=== PATIENT | female | born 1950 | race Hispanic/Latino ===

== ENCOUNTER 2016-12-21 22:13 | Emergency (ER) | payer MEDICARE ==
[2016-12-21 23:22] VITALS: BP 124/70
--- NOTE | 2016-12-22 00:08 | XRay Report ---
FINAL REPORT PROCEDURE: XR CHEST ROUTINE 2V TECHNIQUE: PA and lateral chest radiographs were obtained. CPT 58878 HISTORY: SHAAN COMPARISON: No prior studies are available for comparison. FINDINGS: Heart: Normal. Mediastinum/Vessels: Normal. Lungs/Pleural space: There is moderate COPD. There is a small left pleural effusion. There are bibasilar infiltrates. There are right perihilar infiltrates. There are no pneumothoraces.. Bony thorax: No acute osseous abnormality. Other: IMPRESSION: The heart size is normal.. There is moderate COPD. There is a small left pleural effusion. There are bibasilar infiltrates. There are right perihilar infiltrates. There are no pneumothoraces..
[2016-12-22] MEDS ORDERED: ZOFRAN ODT PO ONE (05:22)
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
== END 2016-12-22 05:44 | disposition home or self-care (01) ==
LOC: ED 22:13
DX: J18.9 Pneumonia, unspecified organism (principal); M54.9 Dorsalgia, unspecified
CPT/HCPCS: 71020; Q0162

== ENCOUNTER 2017-04-15 18:05 | Emergency (ER) | payer MEDICARE ==
[2017-04-15 18:21] VITALS: BP 102/61
--- NOTE | 2017-04-16 00:18 | Emergency Department Report ---
ED General Adult HPI - General Chief complaint: Medical Clearance Stated complaint: DEPRESSION Time Seen by Provider: 04/16/17 00:03 Source: patient Mode of arrival: Ambulatory Limitations: No Limitations - History of Present Illness Initial comments: Patient is 66 years old female history of COPD, HIV and arthritis and depression. Patient stated that she was at [facility] ER diagnosed with pneumonia, she was given a prescription for this zithromax, she is unable to fill the prescription because of the copayment of $4 that she does not have. She stated that her brother is coming tomorrow and he usually had the money so she can get her prescription filled tomorrow. She came here today to see if she can get a dose of her medication before tomorrow. Patient denied any suicidal or homicidal thoughts she denied any visual or auditory hallucination. She admitted depression but she does not want any help for it now. Patient denied any chest pain shortness of breaths fever, nausea or vomiting or diarrhea. - Related Data Allergies Allergy/AdvReac Type Severity Reaction Status Date / Time amoxicillin [From Augmentin] Allergy Unknown Verified 12/21/16 23:10 clavulanic acid Allergy Unknown Verified 12/21/16 23:10 [From Augmentin] gentamicin Allergy Unknown Verified 12/21/16 23:10 ED Review of Systems ROS: Stated complaint: DEPRESSION Other details as noted in HPI Comment: All other systems reviewed and negative Constitutional: denies: chills, fever Respiratory: cough. denies: shortness of breath, SOB with exertion Cardiovascular: denies: chest pain, palpitations Gastrointestinal: denies: abdominal pain, nausea, vomiting, diarrhea Neurological: denies: headache, weakness, numbness, paresthesias Psychiatric: depression. denies: auditory hallucinations, visual hallucinations , homicidal thoughts, suicidal thoughts ED Past Medical Hx - Past Medical History Hx Arthritis: Yes Hx Psychiatric Treatment: Yes (depression) Hx COPD: Yes Hx HIV: Yes Additional medical history: sleep apnea - Surgical History Additional Surgical History: tonsilectomy, hysterectomy - Social History Smoking Status: Current Every Day Smoker Substance Use Type: None ED Physical Exam - General Limitations: No Limitations General appearance: alert, in no apparent distress - Head Head exam: Present: atraumatic, normocephalic - Eye Eye exam: Present: normal appearance, PERRL - ENT ENT exam: Present: normal exam, normal orophraynx, mucous membranes moist - Neck Neck exam: Present: normal inspection, full ROM. Absent: tenderness, meningismus - Respiratory Respiratory exam: Present: normal lung sounds bilaterally. Absent: respiratory distress, wheezes, rales, rhonchi, stridor, accessory muscle use, decreased breath sounds, prolonged expiratory - Cardiovascular Cardiovascular Exam: Present: regular rate, normal rhythm, normal heart sounds - GI/Abdominal GI/Abdominal exam: Present: soft, normal bowel sounds. Absent: distended, tenderness, guarding, rebound, rigid, organomegaly, mass, bruit, pulsatile mass , hernia - Extremities Exam Extremities exam: Present: normal inspection, full ROM, normal capillary refill - Back Exam Back exam: Present: normal inspection, full ROM. Absent: CVA tenderness (R), CVA tenderness (L), muscle spasm, paraspinal tenderness, vertebral tenderness - Neurological Exam Neurological exam: Present: alert, oriented X3, CN II-XII intact, normal gait - Skin Skin exam: Present: warm, intact, normal color ED Course Vital Signs 04/15/17 18:14 Temperature 98.1 F Pulse Rate 80 Respiratory 18 Rate Blood Pressure 102/61 O2 Sat by Pulse 98 Oximetry - Reevaluation(s) Reevaluation #1: 04/16/17 02:30 Patient observed in the ER, no acute distress. Patient will be discharged home to refill her prescription this morning and to follow-up with her primary care physician and [place] [facility] for further management. Critical care attestation.: If time is entered above; I have spent that time in minutes in the direct care of this critically ill patient, excluding procedure time. ED Disposition Clinical Impression: Pneumonia Disposition: - TO HOME OR SELFCARE Is pt being admited?: No Condition: Stable Instructions: Bacterial Pneumonia (ED) Referrals: PRIMARY CARE, [Primary Care Provider] - 3-5 Days
[2017-04-16] MEDS ORDERED: ABILIFY PO ONE (00:19)
[2017-04-16] MEDS ORDERED: ZITHROMAX PO ONE (00:19)
[2017-04-16] MEDS ORDERED: PROVENTIL IH ONE (00:56)
[2017-04-16] MEDS ORDERED: TORADOL PO ONE (00:56)
[2017-04-16] MEDS ORDERED: PEPCID PO ONE (00:56)
== END 2017-04-16 03:39 | disposition home or self-care (01) ==
LOC: ED 18:05
DX: J18.9 Pneumonia, unspecified organism (principal); J44.9 Chronic obstructive pulmonary disease, unspecified; M19.90 Unspecified osteoarthritis, unspecified site; Z88.1 Allergy status to other antibiotic agents; G47.30 Sleep apnea, unspecified; F17.200 Nicotine dependence, unspecified, uncomplicated
CPT/HCPCS: 99282

== ENCOUNTER 2017-07-28 11:13 | Emergency (ER) | payer MEDICARE ==
[2017-07-28 12:16] VITALS: BP 148/87
--- NOTE | 2017-07-28 14:11 | Emergency Department Report ---
ED General Adult HPI - General Chief complaint: Medical Clearance Stated complaint: SOB Time Seen by Provider: 07/28/17 13:45 Source: patient Mode of arrival: Ambulatory Limitations: No Limitations - History of Present Illness Initial comments: Patient is a 66-year-old female with past medical history of COPD who states she's been in alf for approximately 1 month without meds. Patient states he has some mild shortness of breath but denies any chest pains or cough congestion and fevers chills night sweats or hemoptysis. Patient wanted to come to the emergency department today just to get checked out - Related Data Previous Rx's Medication Instructions Recorded Last Taken Type ALBUTEROL Inhaler [ProAir HFA 2 puff IH QID PRN #1 inhalation 07/28/17 Unknown Rx Inhaler] Allergies Allergy/AdvReac Type Severity Reaction Status Date / Time amoxicillin [From Augmentin] Allergy Unknown Verified 12/21/16 23:10 clavulanic acid Allergy Unknown Verified 12/21/16 23:10 [From Augmentin] gentamicin Allergy Unknown Verified 12/21/16 23:10 ED Review of Systems ROS: Stated complaint: SOB Other details as noted in HPI Comment: All other systems reviewed and negative ED Past Medical Hx - Past Medical History Hx Arthritis: Yes Hx Psychiatric Treatment: Yes (depression) Hx COPD: Yes Hx HIV: Yes Additional medical history: sleep apnea - Surgical History Additional Surgical History: tonsilectomy, hysterectomy - Social History Smoking Status: Never Smoker Substance Use Type: None - Medications Home Medications: Home Medications Medication Instructions Recorded Confirmed Last Taken Type ALBUTEROL Inhaler [ProAir HFA 2 puff IH QID PRN #1 inhalation 07/28/17 Unknown Rx Inhaler] ED Physical Exam - General Limitations: No Limitations General appearance: alert, in no apparent distress - Head Head exam: Present: atraumatic, normocephalic - Eye Eye exam: Present: normal appearance - ENT ENT exam: Present: mucous membranes moist - Neck Neck exam: Present: normal inspection - Respiratory Respiratory exam: Present: normal lung sounds bilaterally. Absent: respiratory distress, wheezes, rales, rhonchi, stridor, chest wall tenderness, accessory muscle use, decreased breath sounds, prolonged expiratory - Cardiovascular Cardiovascular Exam: Present: regular rate, normal rhythm. Absent: systolic murmur, diastolic murmur, rubs, gallop - GI/Abdominal GI/Abdominal exam: Present: soft, normal bowel sounds - Extremities Exam Extremities exam: Present: normal inspection - Back Exam Back exam: Present: normal inspection - Neurological Exam Neurological exam: Present: alert, oriented X3 - Psychiatric Psychiatric exam: Present: normal affect, normal mood - Skin Skin exam: Present: warm, dry, intact, normal color. Absent: rash ED Course Vital Signs 07/28/17 12:11 Temperature 98.6 F Pulse Rate 91 H Respiratory 16 Rate Blood Pressure 148/87 O2 Sat by Pulse 97 Oximetry ED Medical Decision Making - Medical Decision Making Despite having a history of COPD the patient's lungs sound within normal limits at this time. Patient will be referred to pulmonology for routine follow-up will be given a albuterol inhaler. Critical care attestation.: If time is entered above; I have spent that time in minutes in the direct care of this critically ill patient, excluding procedure time. ED Disposition Clinical Impression: COPD (chronic obstructive pulmonary disease) Disposition: DC-01 TO HOME OR SELFCARE Is pt being admited?: No Does the pt Need Aspirin: No Condition: Stable Instructions: Chronic Obstructive Pulmonary Disease (ED) Prescriptions: ALBUTEROL Inhaler [ProAir HFA Inhaler] 2 puff IH QID PRN #1 inhalation PRN Reason: Shortness Of Breath Referrals: PRIMARY CARE, [Primary Care Provider] - 3-5 Days
== END 2017-07-28 14:34 | disposition home or self-care (01) ==
LOC: ED 11:13
DX: J44.9 Chronic obstructive pulmonary disease, unspecified (principal); Z88.1 Allergy status to other antibiotic agents; Z88.8 Allergy status to other drugs, medicaments and biological substances
CPT/HCPCS: 99282

== ENCOUNTER 2017-08-29 15:05 | Emergency (ER) | payer MEDICARE ==
[2017-08-29 15:34] VITALS: BP 107/60
[2017-08-29] MEDS ORDERED: NACL 0.9% 1000 ML 1,000 ML IV ONE (15:35)
[2017-08-29 16:31] LABS: Bilirubin,Urine NEG (Negative); Blood,Urine NEG (Negative); Color,Urine Yellow (Yellow); RBC,Urine < 1.0 /HPF (0.0-6.0); Urobilinogen,Urine < 2.0 mg/dL (<2.0)
--- NOTE | 2017-08-29 16:46 | Emergency Department Report ---
ED Abdominal Pain HPI - General Chief Complaint: Nausea/Vomiting/Diarrhea Stated Complaint: NAUSEA/VOMITING Time Seen by Provider: 08/29/17 16:21 Source: patient Mode of arrival: Ambulatory Limitations: No Limitations - History of Present Illness Initial Comments: Patient is a 66-year-old female who is presenting with GERD type symptoms. Patient states for the past 2 days she's had some nausea when she is lying flat. Patient was set up last night to get the symptoms resolved. Patient says a burning sensation in epigastrium with some radiation to the chest. Patient had episodes of nausea vomiting with it. Patient denies any fevers chills diarrhea. Patient states in the daytime she is pain-free is pain-free at this time. She has a history of taking ranitidine was been told she needs to be on a PPI - Related Data Previous Rx's Medication Instructions Recorded Last Taken Type ALBUTEROL Inhaler [ProAir HFA 2 puff IH QID PRN #1 inhalation 07/28/17 Unknown Rx Inhaler] Ondansetron [Zofran Odt] 4 mg PO Q8HR PRN #10 tab.rapdis 08/29/17 Unknown Rx Pantoprazole [Protonix TAB] 20 mg PO DAILY #30 tablet. 08/29/17 Unknown Rx Allergies Allergy/AdvReac Type Severity Reaction Status Date / Time amoxicillin [From Augmentin] Allergy Unknown Verified 12/21/16 23:10 clavulanic acid Allergy Unknown Verified 12/21/16 23:10 [From Augmentin] gentamicin Allergy Unknown Verified 12/21/16 23:10 ED Review of Systems ROS: Stated complaint: NAUSEA/VOMITING Other details as noted in HPI Comment: All other systems reviewed and negative ED Past Medical Hx - Past Medical History Hx GERD: Yes Hx Arthritis: Yes Hx Psychiatric Treatment: Yes (depression) Hx COPD: Yes Hx HIV: Yes (last check[facility] at [facility]) Additional medical history: sleep apnea - Surgical History Additional Surgical History: tonsilectomy, hysterectomy - Social History Smoking Status: Former Smoker Substance Use Type: None - Medications Home Medications: Home Medications Medication Instructions Recorded Confirmed Last Taken Type ALBUTEROL Inhaler [ProAir HFA 2 puff IH QID PRN #1 inhalation 07/28/17 Unknown Rx Inhaler] Ondansetron [Zofran Odt] 4 mg PO Q8HR PRN #10 tab.rapdis 08/29/17 Unknown Rx Pantoprazole [Protonix TAB] 20 mg PO DAILY #30 tablet. 08/29/17 Unknown Rx ED Physical Exam - General Limitations: No Limitations General appearance: alert, in no apparent distress - Head Head exam: Present: atraumatic, normocephalic - Eye Eye exam: Present: normal appearance - ENT ENT exam: Present: mucous membranes moist - Neck Neck exam: Present: normal inspection - Respiratory Respiratory exam: Present: normal lung sounds bilaterally. Absent: respiratory distress, wheezes, rales, rhonchi - Cardiovascular Cardiovascular Exam: Present: regular rate, normal rhythm. Absent: systolic murmur, diastolic murmur, rubs, gallop - GI/Abdominal GI/Abdominal exam: Present: soft, normal bowel sounds. Absent: distended, tenderness, guarding, rebound - Extremities Exam Extremities exam: Present: normal inspection - Back Exam Back exam: Present: normal inspection - Neurological Exam Neurological exam: Present: alert, oriented X3 - Psychiatric Psychiatric exam: Present: normal affect, normal mood - Skin Skin exam: Present: warm, dry, intact, normal color. Absent: rash ED Course Vital Signs 08/29/17 15:30 Temperature 99.3 F Pulse Rate 96 H Respiratory 18 Rate Blood Pressure 107/60 O2 Sat by Pulse 96 Oximetry ED Medical Decision Making - Medical Decision Making Patient be started on Protonix and will be discharged home. Critical care attestation.: If time is entered above; I have spent that time in minutes in the direct care of this critically ill patient, excluding procedure time. ED Disposition Clinical Impression: GERD (gastroesophageal reflux disease) Qualifiers: Esophagitis presence: without esophagitis Qualified Code(s): K21.9 - Gastro- esophageal reflux disease without esophagitis Disposition: DC- TO HOME OR SELFCARE Is pt being admited?: No Does the pt Need Aspirin: No Condition: Stable Instructions: Gastroesophageal Reflux Disease (ED) Prescriptions: Ondansetron [Zofran Odt] 4 mg PO Q8HR PRN #10 tab.rapdis PRN Reason: Nausea Pantoprazole [Protonix TAB] 20 mg PO DAILY #30 tablet. Referrals: PRIMARY CARE, [Primary Care Provider] - 3-5 Days
== END 2017-08-29 17:04 | disposition home or self-care (01) ==
LOC: ED 15:05
DX: K21.9 Gastro-esophageal reflux disease without esophagitis (principal); M19.90 Unspecified osteoarthritis, unspecified site; J44.9 Chronic obstructive pulmonary disease, unspecified; Z87.891 Personal history of nicotine dependence; Z88.1 Allergy status to other antibiotic agents; Z88.8 Allergy status to other drugs, medicaments and biological substances; Z90.710 Acquired absence of both cervix and uterus
CPT/HCPCS: 81001; 99283

== ENCOUNTER 2017-09-18 18:09 | Emergency (ER) | payer MEDICARE ==
[2017-09-18] MEDS ORDERED: BENADRYL IV ONE (20:53)
[2017-09-18] MEDS ORDERED: ZOFRAN IV ONE (20:53)
--- NOTE | 2017-09-18 20:56 | Emergency Department Report ---
ED Headache HPI - General Chief Complaint: Headache Stated Complaint: MIGRAINE, NAUSEA Time Seen by Provider: 09/18/17 20:02 Source: patient Exam Limitations: no limitations - History of Present Illness Timing/Duration: other (2 weeks. ) Quality: severe Head Injury Location: frontal Recent Head Trauma: no recent headache/trauma, chronic headaches Modifying Factors: improves with: cold therapy, exposure to light, medication, movement, rest Associated Symptoms: denies symptoms, nausea/vomiting. denies: confusion, fatigue, facial pain, fever/chills, flushing, loss of consciousness, nasal congestion, nasal drainage, numbness in legs/feet, rash, seizures, sinus infection, stiff neck, vision changes, weakness Allergies/Adverse Reactions: Allergies amoxicillin [From Augmentin] Allergy (Verified 12/21/16 23:10) Unknown clavulanic acid [From Augmentin] Allergy (Verified 12/21/16 23:10) Unknown gentamicin Allergy (Verified 12/21/16 23:10) Unknown Home Medications: Ambulatory Orders ALBUTEROL Inhaler [ProAir HFA Inhaler] 2 puff IH QID PRN #1 inhalation 07/28/17 Pantoprazole [Protonix TAB] 20 mg PO DAILY #30 tablet.dr 08/29/17 Ondansetron [Zofran Odt] 4 mg PO Q8HR PRN #10 tab.rapdis 09/19/17 methylPREDNISolone [Medrol] 4 mg PO DAILY 6 Days #1 tab.ds.pk 09/19/17 ED Review of Systems ROS: Stated complaint: MIGRAINE, NAUSEA Other details as noted in HPI Constitutional: denies: chills, fever Eyes: denies: eye pain, eye discharge, vision change ENT: denies: ear pain, throat pain Respiratory: denies: cough, shortness of breath, wheezing Cardiovascular: denies: chest pain, palpitations Endocrine: no symptoms reported Gastrointestinal: nausea. denies: abdominal pain, diarrhea Genitourinary: denies: urgency, dysuria, discharge Musculoskeletal: denies: back pain, joint swelling, arthralgia Skin: denies: rash, lesions Neurological: headache. denies: weakness, paresthesias Psychiatric: denies: anxiety, depression Hematological/Lymphatic: denies: easy bleeding, easy bruising ED Past Medical Hx - Past Medical History Previous Medical History?: Yes Hx GERD: Yes Hx Arthritis: Yes Hx Psychiatric Treatment: Yes (depression) Hx COPD: Yes Hx HIV: Yes ([facility] Additional medical history: sleep apnea - Surgical History Past Surgical History?: Yes Additional Surgical History: tonsilectomy, hysterectomy - Family History Family history: hypertension - Social History Smoking Status: Current Every Day Smoker Substance Use Type: None - Medications Home Medications: Home Medications Medication Instructions Recorded Confirmed Last Taken Type ALBUTEROL Inhaler [ProAir HFA 2 puff IH QID PRN #1 inhalation 07/28/17 Unknown Rx Inhaler] Pantoprazole [Protonix TAB] 20 mg PO DAILY #30 tablet.dr 08/29/17 Unknown Rx Ondansetron [Zofran Odt] 4 mg PO Q8HR PRN #10 tab.rapdis 09/19/17 Unknown Rx methylPREDNISolone [Medrol] 4 mg PO DAILY 6 Days #1 tab.ds.pk 09/19/17 Unknown Rx ED Physical Exam - General Limitations: No Limitations General appearance: alert, in no apparent distress - Head Head exam: Present: atraumatic, normocephalic - Eye Eye exam: Present: normal appearance - ENT ENT exam: Present: mucous membranes moist - Neck Neck exam: Present: normal inspection - Respiratory Respiratory exam: Present: normal lung sounds bilaterally. Absent: respiratory distress - Cardiovascular Cardiovascular Exam: Present: regular rate, normal rhythm. Absent: systolic murmur, diastolic murmur, rubs, gallop - GI/Abdominal GI/Abdominal exam: Present: soft, normal bowel sounds - Extremities Exam Extremities exam: Present: normal inspection - Back Exam Back exam: Present: normal inspection - Neurological Exam Neurological exam: Present: alert, oriented X3 - Psychiatric Psychiatric exam: Present: normal affect, normal mood - Skin Skin exam: Present: warm, dry, intact, normal color. Absent: rash ED Course Vital Signs 09/18/17 09/18/17 09/18/17 18:14 20:15 22:15 Temperature 99.0 F Pulse Rate 85 68 68 Respiratory 16 18 18 Rate Blood Pressure 123/62 Blood Pressure 127/69 117/63 [Left] O2 Sat by Pulse 96 98 97 Oximetry 09/18/17 09/19/17 23:31 00:15 Temperature Pulse Rate 72 Respiratory 18 16 Rate Blood Pressure Blood Pressure 117/67 [Left] O2 Sat by Pulse 97 96 Oximetry - Reevaluation(s) Reevaluation #1: Patient is pain-free. Patient denies headache and nausea at this time. Patient states she is ready to go home. Patient given by mouth food and no vomiting or nausea noted. Patient to follow up with primary care. Patient given discharge instructions. Patient voiced understanding. 09/19/17 00:45 Reevaluation #2: Physical exam does not correlate with CT findings of mastoiditis. No fluctuance to the posterior ear. no redness or tenderness noted. no warmth noted behind ears. 09/19/17 00:48 ED Medical Decision Making - Lab Data Result diagrams: 09/18/17 21:00 09/18/17 21:00 - Radiology Data Radiology results: report reviewed PROCEDURE: CT HEAD/BRAIN WO CON TECHNIQUE: Computerized tomography of the head was performed without contrast material. DLP 1050.22 mGy-cm. HISTORY: Headache. Nausea. COMPARISON: No prior studies are available for comparison. FINDINGS: Skull and scalp: Hyperostosis frontalis. Paranasal sinuses: Slight leftward septal deviation. Moderate opacification of the right mastoid air cells. Small air-fluid level a posterior left ethmoid air cell. Ventricles and subarachnoid spaces: Normal. Cerebrum: No evidence of hemorrhage, acute infarction or mass . Cerebellum and brainstem: No evidence of hemorrhage, acute infarction or mass. Vasculature: Mild atherosclerosis of the cavernous ICAs. Comments: None. IMPRESSION: No CT evidence of acute intracranial pathology. Consider MRI of the brain for further evaluation if there is continued clinical concern and if patient has no contraindication to MRI. Right mastoiditis. Possible minimal left mastoiditis. Transcribed By: RANJIT Dictated By: TORO AVALOS MD Electronically Authenticated By: TORO AVALOS MD Signed Date/Time: 2201 - Medical Decision Making 66-year-old female presents emergency room with migraine headache [address] head is negative. CTA head shows right mastoiditis. However patient has no tenderness over the mastoid bone patient denies pain at the time of discharge. Patient denies ear pain. Patient responded well to therapy. Will discharge patient home on a Medrol Dosepak and have patient follow up with her neurologist and primary care. - Differential Diagnosis davies. migraine. n/v. Critical care attestation.: If time is entered above; I have spent that time in minutes in the direct care of this critically ill patient, excluding procedure time. ED Disposition Clinical Impression: Nausea Migraine headache Qualifiers: Migraine type: unspecified Status migrainosus presence: without status migrainosus Intractability: not intractable Qualified Code(s): G43.909 - Migraine, unspecified, not intractable, without status migrainosus Disposition: TO HOME OR SELFCARE Is pt being admited?: No Does the pt Need Aspirin: No Condition: Stable Instructions: Migraine Headache (ED), Acute Headache (ED) Additional Instructions: Patient follow up with primary care in 3-5 days. Patient to follow-up with neurologist in 3-5 days. Patient take meds as directed. Patient to return to ER if condition worsens. Patient to rest. Patient to increase water. Patient to take ibuprofen or Tylenol when necessary for pain Prescriptions: methylPREDNISolone [Medrol] 4 mg PO DAILY 6 Days #1 tab.ds.pk Ondansetron [Zofran Odt] 4 mg PO Q8HR PRN #10 tab.rapdis PRN Reason: Nausea Referrals: PRIMARY CARE, [Primary Care Provider] - 3-5 Days Time of Disposition: 00:45
[2017-09-18 21:21] LABS: Hematocrit 35.4 % (30.3-42.9); Hemoglobin 12.5 gm/dl (10.1-14.3); Mean Corpuscular HGB Conc 36 % (30-34); Mean Corpuscular Hemoglobin 33 pg (28-32); Mean Corpuscular Volume 94 fl (79-97); Platelet Count 227 K/mm3 (140-440); Red Blood Count 3.77 M/mm3 (3.65-5.03); Red Cell Distribution Width 18.1 % (13.2-15.2)
[2017-09-18 21:36] LABS: Alanine Aminotransferase 11 units/L (7-56); Albumin 4.2 g/dL (3.9-5); BUN/Creatinine Ratio 36; Blood Urea Nitrogen 18 mg/dL (7-17); Calcium 9.3 mg/dL (8.4-10.2); Hemolysis Index 0
--- NOTE | 2017-09-18 22:08 | Cat Scan Report ---
FINAL REPORT PROCEDURE: CT HEAD/BRAIN WO CON TECHNIQUE: Computerized tomography of the head was performed without contrast material. DLP 1050.22 mGy-cm. HISTORY: Headache. Nausea. COMPARISON: No prior studies are available for comparison. FINDINGS: Skull and scalp: Hyperostosis frontalis. Paranasal sinuses: Slight leftward septal deviation. Moderate opacification of the right mastoid air cells. Small air-fluid level a posterior left ethmoid air cell. Ventricles and subarachnoid spaces: Normal. Cerebrum: No evidence of hemorrhage, acute infarction or mass . Cerebellum and brainstem: No evidence of hemorrhage, acute infarction or mass. Vasculature: Mild atherosclerosis of the cavernous ICAs. Comments: None. IMPRESSION: No CT evidence of acute intracranial pathology. Consider MRI of the brain for further evaluation if there is continued clinical concern and if patient has no contraindication to MRI. Right mastoiditis. Possible minimal left mastoiditis.
[2017-09-19 00:45] VITALS: BP 117/67
== END 2017-09-19 01:27 | disposition home or self-care (01) ==
LOC: ED 18:09
DX: G43.909 Migraine, unspecified, not intractable, without status migrainosus (principal); K21.9 Gastro-esophageal reflux disease without esophagitis; M19.90 Unspecified osteoarthritis, unspecified site; J44.9 Chronic obstructive pulmonary disease, unspecified; F17.200 Nicotine dependence, unspecified, uncomplicated; Z90.710 Acquired absence of both cervix and uterus; Z88.1 Allergy status to other antibiotic agents; Z88.8 Allergy status to other drugs, medicaments and biological substances
CPT/HCPCS: 36415; 70450; 80053; 85027; 96374; 96375; 99284; J1200; J2405; J2930

== ENCOUNTER 2017-09-19 02:34 | Emergency (ER) | payer MEDICARE ==
[2017-09-19] MEDS ORDERED: TYLENOL ONE (04:53)
[2017-09-19 04:59] VITALS: BP 109/72
[2017-09-19] MEDS ORDERED: TYLENOL PO ONE (04:59)
== END 2017-09-19 08:26 ==
LOC: ED 02:34
DX: R51 Headache (principal); Z53.21 Procedure and treatment not carried out due to patient leaving prior to being seen by health care provider

== ENCOUNTER 2017-09-27 16:37 | Emergency (ER) | payer MEDICARE ==
[2017-09-27 16:45] VITALS: BP 112/69
--- NOTE | 2017-09-27 17:26 | Emergency Department Report ---
ED Headache HPI - General Chief Complaint: Headache Stated Complaint: SOB PROBLEMS Time Seen by Provider: 09/27/17 17:09 Source: patient, family - History of Present Illness Initial Comments: Patient presents to emergency room today reporting that she is having headache on both sides of her head frontally. She said her primary care doctor is Dr. Neves and she saw her recently for problems of breathing. She is on medication for COPD. Denies any shortness of breath prompted present. She says she is having a migraine headache and stated that medications were supposed to be delivered to house and they have not been delivered. She reports rash to her ankle. She said headache is 10/10 and achy and headache is worse and light. No alleviating factors. Patient said the she has not had a CT scan in the last year per record shows that Dr. Helm saw her on 2017 and she was placed on medication for headache and referred to neurology and patient that she did not go. CT scan was done and showed mastoiditis but no intracranial abnormality. I discussed with the patient she says she remember now. She denies any nausea or vomiting. Denies any injury or neck pain or stiffness. She does have nasal congestion and runny nose and so she has allergies. Denies any dizziness or blurred vision. Patient says she gets headaches frequently but she never followed up with a neurologist and she was returning here in [place]. Timing/Duration: 1 week, waxing and waning Quality: severe, achy Head Injury Location: frontal Recent Head Trauma: frequent headaches Modifying Factors: improves with: exposure to light Associated Symptoms: nasal congestion, nasal drainage, rash (rash to ankles), other (denies any ear pain and reports chronic allergies). denies: confusion, fatigue, facial pain, fever/chills, flushing, loss of consciousness, nausea/ vomiting, numbness in legs/feet, seizures, sinus infection, stiff neck, vision changes, weakness Allergies/Adverse Reactions: Allergies amoxicillin [From Augmentin] Allergy (Verified 09/27/17 16:42) Unknown clavulanic acid [From Augmentin] Allergy (Verified 09/27/17 16:42) Unknown gentamicin Allergy (Verified 09/27/17 16:42) Unknown Home Medications: Ambulatory Orders ALBUTEROL Inhaler [ProAir HFA Inhaler] 2 puff IH QID PRN #1 inhalation 07/28/17 Pantoprazole [Protonix TAB] 20 mg PO DAILY #30 tablet.dr 08/29/17 Ondansetron [Zofran Odt] 4 mg PO Q8HR PRN #10 tab.rapdis 09/19/17 methylPREDNISolone [Medrol Dose Obey] 4 mg PO DAILY 6 Days #1 tab.ds.pk 09/19/17 Butalb/Acetaminophen/Caffeine [Fioricet 50-300-40 mg CAP] 1 cap PO Q8HR PRN #12 cap 09/27/17 Cetirizine HCl [ZyrTEC] 10 mg PO QDAY 21 Days #21 tab.rapdis 09/27/17 Fluticasone [Flonase] 1 spray NS QDAY 14 Days #1 bottle 09/27/17 Levofloxacin [Levaquin TAB] 500 mg PO QDAY 7 Days #7 tablet 09/27/17 predniSONE [Deltasone] 50 mg PO QDAY 3 Days #3 tab 09/27/17 ED Review of Systems ROS: Stated complaint: SOB PROBLEMS Other details as noted in HPI Constitutional: denies: chills, fever, malaise, weakness Eyes: other (sensitivity to light). denies: eye pain, eye discharge, vision change ENT: denies: ear pain, throat pain, hearing loss, epistaxis, congestion Respiratory: denies: cough, shortness of breath, SOB with exertion, SOB at rest , stridor, wheezing Cardiovascular: denies: chest pain, palpitations, dyspnea on exertion, edema, syncope, paroxysmal nocturnal dyspnea Gastrointestinal: denies: abdominal pain, nausea, vomiting, diarrhea, constipation, hematemesis, hematochezia Genitourinary: denies: urgency, dysuria, hematuria, discharge Musculoskeletal: denies: back pain, joint swelling, arthralgia, myalgia Skin: rash (ankles). denies: lesions Neurological: headache. denies: weakness, numbness, paresthesias, confusion, abnormal gait, vertigo Psychiatric: denies: anxiety, depression ED Past Medical Hx - Past Medical History Previous Medical History?: Yes Hx Hypertension: Yes Hx GERD: Yes Hx Arthritis: Yes Hx Psychiatric Treatment: Yes (depression) Hx COPD: Yes Hx HIV: Yes Additional medical history: sleep apnea - Surgical History Past Surgical History?: Yes Additional Surgical History: tonsilectomy, hysterectomy - Family History Family history: hypertension - Social History Smoking Status: Current Every Day Smoker Substance Use Type: None - Medications Home Medications: Home Medications Medication Instructions Recorded Confirmed Last Taken Type ALBUTEROL Inhaler [ProAir HFA 2 puff IH QID PRN #1 inhalation 07/28/17 Unknown Rx Inhaler] Pantoprazole [Protonix TAB] 20 mg PO DAILY #30 tablet.dr 08/29/17 Unknown Rx Ondansetron [Zofran Odt] 4 mg PO Q8HR PRN #10 tab.rapdis 09/19/17 Unknown Rx methylPREDNISolone [Medrol Dose 4 mg PO DAILY 6 Days #1 tab.ds.pk 09/19/17 Unknown Rx Obey] Butalb/Acetaminophen/Caffeine 1 cap PO Q8HR PRN #12 cap 09/27/17 Unknown Rx [Fioricet 50-300-40 mg CAP] Cetirizine HCl [ZyrTEC] 10 mg PO QDAY 21 Days #21 09/27/17 Unknown Rx tab.rapdis Fluticasone [Flonase] 1 spray NS QDAY 14 Days #1 bottle 09/27/17 Unknown Rx Levofloxacin [Levaquin TAB] 500 mg PO QDAY 7 Days #7 tablet 09/27/17 Unknown Rx predniSONE [Deltasone] 50 mg PO QDAY 3 Days #3 tab 09/27/17 Unknown Rx ED Physical Exam - General Limitations: No Limitations General appearance: alert, in no apparent distress - Head Head exam: Present: atraumatic, normocephalic, normal inspection, other (normal exam) - Eye Eye exam: Present: normal appearance, PERRL, EOMI. Absent: nystagmus, periorbital swelling, periorbital tenderness Pupils: Present: normal accommodation - ENT ENT exam: Present: normal orophraynx, mucous membranes moist, normal external ear exam, other (bilateral frontomaxillary sinuses nontender to palpate. His mucosa congested and erythema with clear drainage.). Absent: normal exam, TM's normal bilaterally (bilateral TM congested without erythema. Bilateral mastoid bone nontender to palpate. No erythema.) - Neck Neck exam: Present: normal inspection, full ROM, other (no C-spine tenderness). Absent: tenderness, meningismus, lymphadenopathy - Respiratory Respiratory exam: Present: normal lung sounds bilaterally. Absent: respiratory distress, wheezes, rales, rhonchi, stridor, chest wall tenderness, accessory muscle use - Cardiovascular Cardiovascular Exam: Present: regular rate, normal rhythm, normal heart sounds. Absent: systolic murmur, diastolic murmur - GI/Abdominal GI/Abdominal exam: Present: soft, normal bowel sounds. Absent: distended, tenderness, guarding, rebound, rigid - Extremities Exam Extremities exam: Present: normal inspection, full ROM, normal capillary refill , other (No cce. + 2 pulses in all extremities, no neurovascular compromise). Absent: tenderness, pedal edema, joint swelling, calf tenderness - Back Exam Back exam: Present: normal inspection, full ROM, other (ambulates without any difficulties). Absent: tenderness, CVA tenderness (R), CVA tenderness (L), muscle spasm, paraspinal tenderness, vertebral tenderness, rash noted - Neurological Exam Neurological exam: Present: alert, oriented X3, normal gait, reflexes normal. Absent: motor sensory deficit - Expanded Neurological Exam Expanded Neurological exam: Absent: innattentive, memory loss-remote event, memory loss- recent event, ataxia, receptive aphasia, expressive aphasia, total aphasia, tremor, protecting the airway Patient oriented to: Present: person, place, time Speech: Present: fluid speech Cranial nerves: EOM's Intact: Normal, Gag Reflex: Normal, Tongue Deviation: Normal, Nystagmus: Normal, Facial Sensation: Normal Cerebellar function: Romberg: Normal Upper motor neuron: Pronator Drift: Normal, Sensory Extinction: Normal Sensory exam: Upper Extremity Light Touch: Normal, Upper Extremity Temperature: Normal, UE 2 Point Discrimination: Normal, Lower Extremity Light Touch: Normal, Lower Extremity Temperature: Normal, LE 2 Point Discrimination: Normal Motor strength exam: RUE: 5, LUE: 5, RLE: 5, LLE: 5 Best Eye Response (Shiva): (4) open spontaneously Best Motor Response (Shiva): (6) obeys commands Best Verbal Response (Shiva): (5) oriented [place] Total: 15 - Psychiatric Psychiatric exam: Present: normal affect, normal mood - Skin Skin exam: Present: warm, dry, intact, normal color, rash (noted scratch jenny to ankle Bilaterally. No signs of infection noted.) ED Course Vital Signs 09/27/17 16:42 Temperature 98.5 F Pulse Rate 92 H Respiratory 18 Rate Blood Pressure 112/69 O2 Sat by Pulse 95 Oximetry - Reevaluation(s) Reevaluation #1: 09/27/17 18:38 Patient given Decadron 10 mg IM, Toradol 30 mg IM, Zofran 8 mg ODT and fears that 2 tablets when necessary emergency room for headache and she voiced relief of headache. Her pain is now down to 1 out of 10 and she says she feels better. ED Medical Decision Making - Radiology Data Radiology results: report reviewed Findings [facility] [address] [place] [address] Cat Scan Report Signed Patient: JESUS MCLEOD MR#: [id number] : 1950 Acct:[id number] Age/Sex: 66 / F ADM Date: 09/18/17 Loc: ED Attending Dr: Ordering Physician: GUS RIOS III, MD Date of Service: 09/18/17 Procedure(s): CT head/brain wo con Accession Number(s): [id number] cc: GUS RIOS III, MD FINAL REPORT PROCEDURE: CT HEAD/BRAIN WO CON TECHNIQUE: Computerized tomography of the head was performed without contrast material. DLP 1050.22 mGy-cm. HISTORY: Headache. Nausea. COMPARISON: No prior studies are available for comparison. FINDINGS: Skull and scalp: Hyperostosis frontalis. Paranasal sinuses: Slight leftward septal deviation. Moderate opacification of the right mastoid air cells. Small air-fluid level a posterior left ethmoid air cell. Ventricles and subarachnoid spaces: Normal. Cerebrum: No evidence of hemorrhage, acute infarction or mass . Cerebellum and brainstem: No evidence of hemorrhage, acute infarction or mass. Vasculature: Mild atherosclerosis of the cavernous ICAs. Comments: None. IMPRESSION: No CT evidence of acute intracranial pathology. Consider MRI of the brain for further evaluation if there is continued clinical concern and if patient has no contraindication to MRI. Right mastoiditis. Possible minimal left mastoiditis. Transcribed By: RANJIT Dictated By: TORO AVALOS MD Electronically Authenticated By: TORO AVALOS MD Signed Date/Time: 09/18/172201 DD/ 01 TD/TT: 09/18/172201 - Medical Decision Making This is a 67-year-old female here reports that she has headache which she has frequently. She also has chronic environmental allergies with nasal congestion and runny nose. Reported headache frontally without any injury. Review of records show the patient was here on 09/18/2017 and she had a CT scan of the head and brain without contrast that showed no intracranial abnormality but she did have bilateral mastoiditis which was incidental findings. Physical exam at the time was negative with no erythematous TM or mastoid bone tenderness per records. Patient was treated for headache and referred to neurologist and she did not go. She is reports that she saw her primary care physician recently for other problems and she told her to go to neurologist but she did not go either. Patient was seen and examined by myself and she is neurologically intact. Her other physical exam is normal except she has bilateral TM congested without erythema and no mastoid bone tenderness. She also has nasal congestion with erythema and clear drainage. Patient's CT scan from 09/18/2017 shows that she had bilateral mastoiditis but physical exam negative. Patient denies any ear pain. She does not have any fever. Patient vital signs stable and she is afebrile. She was treated with Decadron 10 mg IM, Toradol 30 mg IM, Zofran 8 mg ODT and Fioricet 2 tablets by mouth in emergency room but she voiced relief of headache. I discussed diagnosis and treatment plan the patient and she agrees. I also discussed with her she needs to follow up with neurologist that she was recommended to f/u chronic headache. She also agrees. Patient with nasal sinusitis-Will send home on prednisone and Levaquin as she is allergic to other medication and the penicillin family. Zyrtec and Flonase Headache-better with medication and also to home on Fioricet Bilateral mastoiditis-incidental findings on CT scan and patient is asymptomatic physical exam negative. We will place her on antibiotics since she has been having sinus problems. I encouraged patient to stop smoking if she does smoke because she has COPD. Patient referred to neurologist and backed her primary care physician. She was discharged home from emergency room and prescription for prednisone, Zyrtec, Flonase and Levaquin. I instructed her to follow up with her primary care physician in 2-3 days and she agrees. - Differential Diagnosis ICH versus extracranial abnormality, sinusitis, rhinitis Critical care attestation.: If time is entered above; I have spent that time in minutes in the direct care of this critically ill patient, excluding procedure time. ED Disposition Clinical Impression: Unspecified mastoiditis, bilateral, Scratch jenny Headache Qualifiers: Headache type: unspecified Headache chronicity pattern: acute headache Intractability: not intractable Qualified Code(s): R51 - Headache Sinusitis nasal Qualifiers: Sinusitis location: unspecified location Chronicity: acute Recurrence: recurrent Qualified Code(s): J01.91 - Acute recurrent sinusitis, unspecified Disposition: - TO HOME OR SELFCARE Is pt being admited?: No Does the pt Need Aspirin: No Condition: Stable Instructions: Sinusitis (ED), Acute Headache (ED), Acute Rash (ED) Additional Instructions: Please follow up with primary care physician Follow-up with neurologist that I refer you to for frequent headache. Take medication as prescribed Please follow up with ear nose and throat doctor for incidental findings on CT scan for bilateral mastoiditis which is asymptomatic. Prescriptions: Butalb/Acetaminophen/Caffeine [Fioricet 50-300-40 mg CAP] 1 cap PO Q8HR PRN #12 cap PRN Reason: Headache Levofloxacin [Levaquin TAB] 500 mg PO QDAY 7 Days #7 tablet predniSONE [Deltasone] 50 mg PO QDAY 3 Days #3 tab Referrals: PRIMARY CAREMD [Primary Care Provider] - 09/29/17 JORDON AZUL MD [Staff Physician] - 09/29/17 RAHUL MESSINA MD [Staff Physician] - 2-3 Days
[2017-09-27] MEDS ORDERED: DECADRON IM ONE (17:50)
[2017-09-27] MEDS ORDERED: TORADOL IM ONE (17:50)
[2017-09-27] MEDS ORDERED: ZOFRAN ODT PO ONE (17:50)
[2017-09-27] MEDS ORDERED: FIORICET PO ONE (17:50)
== END 2017-09-27 19:01 | disposition home or self-care (01) ==
LOC: ED 16:37
DX: H70.93 Unspecified mastoiditis, bilateral (principal); J01.91 Acute recurrent sinusitis, unspecified; I10 Essential (primary) hypertension; K21.9 Gastro-esophageal reflux disease without esophagitis; M19.90 Unspecified osteoarthritis, unspecified site; F32.9 Major depressive disorder, single episode, unspecified; J44.9 Chronic obstructive pulmonary disease, unspecified; Z21 Asymptomatic human immunodeficiency virus [HIV] infection status; G47.30 Sleep apnea, unspecified; Z90.710 Acquired absence of both cervix and uterus; Z90.89 Acquired absence of other organs
CPT/HCPCS: 96372; 99283; J1100; J1885; Q0162

== ENCOUNTER 2017-10-08 05:32 | Emergency (ER) | payer MEDICARE ==
[2017-10-08] MEDS ORDERED: TORADOL IM ONE (10:32)
[2017-10-08] MEDS ORDERED: HALDOL IM ONE (10:32)
[2017-10-08] MEDS ORDERED: DECADRON IM ONE (10:32)
--- NOTE | 2017-10-08 10:40 | Emergency Department Report ---
ED Headache HPI - General Chief Complaint: Headache Stated Complaint: HEADACHE Time Seen by Provider: 10/08/17 10:16 - History of Present Illness Initial Comments: 67-year-old woman complains of recurrent headaches, with current headache onset this morning when she woke up, listed as quite severe, being 8 out of 10, aching and throbbing bilaterally in the frontal area. She has no fever, no nasal congestion, no sinus pressure, no sore throat. She has a history of recurrent headaches, was last seen here 3 weeks ago, had a head CT scan which showed evidence of mastoiditis, but no other intracranial abnormality, patient was medicated for her headache, and discharged on antibiotics for the mastoiditis, which was asymptomatic at that time, and reports that she has completed her antibiotics, has not had any earaches or posterior head symptoms, and feels that this has not changed her headaches. She has had recurrent headaches on an almost daily basis, last headache was yesterday, which she was seen at [facility], and treated with Fioricet for her headache. Headache is constant, throbbing, but severity noted above, without radiation, not relieved by anything that she has taken at home, and is exacerbated somewhat by movement or bending over. She has no focal neurologic symptoms Past medical history significant for tobacco abuse, COPD with intermittent emergency department visits for COPD complications were exacerbations, and patient is also HIV positive, but is stable. She has not seen a neurologist for this, reporting that there is a significant wait to be examined at the local [facility], but can see a private neurologist locally, because his appointment as month away. Patient has no other symptoms or complaints at this time. Allergies/Adverse Reactions: Allergies amoxicillin [From Augmentin] Allergy (Verified 09/27/17 16:42) Unknown clavulanic acid [From Augmentin] Allergy (Verified 09/27/17 16:42) Unknown gentamicin Allergy (Verified 09/27/17 16:42) Unknown Home Medications: Ambulatory Orders ALBUTEROL Inhaler [ProAir HFA Inhaler] 2 puff IH QID PRN #1 inhalation 07/28/17 Pantoprazole [Protonix TAB] 20 mg PO DAILY #30 tablet. 08/29/17 Ondansetron [Zofran Odt] 4 mg PO Q8HR PRN #10 tab.rashaad 08/05/18 methylPREDNISolone [Medrol Dose Obey] 4 mg PO DAILY 6 Days #1 tab.ds.pk 09/19/17 Cetirizine HCl [ZyrTEC] 10 mg PO QDAY 21 Days #21 tab.rapdis 09/27/17 Fluticasone [Flonase] 1 spray NS QDAY 14 Days #1 bottle 09/27/17 levoFLOXacin [Levaquin TAB] 500 mg PO QDAY 7 Days #7 tablet 09/27/17 predniSONE [Deltasone] 50 mg PO QDAY 3 Days #3 tab 09/27/17 Butalb/Acetaminophen/Caffeine [Fioricet 50-300-40 mg CAP] 1 cap PO Q8HR PRN #20 cap 10/08/17 ED Review of Systems ROS: Stated complaint: HEADACHE Other details as noted in HPI Constitutional: denies: chills, fever Eyes: denies: eye pain ENT: denies: throat pain Respiratory: denies: cough, shortness of breath Cardiovascular: denies: chest pain Endocrine: no symptoms reported Gastrointestinal: denies: abdominal pain, nausea, diarrhea Genitourinary: denies: urgency, dysuria, discharge Musculoskeletal: denies: back pain, joint swelling, arthralgia Skin: denies: rash, lesions Neurological: headache. denies: weakness, numbness, paresthesias, abnormal gait , vertigo Psychiatric: denies: anxiety, depression Hematological/Lymphatic: denies: easy bleeding, easy bruising ED Past Medical Hx - Past Medical History Previous Medical History?: Yes Hx Hypertension: Yes Hx GERD: Yes Hx Arthritis: Yes Hx Psychiatric Treatment: Yes (depression) Hx COPD: Yes Hx HIV: Yes Additional medical history: sleep apnea - Surgical History Past Surgical History?: Yes Additional Surgical History: tonsilectomy, hysterectomy - Social History Smoking Status: Current Every Day Smoker Substance Use Type: None - Medications Home Medications: Home Medications Medication Instructions Recorded Confirmed Last Taken Type ALBUTEROL Inhaler [ProAir HFA 2 puff IH QID PRN #1 inhalation 07/28/17 Unknown Rx Inhaler] Pantoprazole [Protonix TAB] 20 mg PO DAILY #30 tablet. 08/29/17 Unknown Rx Ondansetron [Zofran Odt] 4 mg PO Q8HR PRN #10 tab.rapdis 09/19/17 Unknown Rx methylPREDNISolone [Medrol Dose 4 mg PO DAILY 6 Days #1 tab.ds.pk 09/19/17 Unknown Rx Obey] Cetirizine HCl [ZyrTEC] 10 mg PO QDAY 21 Days #21 09/27/17 Unknown Rx tab.rapdis Fluticasone [Flonase] 1 spray NS QDAY 14 Days #1 bottle 09/27/17 Unknown Rx levoFLOXacin [Levaquin TAB] 500 mg PO QDAY 7 Days #7 tablet 09/27/17 Unknown Rx predniSONE [Deltasone] 50 mg PO QDAY 3 Days #3 tab 09/27/17 Unknown Rx Butalb/Acetaminophen/Caffeine 1 cap PO Q8HR PRN #20 cap 10/08/17 Unknown Rx [Fioricet 50-300-40 mg CAP] ED Physical Exam - General Limitations: No Limitations General appearance: alert, in no apparent distress (speaks normally, easily, conversant, without apparent distress and demeanor or movements) - Head Head exam: Present: atraumatic, normocephalic, other (no occipital or frontal tenderness) - Eye Eye exam: Present: normal appearance, PERRL, EOMI - ENT ENT exam: Present: other (moderate bilateral frontal tenderness on palpation, no edema, erythema or puffiness) - Neck Neck exam: Present: normal inspection, full ROM. Absent: tenderness, meningismus - Respiratory Respiratory exam: Present: normal lung sounds bilaterally. Absent: wheezes - Cardiovascular Cardiovascular Exam: Present: regular rate, normal heart sounds - GI/Abdominal GI/Abdominal exam: Present: soft, normal bowel sounds. Absent: distended, tenderness - Rectal Rectal exam: Present: deferred - Extremities Exam Extremities exam: Present: normal inspection, full ROM. Absent: tenderness - Neurological Exam Neurological exam: Present: alert, oriented X3, CN II-XII intact. Absent: motor sensory deficit - Psychiatric Psychiatric exam: Present: normal affect, normal mood - Skin Skin exam: Present: warm, dry, intact. Absent: petechiae, pallor, ecchymosis ED Course Vital Signs 10/08/17 10/08/17 10/08/17 05:39 09:43 10:20 Temperature 36.8 C 37.1 C Pulse Rate 76 71 Respiratory 16 16 16 Rate Blood Pressure 138/82 Blood Pressure 128/69 [Left] O2 Sat by Pulse 96 99 100 Oximetry 10/08/17 12:07 Temperature Pulse Rate Respiratory 16 Rate Blood Pressure Blood Pressure [Left] O2 Sat by Pulse Oximetry - Reevaluation(s) Reevaluation #1: 10/08/17 12:39 Resting comfortably, voices improvement in headache after injection with haloperidol, dexamethasone and ketorolac. Neurologically intact, comfortable, and is stable for discharge. ED Medical Decision Making - Medical Decision Making This patient has recurrent headaches, which have been well characterized, having repeated examinations with normal neurologic findings, and negative recent CT scan of the brain for intracranial abnormality on 09/18/2017, but with incidental finding of a symptomatically mastoiditis, which was treated at prior visit with Levaquin. She is stable today, neurologically intact, without fever, with recurrence of typical headache, although with increasing frequency over the past several weeks. Patient was treated with intramuscular haloperidol , dexamethasone, and ketorolac. She will be discharged on Fioricet and to follow with previously arranged follow-up with neurologist and primary care physician - Differential Diagnosis headache, sinusitis, migraine, intracranial hemorrhage Critical Care Time: No Critical care attestation.: If time is entered above; I have spent that time in minutes in the direct care of this critically ill patient, excluding procedure time. ED Disposition Clinical Impression: Frontal headache Headache Qualifiers: Headache type: unspecified Headache chronicity pattern: chronic headache Intractability: not intractable Qualified Code(s): R51 - Headache Disposition: DC-01 TO HOME OR SELFCARE Is pt being admited?: No Does the pt Need Aspirin: No Condition: Stable Instructions: Acute Headache (ED) Prescriptions: Butalb/Acetaminophen/Caffeine [Fioricet 50-300-40 mg CAP] 1 cap PO Q8HR PRN #20 cap PRN Reason: Headache Referrals: PRIMARY CARE, [Primary Care Provider] - 3-5 Days Time of Disposition: 12:40
[2017-10-08 12:53] VITALS: BP 129/72
== END 2017-10-08 12:51 | disposition home or self-care (01) ==
LOC: ED 05:32
DX: R51 Headache (principal); I10 Essential (primary) hypertension; K21.9 Gastro-esophageal reflux disease without esophagitis; M19.90 Unspecified osteoarthritis, unspecified site; J44.9 Chronic obstructive pulmonary disease, unspecified; F41.9 Anxiety disorder, unspecified; F17.200 Nicotine dependence, unspecified, uncomplicated
CPT/HCPCS: 96372; 99282; J1100; J1630; J1885

== ENCOUNTER 2017-10-09 04:20 | Emergency (ER) | payer MEDICARE ==
[2017-10-09 05:26] LABS: Basophils % (Auto) 0.2 % (0.0-1.8); Eosinophils % (Auto) 0.1 % (0.0-4.3); Hematocrit 40.9 % (30.3-42.9); Hemoglobin 13.8 gm/dl (10.1-14.3); Lymphocytes # (Auto) 1.6 K/mm3 (1.2-5.4); Lymphocytes % (Auto) 13.1 % (13.4-35.0); Mean Corpuscular HGB Conc 34 % (30-34); Mean Corpuscular Hemoglobin 33 pg (28-32); Mean Corpuscular Volume 99 fl (79-97); Monocytes # (Auto) 0.8 K/mm3 (0.0-0.8); Monocytes % (Auto) 6.5 % (0.0-7.3); Platelet Count 219 K/mm3 (140-440); Red Blood Count 4.15 M/mm3 (3.65-5.03); Red Cell Distribution Width 16.2 % (13.2-15.2)
[2017-10-09 05:52] LABS: Creatine Kinase MB 6.3 ng/mL (0.0-4.0)
[2017-10-09 05:55] LABS: BUN/Creatinine Ratio 52; Blood Urea Nitrogen 26 mg/dL (7-17); Calcium 9.6 mg/dL (8.4-10.2); Hemolysis Index 11
--- NOTE | 2017-10-09 06:12 | Emergency Department Report ---
ED Chest Pain HPI - General Chief Complaint: Chest Pain Stated Complaint: CHEST PAIN Time Seen by Provider: 10/09/17 06:08 Source: patient Mode of arrival: Ambulatory Limitations: No Limitations - History of Present Illness Initial Comments: This is a 67 year old female states that she is compliant with her HIV medicines. She states that her viral load is very low. She does not know her CD4 count. I don't think she has had an AIDS defining infection in the past. She has been here recently for a workup of left-sided chest pain. She states that today she came for right-sided chest pain which was very similar. She describes a sharp chest pain which was intermittent over an hour in the right upper chest which did not radiate or penetrate. It was not associated with any other symptoms. Her cardiac workup was negative last month. She has no history of DVT or PE. She has no complaint of leg pain or swelling. She's had no recent travel. She denies cough fever or chills. She states that she lives in a skilled nursing. Additionally the patient appears to be coming to the hospital and increased frequency. She was seen yesterday for a "migraine headache". She does not complain of any headache at this time nor after she left yesterday. She stated that her symptoms for between 3 and 4:00 last night and that she was discharged around 10 PM. MD Complaint: chest pain -: minutes(s) Onset: during rest Pain Location: right chest Pain Radiation: none Severity: moderate Quality: sharp Consistency: now resolved Improves With: nothing Worsens With: nothing re: other (no associated symptoms) Other Symptoms: other (none) Treatments Prior to Arrival: none Aspirin use within the Past 7 Days: (0) No - Related Data On Oral Contraceptives: No Previous Rx's Medication Instructions Recorded Last Taken Type ALBUTEROL Inhaler [ProAir HFA 2 puff IH QID PRN #1 inhalation 07/28/17 Unknown Rx Inhaler] Pantoprazole [Protonix TAB] 20 mg PO DAILY #30 tablet. 08/29/17 Unknown Rx Ondansetron [Zofran Odt] 4 mg PO Q8HR PRN #10 tab.rapdis 09/19/17 Unknown Rx methylPREDNISolone [Medrol Dose 4 mg PO DAILY 6 Days #1 tab.ds.pk 09/19/17 Unknown Rx Obey] Cetirizine HCl [ZyrTEC] 10 mg PO QDAY 21 Days #21 09/27/17 Unknown Rx tab.rapdis Fluticasone [Flonase] 1 spray NS QDAY 14 Days #1 bottle 09/27/17 Unknown Rx levoFLOXacin [Levaquin TAB] 500 mg PO QDAY 7 Days #7 tablet 09/27/17 Unknown Rx predniSONE [Deltasone] 50 mg PO QDAY 3 Days #3 tab 09/27/17 Unknown Rx Butalb/Acetaminophen/Caffeine 1 cap PO Q8HR PRN #10 cap 10/09/17 Unknown Rx [Fioricet 50-300-40 mg CAP] Allergies Allergy/AdvReac Type Severity Reaction Status Date / Time amoxicillin [From Augmentin] Allergy Unknown Verified 09/27/17 16:42 clavulanic acid Allergy Unknown Verified 09/27/17 16:42 [From Augmentin] gentamicin Allergy Unknown Verified 09/27/17 16:42 Heart Score - HEART Score History: Slightly suspicious EKG: Normal Age: > 65 Risk factors: No known risk factors Troponin: < normal limit HEART Score: 2 - Critical Actions Critical Actions: 0-3 pts:0.9-1.7%risk of adverse cardiac event.Candidate for discharge ED Review of Systems ROS: Stated complaint: CHEST PAIN Other details as noted in HPI Constitutional: denies: chills, fever Eyes: denies: eye pain, eye discharge, vision change ENT: denies: ear pain, throat pain Respiratory: denies: cough, shortness of breath, wheezing Cardiovascular: chest pain. denies: palpitations Endocrine: no symptoms reported Gastrointestinal: denies: abdominal pain, nausea, diarrhea Genitourinary: denies: urgency, dysuria, discharge Musculoskeletal: denies: back pain, joint swelling, arthralgia Skin: denies: rash, lesions Neurological: denies: headache, weakness, paresthesias Psychiatric: denies: anxiety, depression Hematological/Lymphatic: denies: easy bleeding, easy bruising ED Past Medical Hx - Past Medical History Hx Hypertension: Yes Hx GERD: Yes Hx Arthritis: Yes Hx Psychiatric Treatment: Yes (depression) Hx COPD: Yes Hx HIV: Yes Additional medical history: sleep apnea - Surgical History Additional Surgical History: tonsilectomy, hysterectomy - Social History Smoking Status: Former Smoker - Medications Home Medications: Home Medications Medication Instructions Recorded Confirmed Last Taken Type ALBUTEROL Inhaler [ProAir HFA 2 puff IH QID PRN #1 inhalation 07/28/17 Unknown Rx Inhaler] Pantoprazole [Protonix TAB] 20 mg PO DAILY #30 tablet.dr 08/29/17 Unknown Rx Ondansetron [Zofran Odt] 4 mg PO Q8HR PRN #10 tab.rapdis 09/19/17 Unknown Rx methylPREDNISolone [Medrol Dose 4 mg PO DAILY 6 Days #1 tab.ds.pk 09/19/17 Unknown Rx Obey] Cetirizine HCl [ZyrTEC] 10 mg PO QDAY 21 Days #21 09/27/17 Unknown Rx tab.rapdis Fluticasone [Flonase] 1 spray NS QDAY 14 Days #1 bottle 09/27/17 Unknown Rx levoFLOXacin [Levaquin TAB] 500 mg PO QDAY 7 Days #7 tablet 09/27/17 Unknown Rx predniSONE [Deltasone] 50 mg PO QDAY 3 Days #3 tab 09/27/17 Unknown Rx Butalb/Acetaminophen/Caffeine 1 cap PO Q8HR PRN #10 cap 10/09/17 Unknown Rx [Fioricet 50-300-40 mg CAP] ED Physical Exam - General Limitations: No Limitations General appearance: alert, in no apparent distress - Head Head exam: Present: atraumatic, normocephalic - Eye Eye exam: Present: normal appearance. Absent: scleral icterus - ENT ENT exam: Present: mucous membranes moist - Neck Neck exam: Present: normal inspection - Respiratory Respiratory exam: Present: normal lung sounds bilaterally, chest wall tenderness. Absent: respiratory distress - Cardiovascular Cardiovascular Exam: Present: regular rate, normal rhythm. Absent: systolic murmur, diastolic murmur, rubs, gallop - GI/Abdominal GI/Abdominal exam: Present: soft, normal bowel sounds. Absent: distended, tenderness, guarding, rebound, rigid - Extremities Exam Extremities exam: Present: normal inspection, normal capillary refill. Absent: tenderness, pedal edema, joint swelling, calf tenderness - Back Exam Back exam: Present: normal inspection. Absent: CVA tenderness (R), CVA tenderness (L), muscle spasm, paraspinal tenderness, vertebral tenderness - Neurological Exam Neurological exam: Present: alert, oriented X3, CN II-XII intact. Absent: motor sensory deficit - Psychiatric Psychiatric exam: Present: normal affect, normal mood - Skin Skin exam: Present: warm, dry, intact, normal color. Absent: rash ED Course Vital Signs 10/09/17 10/09/17 04:36 07:27 Temperature 98 F Pulse Rate 65 66 Respiratory 16 Rate Blood Pressure 144/82 Blood Pressure 147/75 [Left] O2 Sat by Pulse 99 98 Oximetry - Reevaluation(s) Reevaluation #1: The patient rested comfortably. She states that she lost her prescription from yesterday which was Fioricet I presume. She had no recurrent chest pain at all. She asked for something to eat. She was found to have chest wall tenderness. Her d-dimer was negative. I do not see a benefit of hospitalization. I compared her chest x-ray to previous and there was no interval change. Arterial blood gas showed some respiratory alkalosis but was otherwise within reasonable limits. She is discharged in stable condition. 10/09/17 09:37 TIMMY score - Timmy Score Age > 65: (0) No Aspirin use within the Past 7 Days: (0) No 3 or more CAD Risk Factors: (0) No 2 or more Angina events in past 24 hrs: (0) No Known CAD with more than 50% Stenosis: (0) No Elevated Cardiac Markers: (0) No ST Deviation Greater than 0.5mm: (0) No TIMMY Score: 0 ED Medical Decision Making - Lab Data Result diagrams: 10/09/17 04:56 10/09/17 04:56 Laboratory Results - last 24 hr 10/09/17 10/09/17 04:56 04:56 WBC 12.5 H RBC 4.15 Hgb 13.8 Hct 40.9 MCV 99 H MCH 33 H MCHC 34 RDW 16.2 H Plt Count 219 Lymph % (Auto) 13.1 L [place] % (Auto) 6.5 Eos % (Auto) 0.1 Baso % (Auto) 0.2 Lymph # 1.6 [place] # 0.8 Eos # 0.0 Baso # 0.0 Seg Neutrophils % 80.1 H Seg Neutrophils # 10.0 H Sodium 141 Potassium 4.7 Chloride 98.1 Carbon Dioxide 31 H Anion Gap 17 BUN 26 H Creatinine 0.5 L Estimated GFR > 60 BUN/Creatinine Ratio 52 Glucose 84 Calcium 9.6 Total Creatine Kinase 225 H CK-MB (CK-2) 6.3 H CK-MB (CK-2) Rel Index 2.8 Troponin T < 0.010 - EKG Data -: EKG Interpreted by Me EKG shows normal: sinus rhythm, axis, intervals, QRS complexes, ST-T waves Rate: normal - EKG Data Interpretation: no acute changes, other (perhaps some biatrial abnormality) - Radiology Data Radiology results: report reviewed interpreted by me: Chronic changes Critical care attestation.: If time is entered above; I have spent that time in minutes in the direct care of this critically ill patient, excluding procedure time. ED Disposition Clinical Impression: Chest wall pain, HIV positive Disposition: DC- TO HOME OR SELFCARE Is pt being admited?: No Does the pt Need Aspirin: No Condition: Stable Instructions: Chest Pain (ED), Costochondritis (ED), Human Immunodeficiency Virus Infection (ED) Additional Instructions: Further evaluation with her primary care and her HIV provider is certainly recommended. Return any acute change or recurrent pain as needed. Prescriptions: Butalb/Acetaminophen/Caffeine [Fioricet 50-300-40 mg CAP] 1 cap PO Q8HR PRN #10 cap PRN Reason: Headache Referrals: PRIMARY CARE, [Primary Care Provider] - 3-5 Days usual, infectious disease clinic [Other] - 24 Hours Time of Disposition: 09:48
--- NOTE | 2017-10-09 07:21 | XRay Report ---
FINAL REPORT PROCEDURE: XR CHEST 1V AP TECHNIQUE: Chest radiograph anteroposterior view. CPT 88391 HISTORY: r sided cp COMPARISON: 09/21/2017 FINDINGS: Heart: Normal. Mediastinum/Vessels: Normal. Lungs/Pleural space: There are fibrotic changes at the left lung base. There is a small left pleural effusion. The right lung is clear and expanded.. Bony thorax: No acute osseous abnormality. Life support devices: None. IMPRESSION: Heart size is normal. Lungs are expanded.. There are fibrotic changes at the left lung base. There is a small left pleural effusion. The right lung is clear and expanded.. There is no pneumothorax.
[2017-10-09 08:10] LABS: Alanine Aminotransferase 28 units/L (7-56); Albumin 4.3 g/dL (3.9-5)
[2017-10-09 08:12] LABS: Partial Thromboplastin Time 22.7 Sec. (24.2-36.6)
[2017-10-09 08:13] LABS: INR 0.91 (0.87-1.13)
[2017-10-09 08:16] LABS: Bilirubin,Direct < 0.2 mg/dL (0-0.2)
[2017-10-09] MEDS ORDERED: NACL 0.9% 1000 ML 1,000 ML IV ONE (08:33)
[2017-10-09 10:01] VITALS: BP 151/89
== END 2017-10-09 10:28 | disposition home or self-care (01) ==
LOC: ED 04:20
DX: R07.89 Other chest pain (principal); I10 Essential (primary) hypertension; K21.9 Gastro-esophageal reflux disease without esophagitis; M19.90 Unspecified osteoarthritis, unspecified site; F32.9 Major depressive disorder, single episode, unspecified; J44.9 Chronic obstructive pulmonary disease, unspecified; Z87.891 Personal history of nicotine dependence; Z90.710 Acquired absence of both cervix and uterus; Z90.89 Acquired absence of other organs; Z88.1 Allergy status to other antibiotic agents
CPT/HCPCS: 36415; 71045; 80048; 80074; 82550; 82553; 82803; 83735; 84484; 85025; 85379; 85610; 85730; 93005; 93010; 99284; J7030

== ENCOUNTER 2017-10-16 13:25 | Emergency (ER) | payer MEDICARE ==
[2017-10-16 13:30] VITALS: BP 106/56
--- NOTE | 2017-10-16 16:04 | Emergency Department Report ---
ED Headache HPI - General Chief Complaint: Headache Stated Complaint: HEADACHE Time Seen by Provider: 10/16/17 14:47 - History of Present Illness Initial Comments: Patient is a 67-year-old female has past medical history of migraines who is presenting with headache. Patient states she has no photophobia but she does have some sound sensitivity. Patient denies any nausea or vomiting. This headache is consistent with her history of migraines. Patient has appointment to see a neurologist next week Recent Head Trauma: frequent headaches, chronic headaches Allergies/Adverse Reactions: Allergies amoxicillin [From Augmentin] Allergy (Verified 10/16/17 13:28) Unknown clavulanic acid [From Augmentin] Allergy (Verified 10/16/17 13:28) Unknown gentamicin Allergy (Verified 10/16/17 13:28) Unknown Home Medications: Ambulatory Orders ALBUTEROL Inhaler (OR & NICU) [ProAir HFA Inhaler] 2 puff IH QID PRN #1 inhalation 07/28/17 Pantoprazole [Protonix TAB] 20 mg PO DAILY #30 tablet. 08/29/17 Ondansetron [Zofran Odt] 4 mg PO Q8HR PRN #10 tab.rapdis 09/19/17 methylPREDNISolone [Medrol Dose Obey] 4 mg PO DAILY 6 Days #1 tab.ds.pk 09/19/17 Cetirizine HCl [ZyrTEC] 10 mg PO QDAY 21 Days #21 tab.rapdis 09/27/17 Fluticasone [Flonase] 1 spray NS QDAY 14 Days #1 bottle 09/27/17 levoFLOXacin [Levaquin TAB] 500 mg PO QDAY 7 Days #7 tablet 09/27/17 predniSONE [Deltasone] 50 mg PO QDAY 3 Days #3 tab 09/27/17 Butalb/Acetaminophen/Caffeine [Fioricet 50-300-40 mg CAP] 1 cap PO Q8HR PRN #10 cap 10/09/17 Butalb/Acetamin/Caff 50-325-40 [Fioricet] 1 tab PO Q6HR PRN #10 tab 10/16/17 ED Review of Systems ROS: Stated complaint: HEADACHE Other details as noted in HPI Comment: All other systems reviewed and negative ED Past Medical Hx - Past Medical History Hx Hypertension: Yes Hx GERD: Yes Hx Arthritis: Yes Hx Psychiatric Treatment: Yes (depression) Hx COPD: Yes Hx HIV: Yes Additional medical history: sleep apnea - Surgical History Additional Surgical History: tonsilectomy, hysterectomy - Social History Smoking Status: Current Some Day Smoker Substance Use Type: None - Medications Home Medications: Home Medications Medication Instructions Recorded Confirmed Last Taken Type ALBUTEROL Inhaler (OR & NICU) 2 puff IH QID PRN #1 inhalation 07/28/17 Unknown Rx [ProAir HFA Inhaler] Pantoprazole [Protonix TAB] 20 mg PO DAILY #30 tablet.dr 08/29/17 Unknown Rx Ondansetron [Zofran Odt] 4 mg PO Q8HR PRN #10 tab.rapdis 09/19/17 Unknown Rx methylPREDNISolone [Medrol Dose 4 mg PO DAILY 6 Days #1 tab.ds.pk 09/19/17 Unknown Rx Obey] Cetirizine HCl [ZyrTEC] 10 mg PO QDAY 21 Days #21 09/27/17 Unknown Rx tab.rapdis Fluticasone [Flonase] 1 spray NS QDAY 14 Days #1 bottle 09/27/17 Unknown Rx levoFLOXacin [Levaquin TAB] 500 mg PO QDAY 7 Days #7 tablet 09/27/17 Unknown Rx predniSONE [Deltasone] 50 mg PO QDAY 3 Days #3 tab 09/27/17 Unknown Rx Butalb/Acetaminophen/Caffeine 1 cap PO Q8HR PRN #10 cap 10/09/17 Unknown Rx [Fioricet 50-300-40 mg CAP] Butalb/Acetamin/Caff 50-325-40 1 tab PO Q6HR PRN #10 tab 10/16/17 Unknown Rx [Fioricet] ED Physical Exam - General Limitations: No Limitations General appearance: alert, in no apparent distress - Head Head exam: Present: atraumatic, normocephalic - Eye Eye exam: Present: normal appearance - ENT ENT exam: Present: mucous membranes moist - Neck Neck exam: Present: normal inspection - Respiratory Respiratory exam: Present: normal lung sounds bilaterally. Absent: respiratory distress, wheezes - Cardiovascular Cardiovascular Exam: Present: regular rate, normal rhythm. Absent: systolic murmur, diastolic murmur, rubs, gallop - GI/Abdominal GI/Abdominal exam: Present: soft, normal bowel sounds - Extremities Exam Extremities exam: Present: normal inspection - Back Exam Back exam: Present: normal inspection - Neurological Exam Neurological exam: Present: alert, oriented X3 - Psychiatric Psychiatric exam: Present: normal affect, normal mood - Skin Skin exam: Present: warm, dry, intact, normal color. Absent: rash ED Course Vital Signs 10/16/17 13:28 Temperature 98.2 F Pulse Rate 86 Respiratory 18 Rate Blood Pressure 106/56 O2 Sat by Pulse 96 Oximetry Critical care attestation.: If time is entered above; I have spent that time in minutes in the direct care of this critically ill patient, excluding procedure time. ED Disposition Clinical Impression: Migraine Disposition: DC-01 TO HOME OR SELFCARE Is pt being admited?: No Does the pt Need Aspirin: No Condition: Stable Instructions: Acute Headache (ED) Prescriptions: Butalb/Acetamin/Caff 50-325-40 [Fioricet] 1 tab PO Q6HR PRN #10 tab PRN Reason: Headache Referrals: PRIMARY CARE, [Primary Care Provider] - 3-5 Days
[2017-10-16] MEDS ORDERED: MOTRIN PO ONE (16:15)
[2017-10-16] MEDS ORDERED: MOTRIN ONE (16:17)
== END 2017-10-16 16:17 | disposition home or self-care (01) ==
LOC: ED 13:25
DX: G43.909 Migraine, unspecified, not intractable, without status migrainosus (principal); Z88.1 Allergy status to other antibiotic agents; Z88.8 Allergy status to other drugs, medicaments and biological substances; I10 Essential (primary) hypertension; K21.9 Gastro-esophageal reflux disease without esophagitis; M19.90 Unspecified osteoarthritis, unspecified site; J44.9 Chronic obstructive pulmonary disease, unspecified; F17.200 Nicotine dependence, unspecified, uncomplicated; G47.30 Sleep apnea, unspecified; Z90.710 Acquired absence of both cervix and uterus

== ENCOUNTER 2017-10-17 13:39 | Emergency (ER) | payer MEDICARE ==
[2017-10-17 14:00] VITALS: BP 109/58
[2017-10-17] MEDS ORDERED: MOTRIN PO ONE (14:31)
--- NOTE | 2017-10-17 14:34 | Emergency Department Report ---
Chief Complaint: Headache Stated Complaint: MIGRAINE Time Seen by Provider: 10/17/17 14:28 - HPI History of Present Illness: Patient is 67-year-old female past history of migraines who was seen here yesterday and given a prescription for Fioricet. Patient states she took the medications to the pharmacy but instead of waiting for the medication she decided to come to the emergency department if she is still having headache. Patient has no nausea vomiting Dizziness fevers chills cough, congestion at this time. - ROS Review of Systems: All other systems are reviewed and negative - Exam Vital Signs: Vital Signs 10/17/17 13:57 Temperature 98.4 F Pulse Rate 83 Respiratory 16 Rate Blood Pressure 109/58 O2 Sat by Pulse 96 Oximetry Physical Exam: She is alert and oriented 3. Patient is a distress. Neck is supple. MSE screening note: Focused history and physical exam performed. Due to findings the following was ordered: ED Medical Decision Making - Medical Decision Making Patient was instructed that she needs to get her medications filled to follow with her neurologist and the patient be discharged home. ED Disposition for MSE Clinical Impression: Headache Disposition: DC-01 TO HOME OR SELFCARE Is pt being admited?: No Does the pt Need Aspirin: No Condition: Stable
== END 2017-10-17 14:45 | disposition home or self-care (01) ==
LOC: ED 13:39
DX: G43.909 Migraine, unspecified, not intractable, without status migrainosus (principal); M19.90 Unspecified osteoarthritis, unspecified site; J44.9 Chronic obstructive pulmonary disease, unspecified; K21.9 Gastro-esophageal reflux disease without esophagitis; I10 Essential (primary) hypertension; Z90.89 Acquired absence of other organs; Z90.710 Acquired absence of both cervix and uterus
CPT/HCPCS: 99282

== ENCOUNTER 2017-10-28 10:44 | Emergency (ER) | payer MEDICARE ==
[2017-10-28] MEDS ORDERED: ATROVENT IH ONE (12:04)
[2017-10-28] MEDS ORDERED: PROVENTIL IH ONE (12:04)
[2017-10-28] MEDS ORDERED: DELTASONE PO ONE (12:05)
[2017-10-28] MEDS ORDERED: TYLENOL PO ONE (12:05)
--- NOTE | 2017-10-28 12:07 | Emergency Department Report ---
Chief Complaint: Dyspnea/Respdistress Stated Complaint: SOB Time Seen by Provider: 10/28/17 11:44 - HPI History of Present Illness: 67-year-old female presents to the emergency department via EMS from a local [employer] [facility] with complaint of some shortness of breath that started as she was walking from a court appointment she had earlier today. She says that was a long walk. She has a past medical history of COPD but is not oxygen dependent. She also has a history of acid reflux, HIV and arthritis. She tried her inhaler without any relief. She denies any chest pain, fever, nausea , vomiting, back pain. No lower extremity swelling. No recent travel, immobility or sick contacts at home. She also complains of a frontal headache that started earlier today. She does have a history of recurrent headaches and has an appointment coming up on the with a neurologist regarding this. Her primary care physician is Dr. Monica Tanner. She is a tobacco smoker. - ROS Review of Systems: Positive for shortness of breath, wheezing, headache Negative for chest pain, fever, nausea, vomiting, back pain, lower show any swelling - Exam Vital Signs: Vital Signs 10/28/17 11:08 Temperature 99.1 F Pulse Rate 87 Respiratory 18 Rate Blood Pressure 132/79 O2 Sat by Pulse 95 Oximetry Physical Exam: Mild wheezing throughout the chest but no respiratory distress. Normal heart sounds auscultation. Patient is awake and alert in no acute distress. Cranial nerves II through XII grossly intact. MSE screening note: Focused history and physical exam performed. Due to findings the following was ordered: I have ordered a CBC, BMP, troponin, EKG and 2 view x-ray of the chest. Patient will get prednisone for the spasm and Tylenol for her headache. ED Disposition for MSE Condition: Stable Referrals: PRIMARY CARE, [Primary Care Provider] - 3-5 Days
[2017-10-28 13:02] LABS: Basophils # (Auto) 0.1 K/mm3 (0.0-0.1); Basophils % (Auto) 0.8 % (0.0-1.8); Eosinophils # (Auto) 0.1 K/mm3 (0.0-0.4); Eosinophils % (Auto) 1.7 % (0.0-4.3); Hematocrit 42.2 % (30.3-42.9); Hemoglobin 14.2 gm/dl (10.1-14.3); Lymphocytes # (Auto) 3.1 K/mm3 (1.2-5.4); Lymphocytes % (Auto) 37.3 % (13.4-35.0); Mean Corpuscular HGB Conc 34 % (30-34); Mean Corpuscular Hemoglobin 34 pg (28-32); Mean Corpuscular Volume 101 fl (79-97); Monocytes # (Auto) 0.6 K/mm3 (0.0-0.8); Monocytes % (Auto) 7.1 % (0.0-7.3); Platelet Count 204 K/mm3 (140-440); Red Blood Count 4.18 M/mm3 (3.65-5.03); Red Cell Distribution Width 15.7 % (13.2-15.2)
[2017-10-28 13:24] LABS: BUN/Creatinine Ratio 38; Blood Urea Nitrogen 15 mg/dL (7-17); Calcium 9.6 mg/dL (8.4-10.2); Hemolysis Index 299
[2017-10-28] MEDS ORDERED: NACL 0.9% 1000 ML 1,000 ML IV ONE (13:44)
[2017-10-28] MEDS ORDERED: KIONEX PO ONE (13:47)
--- NOTE | 2017-10-28 14:03 | XRay Report ---
ROUTINE CHEST, TWO VIEWS: HISTORY: Dyspnea. Underlying emphysema is suspected. There is blunting the left costophrenic angle which could represent a small left pleural effusion or chronic left pleural thickening. This finding is unchanged since 10/09/17. There is minor scarring or atelectasis in the lingula, otherwise, the lungs are adequately aerated. No pneumothorax. Normal heart and mediastinal structures. IMPRESSION: Emphysema. Small left pleural effusion versus chronic pleural thickening. No overwhelming change since 10/09/17.
--- NOTE | 2017-10-28 14:04 | Emergency Department Report ---
ED Shortness of Breath HPI - General Chief Complaint: Dyspnea/Respdistress Stated Complaint: SOB Time Seen by Provider: 10/28/17 11:44 Source: patient, EMS Mode of arrival: Ambulatory Limitations: No Limitations - History of Present Illness Initial Comments: This is a 67-year-old female nontoxic, well nourished in appearance, no acute signs of distress presents to the ED with c/o of shortness of breathe. Patient stated she was walking from a court appoointment this morning and started to have wheezing and shortness of breathe. Patient stated has history of COPD but is not on oxygen dependent. Patient stated that she did take an inhaler with no relief. Patient denies any cough. Patient denies any sick contact. Patient denies any recent travels, long car, recent hospital stays. Patient denies any calf pain or calf tenderness. Patient denies any chest pain, fever, chills, nausea, vomiting, hemoptysis, numbness, tingling, or stiff neck. Patient denies any back pain. PAtient also stated has intermittent headaches x3 weeks. Patient stated headache is located in frontal scalp area. Patient denies tundercalp headache or worst headche. Patient denies any visual changes. Patient stated that this was a normal typical migraine headaches and that she takes Fioricet has been out of her medications. Patient that she does have a neurologist appointment on the of this month and sees Dr. Monica Tanner. PMH includes HIV, COPD, and HTN. MD Complaint: shortness of breath -: This morning Severity: mild Pain Scale: 3 Quality: throbbing Consistency: intermittent Improves With: nothing Worsens With: nothing Known History Of: COPD Associated Symptoms: denies other symptoms Treatments Prior to Arrival: bronchodilator - Related Data Home Oxygen Therapy: No Previous Rx's Medication Instructions Recorded Last Taken Type ALBUTEROL Inhaler (OR & NICU) 2 puff IH QID PRN #1 inhalation 07/28/17 Unknown Rx [ProAir HFA Inhaler] Pantoprazole [Protonix TAB] 20 mg PO DAILY #30 tablet. 08/29/17 Unknown Rx Ondansetron [Zofran Odt] 4 mg PO Q8HR PRN #10 tab.rapdis 09/19/17 Unknown Rx methylPREDNISolone [Medrol Dose 4 mg PO DAILY 6 Days #1 tab.ds.pk 09/19/17 Unknown Rx Obey] Cetirizine HCl [ZyrTEC] 10 mg PO QDAY 21 Days #21 09/27/17 Unknown Rx tab.rapdis Fluticasone [Flonase] 1 spray NS QDAY 14 Days #1 bottle 09/27/17 Unknown Rx levoFLOXacin [Levaquin TAB] 500 mg PO QDAY 7 Days #7 tablet 09/27/17 Unknown Rx predniSONE [Deltasone] 50 mg PO QDAY 3 Days #3 tab 09/27/17 Unknown Rx Butalb/Acetaminophen/Caffeine 1 cap PO Q8HR PRN #10 cap 10/09/17 Unknown Rx [Fioricet 50-300-40 mg CAP] Butalb/Acetamin/Caff 50-325-40 1 tab PO Q6HR PRN #10 tab 10/16/17 Unknown Rx [Fioricet] ALBUTEROL Inhaler(NF) [VENTOLIN 2 puff IH Q4-6H PRN #1 inha 10/28/17 Unknown Rx Inhaler(NF)] Butalb/Acetamin/Caff 50-325-40 1 tab PO Q6HR PRN #12 tab 10/28/17 Unknown Rx [Fioricet] Prednisone [predniSONE 10 mg 10 mg PO .TAPER #1 tab.ds.pk 10/28/17 Unknown Rx (6-Day Pack, 21 Tabs)] Allergies Allergy/AdvReac Type Severity Reaction Status Date / Time amoxicillin [From Augmentin] Allergy Unknown Verified 10/28/17 11:13 clavulanic acid Allergy Unknown Verified 10/28/17 11:13 [From Augmentin] gentamicin Allergy Unknown Verified 10/28/17 11:13 ED Review of Systems ROS: Stated complaint: SOB Other details as noted in HPI Constitutional: denies: chills, fever Eyes: denies: eye pain, eye discharge, vision change ENT: denies: ear pain, throat pain Respiratory: shortness of breath, wheezing. denies: cough Cardiovascular: denies: chest pain, palpitations Endocrine: no symptoms reported Gastrointestinal: denies: abdominal pain, nausea, diarrhea Genitourinary: denies: urgency, dysuria, discharge Musculoskeletal: denies: back pain, joint swelling, arthralgia Skin: denies: rash, lesions Neurological: headache. denies: weakness, paresthesias Psychiatric: denies: anxiety, depression Hematological/Lymphatic: denies: easy bleeding, easy bruising ED Past Medical Hx - Past Medical History Previous Medical History?: Yes Hx Hypertension: Yes Hx GERD: Yes Hx Arthritis: Yes Hx Psychiatric Treatment: Yes (depression) Hx COPD: Yes Hx HIV: Yes Additional medical history: sleep apnea - Surgical History Past Surgical History?: Yes Additional Surgical History: tonsilectomy, hysterectomy - Social History Smoking Status: Never Smoker - Medications Home Medications: Home Medications Medication Instructions Recorded Confirmed Last Taken Type ALBUTEROL Inhaler (OR & NICU) 2 puff IH QID PRN #1 inhalation 07/28/17 Unknown Rx [ProAir HFA Inhaler] Pantoprazole [Protonix TAB] 20 mg PO DAILY #30 tablet. 08/29/17 Unknown Rx Ondansetron [Zofran Odt] 4 mg PO Q8HR PRN #10 tab.rapdis 09/19/17 Unknown Rx methylPREDNISolone [Medrol Dose 4 mg PO DAILY 6 Days #1 tab.ds.pk 09/19/17 Unknown Rx Obey] Cetirizine HCl [ZyrTEC] 10 mg PO QDAY 21 Days #21 09/27/17 Unknown Rx tab.rapdis Fluticasone [Flonase] 1 spray NS QDAY 14 Days #1 bottle 09/27/17 Unknown Rx levoFLOXacin [Levaquin TAB] 500 mg PO QDAY 7 Days #7 tablet 09/27/17 Unknown Rx predniSONE [Deltasone] 50 mg PO QDAY 3 Days #3 tab 09/27/17 Unknown Rx Butalb/Acetaminophen/Caffeine 1 cap PO Q8HR PRN #10 cap 10/09/17 Unknown Rx [Fioricet 50-300-40 mg CAP] Butalb/Acetamin/Caff 50-325-40 1 tab PO Q6HR PRN #10 tab 10/16/17 Unknown Rx [Fioricet] ALBUTEROL Inhaler(NF) [VENTOLIN 2 puff IH Q4-6H PRN #1 inha 10/28/17 Unknown Rx Inhaler(NF)] Butalb/Acetamin/Caff 50-325-40 1 tab PO Q6HR PRN #12 tab 10/28/17 Unknown Rx [Fioricet] Prednisone [predniSONE 10 mg 10 mg PO .TAPER #1 tab.ds.pk 10/28/17 Unknown Rx (6-Day Pack, 21 Tabs)] ED Physical Exam - General Limitations: No Limitations General appearance: alert, in no apparent distress - Head Head exam: Present: atraumatic, normocephalic - Eye Eye exam: Present: normal appearance Pupils: Present: normal accommodation - ENT ENT exam: Present: normal exam, mucous membranes moist - Neck Neck exam: Present: normal inspection, full ROM. Absent: tenderness, meningismus, lymphadenopathy - Respiratory Respiratory exam: Present: normal lung sounds bilaterally, wheezes (bilateral upper and lower lobes). Absent: respiratory distress, rales, rhonchi, stridor, chest wall tenderness, accessory muscle use, decreased breath sounds, prolonged expiratory - Cardiovascular Cardiovascular Exam: Present: regular rate, normal rhythm, normal heart sounds. Absent: bradycardia, tachycardia, irregular rhythm, systolic murmur, diastolic murmur, rubs, gallop - GI/Abdominal GI/Abdominal exam: Present: soft, normal bowel sounds - Extremities Exam Extremities exam: Present: normal inspection, full ROM, normal capillary refill - Back Exam Back exam: Present: normal inspection, full ROM. Absent: tenderness, CVA tenderness (R), CVA tenderness (L), muscle spasm, paraspinal tenderness, vertebral tenderness, rash noted - Neurological Exam Neurological exam: Present: alert, oriented X3, CN II-XII intact, normal gait - Expanded Neurological Exam Expanded Patient oriented to: Present: person, place, time Cranial nerves: EOM's Intact: Normal, Facial Sensation: Normal Cerebellar function: Finger to Nose: Normal Upper motor neuron: Pronator Drift: Normal Sensory exam: Upper Extremity Light Touch: Normal, Upper Extremity Pin Prick: Normal, Upper Extremity Temperature: Normal, UE 2 Point Discrimination: Normal, Lower Extremity Light Touch: Normal, Lower Extremity Pin Prick: Normal, Lower Extremity Temperature: Normal, LE 2 Point Discrimination: Normal Motor strength exam: RUE: 5, LUE: 5, RLE: 5, LLE: 5 Best Eye Response (Shiva): (4) open spontaneously Best Motor Response (Shiva): (6) obeys commands Best Verbal Response (Shiva): (5) oriented [place] Total: 15 - Psychiatric Psychiatric exam: Present: normal affect, normal mood - Skin Skin exam: Present: warm, dry, intact, normal color. Absent: rash ED Course Vital Signs 10/28/17 10/28/17 11:08 12:17 Temperature 99.1 F Pulse Rate 87 Respiratory 18 20 Rate Blood Pressure 132/79 O2 Sat by Pulse 95 Oximetry - Reevaluation(s) Reevaluation #1: 10/28/17 14:05 Patient is speaking in full sentences with no signs of distress noted. - Consultations Consultation #1: 10/28/17 14:05 Patient has been consulted with Angel Malin about patient history, physical exam, and labs/xray and examined and screened patient and agrees to ED plan of care and discharge plan of care. ED Medical Decision Making - Lab Data Result diagrams: 10/28/17 12:47 10/28/17 12:47 - Medical Decision Making This is a 67-year-old female that presents with headache and COPD exacerbation and hyperkalemia. Patient is stable and was examined by me. Chest x-ray has been obtained and dictated by the radiologist within normal limits. Patient is notified of the x-ray report with no questions noted by the patient. Patient did receive breathing treatment and steroids in the ED which patient the symptoms has resolved and subsided. Posttreatment and there is no wheezing upon auscultation. Patient also received 1 L normal saline, Tylenol, and Kayexalate. Labs unremarkable. EKG normal sinus rhythm with no ST abnormalities. Patient stated that headache has subsided and resolved. Patient is neurologically stable. Patient is discharged with albuterol and prednisone. Patient was referred to Follow-up with a primary care doctor in 3- 5 days or if symptoms worsen and continue return to emergency room as soon as possible. At time of discharge, the patient does not seem toxic or ill in appearance. No acute signs of distress noted. Patient agrees to discharge treatment plan of care. No further questions noted by the patient. This chart is dictated with using [employer] Critical care attestation.: If time is entered above; I have spent that time in minutes in the direct care of this critically ill patient, excluding procedure time. ED Disposition Clinical Impression: Hyperkalemia, Dehydration, COPD exacerbation Headache Qualifiers: Headache type: unspecified Headache chronicity pattern: episodic headache Intractability: not intractable Qualified Code(s): R51 - Headache Disposition: DC-01 TO HOME OR SELFCARE Is pt being admited?: No Does the pt Need Aspirin: No Condition: Stable Instructions: Chronic Obstructive Pulmonary Disease (ED), Acute Headache (ED), Butalbital/Aspirin/Caffeine (By mouth) Additional Instructions: Follow-up with a primary care doctor in 3-5 days or if symptoms worsen and continue return to emergency room as soon as possible. Prescriptions: ALBUTEROL Inhaler(NF) [VENTOLIN Inhaler(NF)] 2 puff IH Q4-6H PRN #1 inha PRN Reason: shortness of breathe Butalb/Acetamin/Caff 50-325-40 [Fioricet] 1 tab PO Q6HR PRN #12 tab PRN Reason: Headache Prednisone [predniSONE 10 mg (6-Day Pack, 21 Tabs)] 10 mg PO .TAPER #1 tab.ds.pk Referrals: PRIMARY CARE, [Primary Care Provider] - 3-5 Days BRIGIDO KRISHNAMURTHY MD [Staff Physician] - 3-5 Days [facility] [place] [Outside] - 3-5 Days [facility] [Outside] - 3-5 Days Forms: Work/School Release Form(ED)
[2017-10-28 16:27] VITALS: BP 127/53
== END 2017-10-28 16:32 | disposition home or self-care (01) ==
LOC: ED 10:44
DX: E87.5 Hyperkalemia (principal); E86.0 Dehydration; J44.1 Chronic obstructive pulmonary disease with (acute) exacerbation; R51 Headache; I10 Essential (primary) hypertension; K21.9 Gastro-esophageal reflux disease without esophagitis; M19.90 Unspecified osteoarthritis, unspecified site; Z90.710 Acquired absence of both cervix and uterus; Z90.89 Acquired absence of other organs; Z88.1 Allergy status to other antibiotic agents; Z88.8 Allergy status to other drugs, medicaments and biological substances
CPT/HCPCS: 36415; 71046; 80048; 84484; 85025; 93005; 93010; 94640; 96360; 99284; J7030; J7512

== ENCOUNTER 2017-10-31 04:48 | Emergency (ER) | payer MEDICARE ==
[2017-10-31] MEDS ORDERED: ASPIRIN PO ONE (06:09)
[2017-10-31 06:32] LABS: Basophils # (Auto) 0.1 K/mm3 (0.0-0.1); Basophils % (Auto) 1.1 % (0.0-1.8); Eosinophils # (Auto) 0.1 K/mm3 (0.0-0.4); Eosinophils % (Auto) 0.7 % (0.0-4.3); Hemoglobin 13.1 gm/dl (10.1-14.3); Lymphocytes # (Auto) 3.3 K/mm3 (1.2-5.4); Lymphocytes % (Auto) 32.3 % (13.4-35.0); Mean Corpuscular HGB Conc 34 % (30-34); Mean Corpuscular Hemoglobin 34 pg (28-32); Mean Corpuscular Volume 100 fl (79-97); Monocytes # (Auto) 1.2 K/mm3 (0.0-0.8); Monocytes % (Auto) 12.2 % (0.0-7.3); Platelet Count 252 K/mm3 (140-440); Red Blood Count 3.89 M/mm3 (3.65-5.03); Red Cell Distribution Width 15.5 % (13.2-15.2)
--- NOTE | 2017-10-31 06:44 | XRay Report ---
FINAL REPORT EXAM: XR CHEST ROUTINE 2V HISTORY: Shortness of breath TECHNIQUE: PA and lateral chest radiographs PRIORS: 10/09/2017, 12/21/2016 FINDINGS: No mediastinal shift. Cardiac silhouette is not enlarged. Hyperaeration of the lungs. Chronic blunting of the left costophrenic angle. No pneumothorax or focal airspace disease. No acute skeletal finding. IMPRESSION: No acute pulmonary finding. Chronic blunting of the left costophrenic angle is unchanged from prior.
[2017-10-31 06:49] LABS: BUN/Creatinine Ratio 52; Blood Urea Nitrogen 26 mg/dL (7-17); Calcium 9.1 mg/dL (8.4-10.2); Hemolysis Index 7
[2017-10-31] MEDS ORDERED: FIORICET PO ONE (10:38)
[2017-10-31] MEDS ORDERED: ZOFRAN ODT PO ONE (10:38)
--- NOTE | 2017-10-31 10:38 | Emergency Department Report ---
ED General Adult HPI - General Chief complaint: Dyspnea/Respdistress Stated complaint: PEDRO Time Seen by Provider: 10/31/17 10:25 Source: patient, EMS Mode of arrival: Ambulatory Limitations: No Limitations - History of Present Illness Initial comments: Patient is a 67-year-old female past history of migraines COPD with frequent visitor to emergency department who is coming in because of headaches. Patient's been seen for headaches over the past several weeks here but has not seen a neurologist yet. Patient states headache is 10 and associated with some nausea and light sensirtivity. Patient usually takes Fioricet but is unable unable to get her prescription filled. Patient was given a prescription for Fioricet by me approximately 2 weeks ago. Patient also states that she vomited once before arrival. Patient states that she has some very mild shortness of breath at baseline secondary COPD but has not been having a productive cough. - Related Data Previous Rx's Medication Instructions Recorded Last Taken Type ALBUTEROL Inhaler (OR & NICU) 2 puff IH QID PRN #1 inhalation 07/28/17 Unknown Rx [ProAir HFA Inhaler] Pantoprazole [Protonix TAB] 20 mg PO DAILY #30 tablet.dr 08/29/17 Unknown Rx Ondansetron [Zofran Odt] 4 mg PO Q8HR PRN #10 tab.rapdis 09/19/17 Unknown Rx methylPREDNISolone [Medrol Dose 4 mg PO DAILY 6 Days #1 tab.ds.pk 09/19/17 Unknown Rx Obey] Cetirizine HCl [ZyrTEC] 10 mg PO QDAY 21 Days #21 09/27/17 Unknown Rx tab.rapdis Fluticasone [Flonase] 1 spray NS QDAY 14 Days #1 bottle 09/27/17 Unknown Rx levoFLOXacin [Levaquin TAB] 500 mg PO QDAY 7 Days #7 tablet 09/27/17 Unknown Rx predniSONE [Deltasone] 50 mg PO QDAY 3 Days #3 tab 09/27/17 Unknown Rx Butalb/Acetaminophen/Caffeine 1 cap PO Q8HR PRN #10 cap 10/09/17 Unknown Rx [Fioricet 50-300-40 mg CAP] Butalb/Acetamin/Caff 50-325-40 1 tab PO Q6HR PRN #10 tab 10/16/17 Unknown Rx [Fioricet] ALBUTEROL Inhaler(NF) [VENTOLIN 2 puff IH Q4-6H PRN #1 inha 10/28/17 Unknown Rx Inhaler(NF)] Butalb/Acetamin/Caff 50-325-40 1 tab PO Q6HR PRN #12 tab 10/28/17 Unknown Rx [Fioricet] Prednisone [predniSONE 10 mg 10 mg PO .TAPER #1 tab.ds.pk 10/28/17 Unknown Rx (6-Day Pack, 21 Tabs)] Allergies Allergy/AdvReac Type Severity Reaction Status Date / Time amoxicillin [From Augmentin] Allergy Unknown Verified 10/28/17 11:13 clavulanic acid Allergy Unknown Verified 10/28/17 11:13 [From Augmentin] gentamicin Allergy Unknown Verified 10/28/17 11:13 ED Review of Systems ROS: Stated complaint: PEDRO Other details as noted in HPI Comment: All other systems reviewed and negative ED Past Medical Hx - Past Medical History Previous Medical History?: Yes Hx Hypertension: Yes Hx GERD: Yes Hx Arthritis: Yes Hx Psychiatric Treatment: Yes (depression) Hx COPD: Yes Hx HIV: Yes Additional medical history: sleep apnea - Surgical History Past Surgical History?: Yes Additional Surgical History: tonsilectomy, hysterectomy, Broken right arm - Social History Smoking Status: Current Every Day Smoker - Medications Home Medications: Home Medications Medication Instructions Recorded Confirmed Last Taken Type ALBUTEROL Inhaler (OR & NICU) 2 puff IH QID PRN #1 inhalation 07/28/17 Unknown Rx [ProAir HFA Inhaler] Pantoprazole [Protonix TAB] 20 mg PO DAILY #30 tablet. 08/29/17 Unknown Rx Ondansetron [Zofran Odt] 4 mg PO Q8HR PRN #10 tab.rapdis 09/19/17 Unknown Rx methylPREDNISolone [Medrol Dose 4 mg PO DAILY 6 Days #1 tab.ds.pk 09/19/17 Unknown Rx Obey] Cetirizine HCl [ZyrTEC] 10 mg PO QDAY 21 Days #21 09/27/17 Unknown Rx tab.rapdis Fluticasone [Flonase] 1 spray NS QDAY 14 Days #1 bottle 09/27/17 Unknown Rx levoFLOXacin [Levaquin TAB] 500 mg PO QDAY 7 Days #7 tablet 09/27/17 Unknown Rx predniSONE [Deltasone] 50 mg PO QDAY 3 Days #3 tab 09/27/17 Unknown Rx Butalb/Acetaminophen/Caffeine 1 cap PO Q8HR PRN #10 cap 10/09/17 Unknown Rx [Fioricet 50-300-40 mg CAP] Butalb/Acetamin/Caff 50-325-40 1 tab PO Q6HR PRN #10 tab 10/16/17 Unknown Rx [Fioricet] ALBUTEROL Inhaler(NF) [VENTOLIN 2 puff IH Q4-6H PRN #1 inha 10/28/17 Unknown Rx Inhaler(NF)] Butalb/Acetamin/Caff 50-325-40 1 tab PO Q6HR PRN #12 tab 10/28/17 Unknown Rx [Fioricet] Prednisone [predniSONE 10 mg 10 mg PO .TAPER #1 tab.ds.pk 10/28/17 Unknown Rx (6-Day Pack, 21 Tabs)] ED Physical Exam - General Limitations: No Limitations General appearance: alert, in no apparent distress - Head Head exam: Present: atraumatic, normocephalic - Eye Eye exam: Present: normal appearance - ENT ENT exam: Present: mucous membranes moist - Neck Neck exam: Present: normal inspection - Respiratory Respiratory exam: Present: normal lung sounds bilaterally. Absent: respiratory distress, wheezes, rales, rhonchi - Cardiovascular Cardiovascular Exam: Present: regular rate, normal rhythm. Absent: systolic murmur, diastolic murmur, rubs, gallop - GI/Abdominal GI/Abdominal exam: Present: soft, normal bowel sounds. Absent: distended, tenderness, guarding, rebound - Extremities Exam Extremities exam: Present: normal inspection - Back Exam Back exam: Present: normal inspection - Neurological Exam Neurological exam: Present: alert, oriented X3 - Psychiatric Psychiatric exam: Present: normal affect, normal mood - Skin Skin exam: Present: warm, dry, intact, normal color. Absent: rash ED Course Vital Signs 10/31/17 05:49 Temperature 98.9 F Pulse Rate 84 Respiratory 14 Rate Blood Pressure 117/72 O2 Sat by Pulse 96 Oximetry ED Medical Decision Making - Lab Data Result diagrams: 10/31/17 06:10 10/31/17 06:10 - EKG Data -: EKG Interpreted by [facility] EKG shows normal: sinus rhythm, axis, intervals, QRS complexes, ST-T waves Rate: normal - EKG Data Interpretation: normal EKG - Medical Decision Making Patient was given a Fioricet will be discharged home Critical care attestation.: If time is entered above; I have spent that time in minutes in the direct care of this critically ill patient, excluding procedure time. ED Disposition Clinical Impression: Migraine headache Qualifiers: Migraine type: unspecified Status migrainosus presence: without status migrainosus Intractability: not intractable Qualified Code(s): G43.909 - Migraine, unspecified, not intractable, without status migrainosus Disposition: DC-01 TO HOME OR SELFCARE Is pt being admited?: No Does the pt Need Aspirin: No Condition: Stable Instructions: Migraine Headache (ED) Referrals: PRIMARY CARE, [Primary Care Provider] - 3-5 Days Time of Disposition: 10:37
[2017-10-31 10:50] VITALS: BP 127/68
== END 2017-10-31 10:49 | disposition home or self-care (01) ==
LOC: ED 04:48
DX: G43.909 Migraine, unspecified, not intractable, without status migrainosus (principal); I10 Essential (primary) hypertension; K21.9 Gastro-esophageal reflux disease without esophagitis; M19.90 Unspecified osteoarthritis, unspecified site; F32.9 Major depressive disorder, single episode, unspecified; J44.9 Chronic obstructive pulmonary disease, unspecified; F17.200 Nicotine dependence, unspecified, uncomplicated; Z90.89 Acquired absence of other organs
CPT/HCPCS: 36415; 71046; 80048; 84484; 85025; 93005; 93010; Q0162

== ENCOUNTER 2017-11-03 10:38 | Emergency (ER) | payer MEDICARE ==
[2017-11-03 11:03] VITALS: BP 111/61
[2017-11-03] MEDS ORDERED: DELTASONE PO ONE (14:37)
[2017-11-03] MEDS ORDERED: FIORICET PO ONE (14:37)
--- NOTE | 2017-11-03 14:37 | Emergency Department Report ---
ED Headache HPI - General Chief Complaint: Headache Stated Complaint: MIGRANES Time Seen by Provider: 11/03/17 14:15 Source: patient, family Exam Limitations: no limitations - History of Present Illness Initial Comments: This is a 67-year-old female here point that she has a history of migraine headache and she was diagnosed at [facility]. She says that she has an appointment today to see a neurologist at [facility] associated when she got there they told her that the appointment was canceled. She said her neurologist is Dr. Moreira. She also reports that she saw her primary care yesterday for follow-up visit. Patient was here on 10/28/2017 for headache and was sent home on Fioricet and prednisone. She reports headache is the front of her head , 10 and it is throbbing pain. Denies any nausea or vomiting. Denies any dizziness or blurred vision. Pain is constant. Denies any fever or chills. Denies any neck pain or stiffness. Denies any sinus problems. Denies neck pain or stiffness. Timing/Duration: constant, waxing and waning Quality: severe, throbbing Head Injury Location: frontal Recent Head Trauma: chronic headaches Modifying Factors: improves with: movement Associated Symptoms: denies: confusion, fatigue, facial pain, fever/chills, flushing, loss of consciousness, nausea/vomiting, nasal congestion, nasal drainage, numbness in legs/feet, rash, seizures, sinus infection, stiff neck, vision changes, weakness Allergies/Adverse Reactions: Allergies amoxicillin [From Augmentin] Allergy (Verified 10/28/17 11:13) Unknown clavulanic acid [From Augmentin] Allergy (Verified 10/28/17 11:13) Unknown gentamicin Allergy (Verified 10/28/17 11:13) Unknown Home Medications: Ambulatory Orders ALBUTEROL Inhaler (OR & NICU) [ProAir HFA Inhaler] 2 puff IH QID PRN #1 inhalation 07/28/17 Pantoprazole [Protonix TAB] 20 mg PO DAILY #30 tablet. 08/29/17 Ondansetron [Zofran Odt] 4 mg PO Q8HR PRN #10 tab.rapdis 09/19/17 methylPREDNISolone [Medrol Dose Obey] 4 mg PO DAILY 6 Days #1 tab.ds.pk 08/05/18 Cetirizine HCl [ZyrTEC] 10 mg PO QDAY 21 Days #21 tab.rapdis 09/27/17 Fluticasone [Flonase] 1 spray NS QDAY 14 Days #1 bottle 09/27/17 levoFLOXacin [Levaquin TAB] 500 mg PO QDAY 7 Days #7 tablet 09/27/17 predniSONE [Deltasone] 50 mg PO QDAY 3 Days #3 tab 09/27/17 Butalb/Acetaminophen/Caffeine [Fioricet 50-300-40 mg CAP] 1 cap PO Q8HR PRN #10 cap 10/09/17 Butalb/Acetamin/Caff 50-325-40 [Fioricet] 1 tab PO Q6HR PRN #10 tab 10/16/17 ALBUTEROL Inhaler(NF) [VENTOLIN Inhaler(NF)] 2 puff IH Q4-6H PRN #1 inha Prednisone [predniSONE 10 mg (6-Day Pack, 21 Tabs)] 10 mg PO .TAPER #1 tab.ds.pk 10/28/17 Butalb/Acetamin/Caff 50-325-40 [Fioricet] 1 tab PO Q6HR PRN #12 tab 11/03/17 ED Review of Systems ROS: Stated complaint: MIGRANES Other details as noted in HPI Constitutional: denies: chills, fever Eyes: denies: eye pain, eye discharge, vision change ENT: denies: ear pain, throat pain, congestion Respiratory: denies: cough, shortness of breath, SOB with exertion, SOB at rest , stridor, wheezing Cardiovascular: denies: chest pain, palpitations, edema, syncope Gastrointestinal: denies: nausea, vomiting, diarrhea Genitourinary: denies: discharge Musculoskeletal: denies: back pain, joint swelling, arthralgia, myalgia Skin: denies: rash, lesions Neurological: headache. denies: weakness, numbness, paresthesias, confusion, abnormal gait, vertigo Psychiatric: denies: anxiety, depression ED Past Medical Hx - Past Medical History Previous Medical History?: Yes Hx Hypertension: Yes Hx GERD: Yes Hx Arthritis: Yes Hx Psychiatric Treatment: Yes (depression) Hx COPD: Yes Hx HIV: Yes Additional medical history: sleep apnea - Surgical History Past Surgical History?: Yes Additional Surgical History: tonsilectomy, hysterectomy, Broken right arm - Family History Family history: hypertension - Social History Smoking Status: Current Every Day Smoker Substance Use Type: None - Medications Home Medications: Home Medications Medication Instructions Recorded Confirmed Last Taken Type ALBUTEROL Inhaler (OR & NICU) 2 puff IH QID PRN #1 inhalation 07/28/17 Unknown Rx [ProAir HFA Inhaler] Pantoprazole [Protonix TAB] 20 mg PO DAILY #30 tablet.dr 08/29/17 Unknown Rx Ondansetron [Zofran Odt] 4 mg PO Q8HR PRN #10 tab.rapdis 09/19/17 Unknown Rx methylPREDNISolone [Medrol Dose 4 mg PO DAILY 6 Days #1 tab.ds.pk 09/19/17 Unknown Rx Obey] Cetirizine HCl [ZyrTEC] 10 mg PO QDAY 21 Days #21 09/27/17 Unknown Rx tab.rapdis Fluticasone [Flonase] 1 spray NS QDAY 14 Days #1 bottle 09/27/17 Unknown Rx levoFLOXacin [Levaquin TAB] 500 mg PO QDAY 7 Days #7 tablet 09/27/17 Unknown Rx predniSONE [Deltasone] 50 mg PO QDAY 3 Days #3 tab 09/27/17 Unknown Rx Butalb/Acetaminophen/Caffeine 1 cap PO Q8HR PRN #10 cap 10/09/17 Unknown Rx [Fioricet 50-300-40 mg CAP] Butalb/Acetamin/Caff 50-325-40 1 tab PO Q6HR PRN #10 tab 10/16/17 Unknown Rx [Fioricet] ALBUTEROL Inhaler(NF) [VENTOLIN 2 puff IH Q4-6H PRN #1 inha 10/28/17 Unknown Rx Inhaler(NF)] Prednisone [predniSONE 10 mg 10 mg PO .TAPER #1 tab.ds.pk 10/28/17 Unknown Rx (6-Day Pack, 21 Tabs)] Butalb/Acetamin/Caff 50-325-40 1 tab PO Q6HR PRN #12 tab 11/03/17 Unknown Rx [Fioricet] ED Physical Exam - General Limitations: No Limitations General appearance: alert, in no apparent distress - Head Head exam: Present: atraumatic, normocephalic, normal inspection, other (normal exam) - Eye Eye exam: Present: normal appearance, PERRL, EOMI. Absent: nystagmus, periorbital swelling, periorbital tenderness Pupils: Present: normal accommodation - ENT ENT exam: Present: normal exam, normal orophraynx, mucous membranes moist - Neck Neck exam: Present: normal inspection, full ROM. Absent: tenderness, lymphadenopathy - Respiratory Respiratory exam: Present: normal lung sounds bilaterally. Absent: respiratory distress, chest wall tenderness - Cardiovascular Cardiovascular Exam: Present: regular rate, normal rhythm, normal heart sounds. Absent: systolic murmur, diastolic murmur - Extremities Exam Extremities exam: Present: normal inspection, full ROM, normal capillary refill , other (No cce. + 2 pulses in all extremities, no neurovascular compromise). Absent: tenderness, pedal edema, joint swelling, calf tenderness - Back Exam Back exam: Present: normal inspection, full ROM, other (ambulates without any difficulties). Absent: tenderness, vertebral tenderness - Neurological Exam Neurological exam: Present: alert, oriented X3, normal gait, reflexes normal. Absent: motor sensory deficit - Expanded Neurological Exam Expanded Neurological exam: Absent: innattentive, memory loss-remote event, memory loss- recent event, ataxia, receptive aphasia, expressive aphasia, total aphasia, tremor, protecting the airway Patient oriented to: Present: person, place, time Speech: Present: fluid speech Cranial nerves: EOM's Intact: Normal, Gag Reflex: Normal, Tongue Deviation: Normal, Nystagmus: Normal, Facial Sensation: Normal Cerebellar function: Romberg: Normal Upper motor neuron: Pronator Drift: Normal, Sensory Extinction: Normal Sensory exam: Upper Extremity Light Touch: Normal, Upper Extremity Temperature: Normal, UE 2 Point Discrimination: Normal, Lower Extremity Light Touch: Normal, Lower Extremity Temperature: Normal, LE 2 Point Discrimination: Normal Motor strength exam: RUE: 5, LUE: 5, RLE: 5, LLE: 5 Best Eye Response (Mayer): (4) open spontaneously Best Motor Response (Mayer): (6) obeys commands Best Verbal Response (Shiva): (5) oriented Mayer Total: 15 - Psychiatric Psychiatric exam: Present: normal affect, normal mood - Skin Skin exam: Present: warm, dry, intact, normal color. Absent: rash ED Course Vital Signs 11/03/17 11/03/17 11:00 14:51 Temperature 98.4 F Pulse Rate 83 Respiratory 16 20 Rate Blood Pressure 111/61 O2 Sat by Pulse 95 Oximetry - Reevaluation(s) Reevaluation #1: 11/03/17 15:41 She received Fioricet 2 tablets and prednisone 60 mg by mouth emergency room and she voiced relief of her headache. ED Medical Decision Making - Medical Decision Making This is a 67-year-old patient's second emergency room report that she has a history of migraine headache and she was supposed to see her neurologist this morning and her appointment was canceled. Assessment/plan 1: Migraine headache [id number] given. Facet 2 tablets mg and prednisone 60 mg by mouth emergency room for any and all send her home on Fiorocet and to follow-up with her neurologist and reschedule appointment. Patient discharged home in stable condition with prescription for Fioricet and to follow up with her neurologist in 2 days. She was understanding her vital signs are stable she is afebrile and she is neurologically intact. She said her pain is better. Discharged home with prescription for Fioricet Critical care attestation.: If time is entered above; I have spent that time in minutes in the direct care of this critically ill patient, excluding procedure time. ED Disposition Clinical Impression: Migraine headache Qualifiers: Migraine type: unspecified Status migrainosus presence: without status migrainosus Intractability: not intractable Qualified Code(s): G43.909 - Migraine, unspecified, not intractable, without status migrainosus Disposition: DC-01 TO HOME OR SELFCARE Is pt being admited?: No Does the pt Need Aspirin: No Condition: Stable Instructions: Acute Headache (ED) Additional Instructions: Please follow up U neurologist in 2 days If Symptoms worsen, return to the emergency room Prescriptions: Butalb/Acetamin/Caff 50-325-40 [Fioricet] 1 tab PO Q6HR PRN #12 tab PRN Reason: Headache Referrals: JOSIE ROBB MD [Primary Care Provider] - 11/05/17 JANETTE POOL MD [Staff Physician] - 11/05/17
== END 2017-11-03 16:01 | disposition home or self-care (01) ==
LOC: ED 10:38
DX: G43.909 Migraine, unspecified, not intractable, without status migrainosus (principal); I10 Essential (primary) hypertension; K21.9 Gastro-esophageal reflux disease without esophagitis; M19.90 Unspecified osteoarthritis, unspecified site; F32.9 Major depressive disorder, single episode, unspecified; J44.9 Chronic obstructive pulmonary disease, unspecified; Z90.89 Acquired absence of other organs; Z90.710 Acquired absence of both cervix and uterus; F17.200 Nicotine dependence, unspecified, uncomplicated; Z79.899 Other long term (current) drug therapy; Z88.1 Allergy status to other antibiotic agents; Z88.8 Allergy status to other drugs, medicaments and biological substances
CPT/HCPCS: 99282; J7512

== ENCOUNTER 2017-11-06 07:04 | Emergency (ER) | payer MEDICARE ==
[2017-11-06 07:51] VITALS: BP 136/72
--- NOTE | 2017-11-06 08:41 | XRay Report ---
FINAL REPORT EXAM: XR CHEST ROUTINE 2V HISTORY: short of breath TECHNIQUE: PA and lateral chest radiographs PRIORS: 10/31/2017 FINDINGS: No mediastinal shift. Cardiac silhouette is not enlarged. Blunting of the left costophrenic angle is unchanged from prior. No pneumothorax or focal airspace disease. IMPRESSION: Unchanged chronic blunting of the left costophrenic angle. No acute pulmonary abnormality.
[2017-11-06] MEDS ORDERED: DUONEB *Not for PRN Use IH ONE (08:51)
[2017-11-06 09:03] LABS: Hematocrit 39.9 % (30.3-42.9); Hemoglobin 13.9 gm/dl (10.1-14.3); Mean Corpuscular HGB Conc 35 % (30-34); Mean Corpuscular Hemoglobin 34 pg (28-32); Mean Corpuscular Volume 99 fl (79-97); Platelet Count 248 K/mm3 (140-440); Red Blood Count 4.03 M/mm3 (3.65-5.03); Red Cell Distribution Width 15.1 % (13.2-15.2)
--- NOTE | 2017-11-06 09:13 | Emergency Department Report ---
ED Headache HPI - General Chief Complaint: Headache Stated Complaint: H/A; SHAAN Time Seen by Provider: 11/06/17 08:23 Source: patient, old records Exam Limitations: no limitations - History of Present Illness Timing/Duration: 1 week Quality: mild Head Injury Location: frontal Recent Head Trauma: no recent headache/trauma, frequent headaches, chronic headaches Associated Symptoms: denies: denies symptoms, confusion, fatigue, facial pain, fever/chills, flushing, loss of consciousness, nausea/vomiting, nasal congestion , nasal drainage, numbness in legs/feet, rash, seizures, sinus infection, stiff neck, vision changes, weakness, other Allergies/Adverse Reactions: Allergies amoxicillin [From Augmentin] Allergy (Verified 10/28/17 11:13) Unknown clavulanic acid [From Augmentin] Allergy (Verified 10/28/17 11:13) Unknown gentamicin Allergy (Verified 10/28/17 11:13) Unknown Home Medications: Ambulatory Orders ALBUTEROL Inhaler (OR & NICU) [ProAir HFA Inhaler] 2 puff IH QID PRN #1 inhalation 07/28/17 Pantoprazole [Protonix TAB] 20 mg PO DAILY #30 tablet. 08/29/17 Cetirizine HCl [ZyrTEC] 10 mg PO QDAY 21 Days #21 tab.rapdis 09/27/17 Fluticasone [Flonase] 1 spray NS QDAY 14 Days #1 bottle 09/27/17 Butalb/Acetaminophen/Caffeine [Fioricet 50-300-40 mg CAP] 1 cap PO Q8HR PRN #10 cap 10/09/17 ALBUTEROL Inhaler(NF) [VENTOLIN Inhaler(NF)] 2 puff IH Q4-6H PRN #1 inha Butalb/Acetamin/Caff 50-325-40 [Fioricet] 1 tab PO Q6HR PRN #10 tab 11/06/17 Sulfamethoxazole/Trimethoprim [Bactrim DS TAB] 1 each PO BID #14 tablet predniSONE [Deltasone] 50 mg PO ONCE #4 tablet 11/06/17 ED Review of Systems ROS: Stated complaint: H/A; SHAAN Other details as noted in HPI Comment: All other systems reviewed and negative Constitutional: denies: chills, diaphoresis, fever Eyes: as per HPI ENT: as per HPI Respiratory: see HPI, cough, other. denies: orthopnea, shortness of breath, SOB with exertion, SOB at rest, stridor, wheezing Cardiovascular: denies: chest pain, palpitations Endocrine: denies: excessive sweating, flushing, intolerance to cold, intolerance to heat Gastrointestinal: abdominal pain, nausea. denies: as per HPI Genitourinary: denies: urgency, dysuria Musculoskeletal: denies: back pain Skin: denies: as per HPI, rash, lesions, change in color, change in hair/nails Neurological: headache. denies: weakness, numbness, paresthesias, confusion, abnormal gait, vertigo Psychiatric: denies: anxiety, depression Hematological/Lymphatic: denies: easy bleeding ED Past Medical Hx - Past Medical History Hx Hypertension: Yes Hx GERD: Yes Hx Arthritis: Yes Hx Psychiatric Treatment: Yes (depression) Hx COPD: Yes Hx HIV: Yes Additional medical history: sleep apnea - Surgical History Additional Surgical History: tonsilectomy, hysterectomy, Broken right arm - Social History Smoking Status: Current Every Day Smoker Substance Use Type: None - Medications Home Medications: Home Medications Medication Instructions Recorded Confirmed Last Taken Type ALBUTEROL Inhaler (OR & NICU) 2 puff IH QID PRN #1 inhalation 07/28/17 Unknown Rx [ProAir HFA Inhaler] Pantoprazole [Protonix TAB] 20 mg PO DAILY #30 tablet. 08/29/17 Unknown Rx Cetirizine HCl [ZyrTEC] 10 mg PO QDAY 21 Days #21 09/27/17 Unknown Rx tab.rapdis Fluticasone [Flonase] 1 spray NS QDAY 14 Days #1 bottle 09/27/17 Unknown Rx Butalb/Acetaminophen/Caffeine 1 cap PO Q8HR PRN #10 cap 10/09/17 Unknown Rx [Fioricet 50-300-40 mg CAP] ALBUTEROL Inhaler(NF) [VENTOLIN 2 puff IH Q4-6H PRN #1 inha 10/28/17 Unknown Rx Inhaler(NF)] Butalb/Acetamin/Caff 50-325-40 1 tab PO Q6HR PRN #10 tab 11/06/17 Unknown Rx [Fioricet] Sulfamethoxazole/Trimethoprim 1 each PO BID #14 tablet 11/06/17 Unknown Rx [Bactrim DS TAB] predniSONE [Deltasone] 50 mg PO ONCE #4 tablet 11/06/17 Unknown Rx ED Physical Exam - General Limitations: No Limitations General appearance: alert, in no apparent distress - Head Head exam: Present: atraumatic - Eye Eye exam: Present: PERRL, EOMI Pupils: Present: normal accommodation - ENT ENT exam: Present: normal exam, normal orophraynx, mucous membranes moist - Neck Neck exam: Present: normal inspection - Respiratory Respiratory exam: Present: wheezes - Cardiovascular Cardiovascular Exam: Present: regular rate, normal rhythm - GI/Abdominal GI/Abdominal exam: Present: soft - Rectal Rectal exam: Present: deferred - Extremities Exam Extremities exam: Present: normal inspection, full ROM - Back Exam Back exam: Present: normal inspection, full ROM - Neurological Exam Neurological exam: Present: alert, altered, oriented X3, CN II-XII intact, normal gait - Psychiatric Psychiatric exam: Present: normal affect, normal mood - Skin Skin exam: Present: warm, dry, intact, normal color ED Course Vital Signs 11/06/17 11/06/17 07:47 09:14 Temperature 98.7 F Pulse Rate 71 Pulse Rate [ 87 Posterior Bilateral Throughout] Respiratory 18 Rate Respiratory 18 Rate [Posterior Bilateral Throughout] Blood Pressure 136/72 - Reevaluation(s) Reevaluation #1: 11/06/17 09:44 DISCUSSED HIV SEEN AT [facility] 2 W AGO TAKING ANTIVIRAL COPD SMOKING COUGH NO FEVER NON TOXIC NON ILL XRAY NOTED AND NOT CHANGED WBC N MIGRAINE HX' SAME HER PREVIOUS NEURO INTACT DISCUSSED W DR AWAN MEDICATED W RELIEF DC HOME ED Medical Decision Making - Lab Data Result diagrams: 11/06/17 08:37 11/06/17 08:37 - Radiology Data Radiology results: report reviewed, image reviewed - Differential Diagnosis PNA V COPD AE Critical care attestation.: If time is entered above; I have spent that time in minutes in the direct care of this critically ill patient, excluding procedure time. ED Disposition Clinical Impression: Migraine headache, COPD exacerbation, HIV (human immunodeficiency virus infection), Smoker Disposition: DC TO HOME OR SELFCARE Is pt being admited?: No Does the pt Need Aspirin: No Condition: Stable Instructions: Chronic Obstructive Pulmonary Disease (ED) Additional Instructions: FOLLOW UP WITH PCP THIS WEEK HYDRATE WELL MEDS ORDERED MOTRIN OR TYLENOL FOR PAIN OR FEVER USE YOUR INHALERS Prescriptions: Butalb/Acetamin/Caff 50-325-40 [Fioricet] 1 tab PO Q6HR PRN #10 tab PRN Reason: Headache predniSONE [Deltasone] 50 mg PO ONCE #4 tablet Sulfamethoxazole/Trimethoprim [Bactrim DS TAB] 1 each PO BID #14 tablet Referrals: PRIMARY CARE, [Primary Care Provider] - 3-5 Days
[2017-11-06 09:32] LABS: Alanine Aminotransferase 20 units/L (7-56); Albumin 4.3 g/dL (3.9-5); BUN/Creatinine Ratio 40; Blood Urea Nitrogen 24 mg/dL (7-17); Calcium 9.4 mg/dL (8.4-10.2); Hemolysis Index 4
[2017-11-06] MEDS ORDERED: DELTASONE PO ONE (09:36)
[2017-11-06] MEDS ORDERED: BACTRIM DS PO ONE (09:36)
[2017-11-06 09:45] LABS: Band Neutrophils # (Manual) 0.1 K/mm3; Basophils % (Manual) 0 % (0.0-1.8); Eosinophils % (Manual) 0 % (0.0-4.3); Platelet Estimate Consistent w Auto; RBC Morphology Normal; Total Cells Counted 100
== END 2017-11-06 10:40 | disposition home or self-care (01) ==
LOC: ED 07:04
DX: G43.909 Migraine, unspecified, not intractable, without status migrainosus (principal); J44.1 Chronic obstructive pulmonary disease with (acute) exacerbation; B20 Human immunodeficiency virus [HIV] disease; I10 Essential (primary) hypertension; K21.9 Gastro-esophageal reflux disease without esophagitis; M19.90 Unspecified osteoarthritis, unspecified site; F32.9 Major depressive disorder, single episode, unspecified; F17.200 Nicotine dependence, unspecified, uncomplicated; Z90.89 Acquired absence of other organs; Z90.710 Acquired absence of both cervix and uterus; Z79.899 Other long term (current) drug therapy; Z88.1 Allergy status to other antibiotic agents
CPT/HCPCS: 36415; 71046; 80053; 85007; 85025; 94640; 99284; J7512

== ENCOUNTER 2017-11-10 09:32 | Emergency (ER) | payer MEDICARE ==
[2017-11-10 09:57] VITALS: BP 123/73
[2017-11-10] MEDS ORDERED: MOTRIN PO ONE (11:31)
--- NOTE | 2017-11-10 11:36 | Emergency Department Report ---
ED General Adult HPI - General Chief complaint: Headache Stated complaint: MIGRANE/BREATHING PROBLEMS Time Seen by Provider: 11/10/17 11:31 Source: patient Mode of arrival: Ambulatory Limitations: No Limitations - History of Present Illness Initial comments: Patient is a 67-year-old female who is presenting with headache. Patient has been seen here in the emergency department multiple times for his condition. Patient states she is trying to follow with her neurologist but he was not present at the day of her appointment. Patient also has a prescription for Fioricet at [facility] but is refusing to give it because of cost. Patient has elected to come to the emergency department at least 2-3 times a week for the last several weeks for a dose of Fioricet. Patient states her headache is 6 out of 10 in severity and is chronic. Patient denies any nausea vomiting fevers chills Stiffness. Patient also states she feels short of breath and wants a breathing treatment at this time. - Related Data Previous Rx's Medication Instructions Recorded Last Taken Type ALBUTEROL Inhaler (OR & NICU) 2 puff IH QID PRN #1 inhalation 07/28/17 Unknown Rx [ProAir HFA Inhaler] Pantoprazole [Protonix TAB] 20 mg PO DAILY #30 tablet. 08/29/17 Unknown Rx Cetirizine HCl [ZyrTEC] 10 mg PO QDAY 21 Days #21 09/27/17 Unknown Rx tab.rapdis Fluticasone [Flonase] 1 spray NS QDAY 14 Days #1 bottle 09/27/17 Unknown Rx Butalb/Acetaminophen/Caffeine 1 cap PO Q8HR PRN #10 cap 10/09/17 Unknown Rx [Fioricet 50-300-40 mg CAP] ALBUTEROL Inhaler(NF) [VENTOLIN 2 puff IH Q4-6H PRN #1 inha 10/28/17 Unknown Rx Inhaler(NF)] Butalb/Acetamin/Caff 50-325-40 1 tab PO Q6HR PRN #10 tab 11/06/17 Unknown Rx [Fioricet] Sulfamethoxazole/Trimethoprim 1 each PO BID #14 tablet 11/06/17 Unknown Rx [Bactrim DS TAB] predniSONE [Deltasone] 50 mg PO ONCE #4 tablet 11/06/17 Unknown Rx Allergies Allergy/AdvReac Type Severity Reaction Status Date / Time amoxicillin [From Augmentin] Allergy Unknown Verified 10/28/17 11:13 clavulanic acid Allergy Unknown Verified 10/28/17 11:13 [From Augmentin] gentamicin Allergy Unknown Verified 10/28/17 11:13 ED Review of Systems ROS: Stated complaint: MIGRANE/BREATHING PROBLEMS Other details as noted in HPI Comment: All other systems reviewed and negative ED Past Medical Hx - Past Medical History Previous Medical History?: Yes Hx Hypertension: Yes Hx GERD: Yes Hx Arthritis: Yes Hx Psychiatric Treatment: Yes (depression) Hx COPD: Yes Hx HIV: Yes Additional medical history: sleep apnea - Surgical History Past Surgical History?: Yes Additional Surgical History: tonsilectomy, hysterectomy, Broken right arm - Social History Smoking Status: Current Every Day Smoker Substance Use Type: Prescribed - Medications Home Medications: Home Medications Medication Instructions Recorded Confirmed Last Taken Type ALBUTEROL Inhaler (OR & NICU) 2 puff IH QID PRN #1 inhalation 07/28/17 Unknown Rx [ProAir HFA Inhaler] Pantoprazole [Protonix TAB] 20 mg PO DAILY #30 tablet. 08/29/17 Unknown Rx Cetirizine HCl [ZyrTEC] 10 mg PO QDAY 21 Days #21 09/27/17 Unknown Rx tab.rapdis Fluticasone [Flonase] 1 spray NS QDAY 14 Days #1 bottle 09/27/17 Unknown Rx Butalb/Acetaminophen/Caffeine 1 cap PO Q8HR PRN #10 cap 10/09/17 Unknown Rx [Fioricet 50-300-40 mg CAP] ALBUTEROL Inhaler(NF) [VENTOLIN 2 puff IH Q4-6H PRN #1 inha 10/28/17 Unknown Rx Inhaler(NF)] Butalb/Acetamin/Caff 50-325-40 1 tab PO Q6HR PRN #10 tab 11/06/17 Unknown Rx [Fioricet] Sulfamethoxazole/Trimethoprim 1 each PO BID #14 tablet 11/06/17 Unknown Rx [Bactrim DS TAB] predniSONE [Deltasone] 50 mg PO ONCE #4 tablet 11/06/17 Unknown Rx ED Physical Exam - General Limitations: No Limitations General appearance: alert, in no apparent distress, other (patient does not appear to be in pain and is resting comfortably watching television) - Head Head exam: Present: atraumatic, normocephalic - Eye Eye exam: Present: normal appearance - ENT ENT exam: Present: mucous membranes moist - Neck Neck exam: Present: normal inspection - Respiratory Respiratory exam: Present: normal lung sounds bilaterally. Absent: respiratory distress, wheezes, rales, rhonchi, stridor, accessory muscle use - Cardiovascular Cardiovascular Exam: Present: regular rate, normal rhythm. Absent: systolic murmur, diastolic murmur, rubs, gallop - GI/Abdominal GI/Abdominal exam: Present: soft, normal bowel sounds. Absent: distended, tenderness, guarding - Extremities Exam Extremities exam: Present: normal inspection - Back Exam Back exam: Present: normal inspection - Neurological Exam Neurological exam: Present: alert, oriented X3 - Psychiatric Psychiatric exam: Present: normal affect, normal mood - Skin Skin exam: Present: warm, dry, intact, normal color. Absent: rash ED Course Vital Signs 11/10/17 09:52 Temperature 99 F Pulse Rate 82 Respiratory 18 Rate Blood Pressure 123/73 O2 Sat by Pulse 95 Oximetry ED Medical Decision Making - Medical Decision Making Patient is a 67-year-old female who is inappropriately B and coming to the emergency department to acquire Fioricet. Patient states she has a prescription at [facility] but is refusing to get it because of the cost. Patient was given a good Rx car by social work. Patient's lungs are clear to auscultation she does not seem to be in any respiratory distress and a breathing treatment was not warranted at this time. Also had a long conversation as well to social work regarding misuse of the emergency department and chronic pain management from the emergency department. Patient will should no longer be given Fioricet here in the emergency department and needs to follow with her neurologist and get her prescriptions filled. Critical care attestation.: If time is entered above; I have spent that time in minutes in the direct care of this critically ill patient, excluding procedure time. ED Disposition Clinical Impression: Chronic headache Qualifiers: Headache type: unspecified Intractability: not intractable Qualified Code(s): R51 - Headache Disposition: DC-01 TO HOME OR SELFCARE Is pt being admited?: No Does the pt Need Aspirin: No Condition: Stable Additional Instructions: Please follow-up with your neurologist as soon as possible. We will no longer be able to supply you with Fioricet here in the emergency department until you are seen by your neurologist. Referrals: PRIMARY CARE, [Primary Care Provider] - 3-5 Days Time of Disposition: 11:36
== END 2017-11-10 11:51 | disposition home or self-care (01) ==
LOC: ED 09:32
DX: R51 Headache (principal); G89.29 Other chronic pain; I10 Essential (primary) hypertension; K21.9 Gastro-esophageal reflux disease without esophagitis; M19.90 Unspecified osteoarthritis, unspecified site; F32.9 Major depressive disorder, single episode, unspecified; J44.9 Chronic obstructive pulmonary disease, unspecified; F17.200 Nicotine dependence, unspecified, uncomplicated; Z90.710 Acquired absence of both cervix and uterus; Z90.89 Acquired absence of other organs; Z88.1 Allergy status to other antibiotic agents; Z88.8 Allergy status to other drugs, medicaments and biological substances
CPT/HCPCS: 93005; 93010; 99282

== ENCOUNTER 2017-11-13 18:50 | Emergency (ER) | payer MEDICARE ==
[2017-11-13] MEDS ORDERED: ULTRAM PO ONE (20:08)
--- NOTE | 2017-11-13 20:14 | Emergency Department Report ---
ED Headache HPI - General Chief Complaint: Headache Stated Complaint: MIGRAINE/ Time Seen by Provider: 11/13/17 20:00 Source: patient - History of Present Illness Initial Comments: Mrs. Aquino is a 67-year-old female with history of HIV, COPD and depression who presents with headache for the last 2 months. She requests neurology referral and pain medication. She has frontal and bitemporal headache with mild photophobia. Pain is dull and throbbing. Pain is 6 out of 10. She has required Fioricet for the past 2 months. She missed her appointment with neurologist Dr. Janette Knight which was arranged by her showcase trimmer at [facility]. [facility]. She has [employer] health insurance as well as Medicare. Denies vomiting. Denies chest pain. Denies paresthesias. Denies paralysis Timing/Duration: other (2 months) Quality: moderate Head Injury Location: frontal, temporal Modifying Factors: improves with: exposure to light Associated Symptoms: denies symptoms Allergies/Adverse Reactions: Allergies amoxicillin [From Augmentin] Allergy (Verified 10/28/17 11:13) Unknown clavulanic acid [From Augmentin] Allergy (Verified 10/28/17 11:13) Unknown gentamicin Allergy (Verified 10/28/17 11:13) Unknown Home Medications: Ambulatory Orders ALBUTEROL Inhaler (OR & NICU) [ProAir HFA Inhaler] 2 puff IH QID PRN #1 inhalation 07/28/17 Pantoprazole [Protonix TAB] 20 mg PO DAILY #30 tablet. 08/29/17 Cetirizine HCl [ZyrTEC] 10 mg PO QDAY 21 Days #21 tab.rapdis 09/27/17 Fluticasone [Flonase] 1 spray NS QDAY 14 Days #1 bottle 09/27/17 Butalb/Acetaminophen/Caffeine [Fioricet 50-300-40 mg CAP] 1 cap PO Q8HR PRN #10 cap 10/09/17 ALBUTEROL Inhaler(NF) [VENTOLIN Inhaler(NF)] 2 puff IH Q4-6H PRN #1 inha Butalb/Acetamin/Caff 50-325-40 [Fioricet] 1 tab PO Q6HR PRN #10 tab 11/06/17 Sulfamethoxazole/Trimethoprim [Bactrim DS TAB] 1 each PO BID #14 tablet predniSONE [Deltasone] 50 mg PO ONCE #4 tablet 11/06/17 ED Review of Systems ROS: Stated complaint: MIGRAINE/ Other details as noted in HPI Comment: All other systems reviewed and negative Constitutional: denies: fever, malaise Respiratory: denies: cough Cardiovascular: denies: chest pain ED Past Medical Hx - Past Medical History Hx Hypertension: Yes Hx GERD: Yes Hx Arthritis: Yes Hx Headaches / Migraines: Yes Hx Psychiatric Treatment: Yes (depression) Hx COPD: Yes Hx HIV: Yes Additional medical history: sleep apnea - Surgical History Additional Surgical History: tonsilectomy, hysterectomy, Broken right arm - Social History Smoking Status: Current Every Day Smoker Substance Use Type: None Other Social History: lives [place] [facility] - Medications Home Medications: Home Medications Medication Instructions Recorded Confirmed Last Taken Type ALBUTEROL Inhaler (OR & NICU) 2 puff IH QID PRN #1 inhalation 07/28/17 Unknown Rx [ProAir HFA Inhaler] Pantoprazole [Protonix TAB] 20 mg PO DAILY #30 tablet. 08/29/17 Unknown Rx Cetirizine HCl [ZyrTEC] 10 mg PO QDAY 21 Days #21 09/27/17 Unknown Rx tab.rapdis Fluticasone [Flonase] 1 spray NS QDAY 14 Days #1 bottle 09/27/17 Unknown Rx Butalb/Acetaminophen/Caffeine 1 cap PO Q8HR PRN #10 cap 10/09/17 Unknown Rx [Fioricet 50-300-40 mg CAP] ALBUTEROL Inhaler(NF) [VENTOLIN 2 puff IH Q4-6H PRN #1 inha 10/28/17 Unknown Rx Inhaler(NF)] Butalb/Acetamin/Caff 50-325-40 1 tab PO Q6HR PRN #10 tab 11/06/17 Unknown Rx [Fioricet] Sulfamethoxazole/Trimethoprim 1 each PO BID #14 tablet 11/06/17 Unknown Rx [Bactrim DS TAB] predniSONE [Deltasone] 50 mg PO ONCE #4 tablet 11/06/17 Unknown Rx ED Physical Exam - General Limitations: No Limitations General appearance: alert, in no apparent distress - Head Head exam: Present: atraumatic, normocephalic - Eye Eye exam: Present: normal appearance - ENT ENT exam: Present: mucous membranes moist - Neck Neck exam: Present: normal inspection. Absent: tenderness, meningismus - Respiratory Respiratory exam: Present: normal lung sounds bilaterally. Absent: respiratory distress, wheezes, rales - Cardiovascular Cardiovascular Exam: Present: regular rate, normal rhythm, normal heart sounds. Absent: bradycardia, tachycardia, systolic murmur, diastolic murmur, rubs, gallop - GI/Abdominal GI/Abdominal exam: Present: soft, normal bowel sounds - Extremities Exam Extremities exam: Present: normal inspection - Back Exam Back exam: Present: normal inspection - Neurological Exam Neurological exam: Present: alert, oriented X3, CN II-XII intact, normal gait. Absent: motor sensory deficit - Psychiatric Psychiatric exam: Present: normal mood, flat affect - Skin Skin exam: Present: warm, dry, intact, normal color. Absent: rash ED Course Vital Signs 11/13/17 19:40 Temperature 98.5 F Pulse Rate 84 Respiratory 18 Rate Blood Pressure 109/66 O2 Sat by Pulse 98 Oximetry ED Medical Decision Making - Medical Decision Making Ms. Aquino has had headache for 2 months. DDX: tension headache, migraine headache, pseudotumor cerebri, intracranial mass, SAH, cavernous thrombosis, sinusitiis, temporal arteritis. I do no suspect acute emergent cause considering normal examination and chronicitiy. I do agree with patient that she should receive a neurology w/u considering age without hx of headache. She was quite upset to hear that I would not provide refill of Fioricet. She requested prescription for tramadol. I only provided one dose of tramadol here in the ED. I have also provided referrals to neurologist on staff. I have also referred her to [facility] hotline for preferred neurologists in network. I reviewed discharge summary from September. She was evaluated for chest pain with normal cardiac evaluation. Also reviewed CT head result from September 18 which did not show acute process. Critical care attestation.: If time is entered above; I have spent that time in minutes in the direct care of this critically ill patient, excluding procedure time. ED Disposition Clinical Impression: Headache Disposition: DC-01 TO HOME OR SELFCARE Is pt being admited?: No Does the pt Need Aspirin: No Condition: Stable Instructions: Acute Headache (ED) Referrals: BRIGIDO AHUMADA MD [Staff Physician] - 3-5 Days JORDON AZUL MD [Staff Physician] - 3-5 Days JANETTE POOL MD [Staff Physician] - 3-5 Days
[2017-11-13 20:34] VITALS: BP 142/72
== END 2017-11-13 20:32 | disposition home or self-care (01) ==
LOC: ED 18:50
DX: R51 Headache (principal); I10 Essential (primary) hypertension; K21.9 Gastro-esophageal reflux disease without esophagitis; M19.90 Unspecified osteoarthritis, unspecified site; F32.9 Major depressive disorder, single episode, unspecified; J44.9 Chronic obstructive pulmonary disease, unspecified; F17.200 Nicotine dependence, unspecified, uncomplicated; G47.30 Sleep apnea, unspecified; Z21 Asymptomatic human immunodeficiency virus [HIV] infection status; Z90.89 Acquired absence of other organs; Z90.710 Acquired absence of both cervix and uterus; Z88.1 Allergy status to other antibiotic agents
CPT/HCPCS: 99282

== ENCOUNTER 2017-11-15 18:30 | Emergency (ER) | payer MEDICARE ==
[2017-11-15] MEDS ORDERED: FIORICET PO ONE (21:58)
[2017-11-15 22:03] VITALS: BP 114/60
--- NOTE | 2017-11-15 22:03 | Emergency Department Report ---
ED Headache HPI - General Chief Complaint: Headache Stated Complaint: SOB MIGRAINE Time Seen by Provider: 11/15/17 21:52 Source: patient - History of Present Illness Initial Comments: Patient is 67-year-old female with history of HIV and migraine. Patient presented to the ER complaining off headache for the last 3 days. Patient stated that this is similar to her previous headache with no different. Patient stated that she usually takes Fioricet and that helped her headache a lot. Patient denied any fever, neck pain, chest pain, abdominal pain, nausea or vomiting. And also denied any weakness, numbness or tingling sensation. No bowel or bladder incontinence. Timing/Duration: 24 hours Quality: moderate Head Injury Location: temporal Recent Head Trauma: no recent headache/trauma, frequent headaches, chronic headaches Modifying Factors: improves with: medication (Fioricet) Associated Symptoms: denies: denies symptoms, confusion, fatigue, facial pain, fever/chills, flushing, loss of consciousness, nausea/vomiting, nasal congestion , nasal drainage, numbness in legs/feet, rash, seizures, sinus infection, stiff neck, vision changes, weakness, other Allergies/Adverse Reactions: Allergies amoxicillin [From Augmentin] Allergy (Verified 10/28/17 11:13) Unknown clavulanic acid [From Augmentin] Allergy (Verified 10/28/17 11:13) Unknown gentamicin Allergy (Verified 10/28/17 11:13) Unknown Home Medications: Ambulatory Orders ALBUTEROL Inhaler (OR & NICU) [ProAir HFA Inhaler] 2 puff IH QID PRN #1 inhalation 07/28/17 Pantoprazole [Protonix TAB] 20 mg PO DAILY #30 tablet. 08/29/17 Cetirizine HCl [ZyrTEC] 10 mg PO QDAY 21 Days #21 tab.rapdis 09/27/17 Fluticasone [Flonase] 1 spray NS QDAY 14 Days #1 bottle 09/27/17 Butalb/Acetaminophen/Caffeine [Fioricet 50-300-40 mg CAP] 1 cap PO Q8HR PRN #10 cap 10/09/17 ALBUTEROL Inhaler(NF) [VENTOLIN Inhaler(NF)] 2 puff IH Q4-6H PRN #1 inha Butalb/Acetamin/Caff 50-325-40 [Fioricet] 1 tab PO Q6HR PRN #10 tab 11/06/17 Sulfamethoxazole/Trimethoprim [Bactrim DS TAB] 1 each PO BID #14 tablet predniSONE [Deltasone] 50 mg PO ONCE #4 tablet 11/06/17 ED Review of Systems ROS: Stated complaint: SOB MIGRAINE Other details as noted in HPI Comment: All other systems reviewed and negative Constitutional: denies: chills, fever Respiratory: denies: cough, orthopnea, shortness of breath, SOB with exertion, SOB at rest Cardiovascular: denies: chest pain, palpitations, dyspnea on exertion Gastrointestinal: denies: abdominal pain, nausea, vomiting, diarrhea, constipation, hematemesis, melena, hematochezia Genitourinary: denies: urgency, dysuria, frequency, hematuria, discharge, abnormal menses Skin: denies: rash Neurological: headache. denies: weakness, numbness, paresthesias, confusion Psychiatric: denies: depression, auditory hallucinations, visual hallucinations , homicidal thoughts, suicidal thoughts ED Past Medical Hx - Past Medical History Hx Hypertension: Yes Hx GERD: Yes Hx Arthritis: Yes Hx Headaches / Migraines: Yes Hx Psychiatric Treatment: Yes (depression) Hx COPD: Yes Hx HIV: Yes Additional medical history: sleep apnea - Surgical History Additional Surgical History: tonsilectomy, hysterectomy, Broken right arm - Social History Smoking Status: Never Smoker Substance Use Type: None - Medications Home Medications: Home Medications Medication Instructions Recorded Confirmed Last Taken Type ALBUTEROL Inhaler (OR & NICU) 2 puff IH QID PRN #1 inhalation 07/28/17 Unknown Rx [ProAir HFA Inhaler] Pantoprazole [Protonix TAB] 20 mg PO DAILY #30 tablet.dr 08/29/17 Unknown Rx Cetirizine HCl [ZyrTEC] 10 mg PO QDAY 21 Days #21 09/27/17 Unknown Rx tab.rapdis Fluticasone [Flonase] 1 spray NS QDAY 14 Days #1 bottle 09/27/17 Unknown Rx Butalb/Acetaminophen/Caffeine 1 cap PO Q8HR PRN #10 cap 10/09/17 Unknown Rx [Fioricet 50-300-40 mg CAP] ALBUTEROL Inhaler(NF) [VENTOLIN 2 puff IH Q4-6H PRN #1 inha 10/28/17 Unknown Rx Inhaler(NF)] Butalb/Acetamin/Caff 50-325-40 1 tab PO Q6HR PRN #10 tab 11/06/17 Unknown Rx [Fioricet] Sulfamethoxazole/Trimethoprim 1 each PO BID #14 tablet 11/06/17 Unknown Rx [Bactrim DS TAB] predniSONE [Deltasone] 50 mg PO ONCE #4 tablet 11/06/17 Unknown Rx ED Physical Exam - General Limitations: No Limitations General appearance: alert, in no apparent distress - Head Head exam: Present: atraumatic, normocephalic, normal inspection - Eye Eye exam: Present: normal appearance, PERRL - ENT ENT exam: Present: normal exam, normal orophraynx, mucous membranes moist, TM's normal bilaterally, normal external ear exam - Neck Neck exam: Present: normal inspection, full ROM. Absent: tenderness, meningismus, lymphadenopathy, thyromegaly - Respiratory Respiratory exam: Present: normal lung sounds bilaterally. Absent: respiratory distress, wheezes, rales, rhonchi, chest wall tenderness, accessory muscle use, decreased breath sounds, prolonged expiratory - Cardiovascular Cardiovascular Exam: Present: regular rate, normal rhythm, normal heart sounds - GI/Abdominal GI/Abdominal exam: Present: soft, normal bowel sounds. Absent: distended, tenderness, guarding, rebound, rigid, organomegaly, mass, bruit, pulsatile mass - Extremities Exam Extremities exam: Present: normal inspection, full ROM, normal capillary refill. Absent: tenderness, pedal edema, joint swelling, calf tenderness - Back Exam Back exam: Present: normal inspection, full ROM. Absent: tenderness, CVA tenderness (R), CVA tenderness (L), muscle spasm, paraspinal tenderness, vertebral tenderness - Neurological Exam Neurological exam: Present: alert, oriented X3, CN II-XII intact, normal gait, reflexes normal - Skin Skin exam: Present: warm, intact, normal color ED Course Vital Signs 11/15/17 18:38 Temperature 98.2 F Pulse Rate 75 Respiratory 18 Rate Blood Pressure 100/65 O2 Sat by Pulse 96 Oximetry ED Medical Decision Making - Medical Decision Making Ms Aquino is 67-year-old female with history of HIV and migraine. Patient presented to the ER complaining off headache for the last 3 days. Patient stated that this is similar to her previous headache with no different. Patient stated that she usually takes Fioricet and that helped her headache a lot. Patient denied any fever, neck pain, chest pain, abdominal pain, nausea or vomiting. And also denied any weakness, numbness or tingling sensation. No bowel or bladder incontinence. No clinical evidence of meningitis or space occupying lesion in the brain. I believe this is migraine as patient stating that this is similar to what she is to have. I give the patient Fioricet in the ER which helped her headache and I gave a prescription and to follow-up with our neurologist. Critical care attestation.: If time is entered above; I have spent that time in minutes in the direct care of this critically ill patient, excluding procedure time. ED Disposition Clinical Impression: Headache, migraine Disposition: DC- TO HOME OR SELFCARE Is pt being admited?: No Condition: Stable Instructions: Acute Headache (ED), Migraine Headache (ED) Referrals: PRIMARY CARE, [Primary Care Provider] - 3-5 Days
== END 2017-11-15 22:45 | disposition home or self-care (01) ==
LOC: ED 18:30
DX: G43.909 Migraine, unspecified, not intractable, without status migrainosus (principal); Z21 Asymptomatic human immunodeficiency virus [HIV] infection status; Z88.1 Allergy status to other antibiotic agents; I10 Essential (primary) hypertension; K21.9 Gastro-esophageal reflux disease without esophagitis; M19.90 Unspecified osteoarthritis, unspecified site; F32.9 Major depressive disorder, single episode, unspecified; J44.9 Chronic obstructive pulmonary disease, unspecified; G47.30 Sleep apnea, unspecified; Z90.710 Acquired absence of both cervix and uterus; Z90.89 Acquired absence of other organs
CPT/HCPCS: 99283

== ENCOUNTER 2017-11-18 17:59 | Emergency (ER) | payer MEDICARE ==
[2017-11-18 18:08] VITALS: BP 104/66
== END 2017-11-18 18:40 | disposition left against medical advice (07) ==
LOC: ED 17:59
DX: M79.672 Pain in left foot (principal); Z53.21 Procedure and treatment not carried out due to patient leaving prior to being seen by health care provider
CPT/HCPCS: 93005; 93010

== ENCOUNTER 2017-11-19 01:44 | Emergency (ER) | payer MEDICARE ==
[2017-11-19] MEDS ORDERED: FIORICET PO ONE (03:28)
--- NOTE | 2017-11-19 03:34 | Emergency Department Report ---
ED General Adult HPI - General Chief complaint: Headache Stated complaint: HEADACHE Time Seen by Provider: 11/19/17 03:06 Source: patient Mode of arrival: Ambulatory Limitations: No Limitations - History of Present Illness Initial comments: 67-year-old female with a past medical history of COPD HIV arthritis GERD migraines hypertension depression comes in reporting she's had a migraine times months. She also complains of left second toe pain 2 weeks and shortness of breathing that started today. Patient denies fever or chills, vomiting but does admit to nausea. Patient reports that she was supposed to follow-up with the neurologist but has not seen. She is followed by the [facility] in [place] area patient does report walking a lot in reports that she had a bandage on her left second toe but it had come off that she did not replace it. She does admit to smoking cigarettes. -: days(s) (shortness of breathing), week(s) (2 sore on left second toe), month( s) (migraine) Location: lower extremity (left second toe) Severity scale (0 -10): 8 Quality: aching Worsens with: none - Related Data Previous Rx's Medication Instructions Recorded Last Taken Type ALBUTEROL Inhaler (OR & NICU) 2 puff IH QID PRN #1 inhalation 07/28/17 Unknown Rx [ProAir HFA Inhaler] Pantoprazole [Protonix TAB] 20 mg PO DAILY #30 tablet. 08/29/17 Unknown Rx Cetirizine HCl [ZyrTEC] 10 mg PO QDAY 21 Days #21 09/27/17 Unknown Rx tab.rapdis Fluticasone [Flonase] 1 spray NS QDAY 14 Days #1 bottle 09/27/17 Unknown Rx Butalb/Acetaminophen/Caffeine 1 cap PO Q8HR PRN #10 cap 10/09/17 Unknown Rx [Fioricet 50-300-40 mg CAP] ALBUTEROL Inhaler(NF) [VENTOLIN 2 puff IH Q4-6H PRN #1 inha 10/28/17 Unknown Rx Inhaler(NF)] Butalb/Acetamin/Caff 50-325-40 1 tab PO Q6HR PRN #10 tab 11/06/17 Unknown Rx [Fioricet] Sulfamethoxazole/Trimethoprim 1 each PO BID #14 tablet 11/06/17 Unknown Rx [Bactrim DS TAB] predniSONE [Deltasone] 50 mg PO ONCE #4 tablet 11/06/17 Unknown Rx Butalb/Acetamin/Caff 50-325-40 1 tab PO Q6HR PRN #10 tab 11/19/17 Unknown Rx [Fioricet] Sulfamethoxazole/Trimethoprim 1 each PO BID #14 tablet 11/19/17 Unknown Rx [Bactrim DS TAB] Allergies Allergy/AdvReac Type Severity Reaction Status Date / Time amoxicillin [From Augmentin] Allergy Unknown Verified 10/28/17 11:13 clavulanic acid Allergy Unknown Verified 10/28/17 11:13 [From Augmentin] gentamicin Allergy Unknown Verified 10/28/17 11:13 ED Review of Systems ROS: Stated complaint: HEADACHE Other details as noted in HPI Constitutional: denies: chills, fever Eyes: other (photophobia). denies: eye pain, eye discharge, vision change ENT: denies: ear pain, throat pain Respiratory: cough, shortness of breath Cardiovascular: denies: chest pain, palpitations Endocrine: no symptoms reported Gastrointestinal: nausea (resolved ) Skin: lesions Neurological: headache ED Past Medical Hx - Past Medical History Previous Medical History?: Yes Hx Hypertension: Yes Hx GERD: Yes Hx Arthritis: Yes Hx Headaches / Migraines: Yes Hx Psychiatric Treatment: Yes (depression) Hx COPD: Yes Hx HIV: Yes Additional medical history: sleep apnea - Surgical History Past Surgical History?: Yes Additional Surgical History: tonsilectomy, hysterectomy, Broken right arm - Social History Smoking Status: Current Every Day Smoker Substance Use Type: None - Medications Home Medications: Home Medications Medication Instructions Recorded Confirmed Last Taken Type ALBUTEROL Inhaler (OR & NICU) 2 puff IH QID PRN #1 inhalation 07/28/17 Unknown Rx [ProAir HFA Inhaler] Pantoprazole [Protonix TAB] 20 mg PO DAILY #30 tablet. 08/29/17 Unknown Rx Cetirizine HCl [ZyrTEC] 10 mg PO QDAY 21 Days #21 09/27/17 Unknown Rx tab.rapdis Fluticasone [Flonase] 1 spray NS QDAY 14 Days #1 bottle 09/27/17 Unknown Rx Butalb/Acetaminophen/Caffeine 1 cap PO Q8HR PRN #10 cap 10/09/17 Unknown Rx [Fioricet 50-300-40 mg CAP] ALBUTEROL Inhaler(NF) [VENTOLIN 2 puff IH Q4-6H PRN #1 inha 10/28/17 Unknown Rx Inhaler(NF)] Butalb/Acetamin/Caff 50-325-40 1 tab PO Q6HR PRN #10 tab 11/06/17 Unknown Rx [Fioricet] Sulfamethoxazole/Trimethoprim 1 each PO BID #14 tablet 11/06/17 Unknown Rx [Bactrim DS TAB] predniSONE [Deltasone] 50 mg PO ONCE #4 tablet 11/06/17 Unknown Rx Butalb/Acetamin/Caff 50-325-40 1 tab PO Q6HR PRN #10 tab 11/19/17 Unknown Rx [Fioricet] Sulfamethoxazole/Trimethoprim 1 each PO BID #14 tablet 11/19/17 Unknown Rx [Bactrim DS TAB] ED Physical Exam - General Limitations: No Limitations General appearance: alert, in no apparent distress - Head Head exam: Present: atraumatic, normocephalic - Eye Eye exam: Present: EOMI - ENT ENT exam: Present: mucous membranes moist - Neck Neck exam: Present: normal inspection, full ROM - Respiratory Respiratory exam: Present: normal lung sounds bilaterally. Absent: respiratory distress - Cardiovascular Cardiovascular Exam: Present: regular rate, normal rhythm. Absent: systolic murmur, diastolic murmur, rubs, gallop - Back Exam Back exam: Present: normal inspection, full ROM - Neurological Exam Neurological exam: Present: alert, oriented X3, normal gait - Expanded Neurological Exam Expanded Patient oriented to: Present: person, place, time Cranial nerves: EOM's Intact: Normal, Gag Reflex: Normal, Tongue Deviation: Normal, Nystagmus: Normal, Facial Sensation: Normal, Facial Palsy with Forehead Movement: Normal, Facial Palsy without Forehead Movement: Normal Cerebellar function: Finger to Nose: Normal, Heel to Gonzalez: Normal, Romberg: Normal Upper motor neuron: Dale Neglect: Normal, Pronator Drift: Normal, Babinski Sign : Normal, Sensory Extinction: Normal Sensory exam: Upper Extremity Light Touch: Normal, Upper Extremity Pin Prick: Normal, Upper Extremity Temperature: Normal, UE 2 Point Discrimination: Normal, Lower Extremity Light Touch: Normal, Lower Extremity Pin Prick: Normal Motor strength exam: RUE: 4, LUE: 4, RLE: 4, LLE: 4 Best Eye Response ([place]): (4) open spontaneously Best Motor Response ([place]): (6) obeys commands Best Verbal Response ([place]): (5) oriented Shiva Total: 15 ED Course Vital Signs 11/19/17 11/19/17 01:55 04:04 Temperature 97.9 F Pulse Rate 81 Respiratory 16 18 Rate Blood Pressure 121/65 O2 Sat by Pulse 89 Oximetry ED Medical Decision Making - Radiology Data Radiology results: report reviewed FINAL REPORT PROCEDURE: XR CHEST ROUTINE 2V TECHNIQUE: PA and lateral chest radiographs were obtained. CPT 06614 HISTORY: sob COMPARISON: The 11/07/2017 FINDINGS: Heart: Normal. Mediastinum/Vessels: Normal. Lungs/Pleural space: The right lung is clear and expanded. The there is fibrosis at the left lung base with a small effusion. There are no pneumothoraces. The overall appearance of the heart and lungs is unchanged the prior study.. Bony thorax: No acute osseous abnormality. Other: IMPRESSION: Heart size is normal. There is stable fibrosis and pleural fluid at the left lung base.. Transcribed By: CO Dictated By: JR CLANCY MD Electronically Authenticated By: JR CLANCY MD Signed Date/Time: 11/19/17413 DD/ 3 TD/TT: 11/19/17413 - Medical Decision Making Patient has been evaluated by this provider fast track. What appears to feel for patient for headache and pain Chest x-ray ordered for shortness of breath and cough with a history of HIV. Referral for neurologist recommend patient to call her insurance company and asked them which neurologist is covered by her insurance. Since patient is having trouble finding a neurologist that will accept her insurance that we have referred her to from the hospital here. Critical care attestation.: If time is entered above; I have spent that time in minutes in the direct care of this critically ill patient, excluding procedure time. ED Disposition Clinical Impression: Cellulitis of toe of left foot Migraine Qualifiers: Migraine type: unspecified Status migrainosus presence: without status migrainosus Intractability: intractable Qualified Code(s): G43.919 - Migraine, unspecified, intractable, without status migrainosus Disposition: - TO HOME OR SELFCARE Is pt being admited?: No Does the pt Need Aspirin: No Condition: Stable Instructions: Cellulitis (ED), Migraine Headache (ED), Chronic Obstructive Pulmonary Disease (ED) Additional Instructions: Please take indication for migraine complete antibiotics as prescribed. You can take Tylenol or Motrin as needed pain. Please follow up with a neurologist and her primary care provider. Prescriptions: Butalb/Acetamin/Caff 50-325-40 [Fioricet] 1 tab PO Q6HR PRN #10 tab PRN Reason: Headache Sulfamethoxazole/Trimethoprim [Bactrim DS TAB] 1 each PO BID #14 tablet Referrals: PRIMARY CAREMD [Primary Care Provider] - 3-5 Days FELIZ MALDONADO MD [Staff Physician] - 3-5 Days LIV PATEL MD [Referring] - 3-5 Days BUTCH COLEMAN MD [Staff Physician] - 3-5 Days
--- NOTE | 2017-11-19 04:15 | XRay Report ---
FINAL REPORT PROCEDURE: XR CHEST ROUTINE 2V TECHNIQUE: PA and lateral chest radiographs were obtained. CPT 09494 HISTORY: sob COMPARISON: The 11/07/2017 FINDINGS: Heart: Normal. Mediastinum/Vessels: Normal. Lungs/Pleural space: The right lung is clear and expanded. The there is fibrosis at the left lung base with a small effusion. There are no pneumothoraces. The overall appearance of the heart and lungs is unchanged the prior study.. Bony thorax: No acute osseous abnormality. Other: IMPRESSION: Heart size is normal. There is stable fibrosis and pleural fluid at the left lung base..
[2017-11-19 05:08] VITALS: BP 132/74
== END 2017-11-19 05:06 | disposition home or self-care (01) ==
LOC: ED 01:44
DX: L03.032 Cellulitis of left toe (principal); G43.919 Migraine, unspecified, intractable, without status migrainosus; I10 Essential (primary) hypertension; K21.9 Gastro-esophageal reflux disease without esophagitis; M19.90 Unspecified osteoarthritis, unspecified site; J44.9 Chronic obstructive pulmonary disease, unspecified; F17.200 Nicotine dependence, unspecified, uncomplicated; Z90.710 Acquired absence of both cervix and uterus; Z88.1 Allergy status to other antibiotic agents; Z88.8 Allergy status to other drugs, medicaments and biological substances
CPT/HCPCS: 71046; 99283

== ENCOUNTER 2017-11-23 11:05 | Emergency (ER) | payer MEDICARE ==
[2017-11-23 13:05] VITALS: BP 117/68
--- NOTE | 2017-11-23 13:48 | Emergency Department Report ---
- General Chief complaint: Extremity Problem,Nontraumatic Stated complaint: FOOT PAIN Time Seen by Provider: 11/23/17 13:40 Source: patient Mode of arrival: Ambulatory Limitations: No Limitations - History of Present Illness Initial comments: Here 4 days ago for infection of toe, states it isn't better, but also isn't any worse. No systemic symptoms. No hx DM. MD complaint: other (redness) -: Gradual, week(s) (2) Location: L foot Severity: moderate Severity scale (0 -10): 5 Quality: aching Consistency: constant Improves with: none Worsens with: none Context: none Associated symptoms: denies other symptoms Treatments Prior to Arrival: antibiotic - Related Data Previous Rx's Medication Instructions Recorded Last Taken Type ALBUTEROL Inhaler (OR & NICU) 2 puff IH QID PRN #1 inhalation 07/28/17 Unknown Rx [ProAir HFA Inhaler] Pantoprazole [Protonix TAB] 20 mg PO DAILY #30 tablet. 08/29/17 Unknown Rx Cetirizine HCl [ZyrTEC] 10 mg PO QDAY 21 Days #21 09/27/17 Unknown Rx tab.rapdis Fluticasone [Flonase] 1 spray NS QDAY 14 Days #1 bottle 09/27/17 Unknown Rx Butalb/Acetaminophen/Caffeine 1 cap PO Q8HR PRN #10 cap 10/09/17 Unknown Rx [Fioricet 50-300-40 mg CAP] ALBUTEROL Inhaler(NF) [VENTOLIN 2 puff IH Q4-6H PRN #1 inha 10/28/17 Unknown Rx Inhaler(NF)] Butalb/Acetamin/Caff 50-325-40 1 tab PO Q6HR PRN #10 tab 11/06/17 Unknown Rx [Fioricet] Sulfamethoxazole/Trimethoprim 1 each PO BID #14 tablet 11/06/17 Unknown Rx [Bactrim DS TAB] predniSONE [Deltasone] 50 mg PO ONCE #4 tablet 11/06/17 Unknown Rx Butalb/Acetamin/Caff 50-325-40 1 tab PO Q6HR PRN #10 tab 11/19/17 Unknown Rx [Fioricet] Sulfamethoxazole/Trimethoprim 1 each PO BID #14 tablet 11/19/17 Unknown Rx [Bactrim DS TAB] Cephalexin [Keflex] 500 mg PO Q6HR #40 capsule 11/23/17 Unknown Rx Allergies Allergy/AdvReac Type Severity Reaction Status Date / Time amoxicillin [From Augmentin] Allergy Unknown Verified 10/28/17 11:13 clavulanic acid Allergy Unknown Verified 10/28/17 11:13 [From Augmentin] gentamicin Allergy Unknown Verified 10/28/17 11:13 Abscess Boil HPI - HPI Chief Complaint: Extremity Problem,Nontraumatic Stated Complaint: FOOT PAIN Home Medications: Previous Rx's Medication Instructions Recorded Last Taken Type ALBUTEROL Inhaler (OR & NICU) 2 puff IH QID PRN #1 inhalation 07/28/17 Unknown Rx [ProAir HFA Inhaler] Pantoprazole [Protonix TAB] 20 mg PO DAILY #30 tablet. 08/29/17 Unknown Rx Cetirizine HCl [ZyrTEC] 10 mg PO QDAY 21 Days #21 09/27/17 Unknown Rx tab.rapdis Fluticasone [Flonase] 1 spray NS QDAY 14 Days #1 bottle 09/27/17 Unknown Rx Butalb/Acetaminophen/Caffeine 1 cap PO Q8HR PRN #10 cap 10/09/17 Unknown Rx [Fioricet 50-300-40 mg CAP] ALBUTEROL Inhaler(NF) [VENTOLIN 2 puff IH Q4-6H PRN #1 inha 10/28/17 Unknown Rx Inhaler(NF)] Butalb/Acetamin/Caff 50-325-40 1 tab PO Q6HR PRN #10 tab 11/06/17 Unknown Rx [Fioricet] Sulfamethoxazole/Trimethoprim 1 each PO BID #14 tablet 11/06/17 Unknown Rx [Bactrim DS TAB] predniSONE [Deltasone] 50 mg PO ONCE #4 tablet 11/06/17 Unknown Rx Butalb/Acetamin/Caff 50-325-40 1 tab PO Q6HR PRN #10 tab 11/19/17 Unknown Rx [Fioricet] Sulfamethoxazole/Trimethoprim 1 each PO BID #14 tablet 11/19/17 Unknown Rx [Bactrim DS TAB] Cephalexin [Keflex] 500 mg PO Q6HR #40 capsule 11/23/17 Unknown Rx Allergies/Adverse Reactions: Allergies Allergy/AdvReac Type Severity Reaction Status Date / Time amoxicillin [From Augmentin] Allergy Unknown Verified 10/28/17 11:13 clavulanic acid Allergy Unknown Verified 10/28/17 11:13 [From Augmentin] gentamicin Allergy Unknown Verified 10/28/17 11:13 ED Review of Systems ROS: Stated complaint: FOOT PAIN Other details as noted in HPI Comment: All other systems reviewed and negative Constitutional: denies: chills, fever Eyes: denies: eye pain, eye discharge, vision change ENT: denies: ear pain, throat pain Respiratory: denies: cough, shortness of breath, wheezing Cardiovascular: denies: chest pain, palpitations Endocrine: no symptoms reported Gastrointestinal: denies: abdominal pain, nausea, diarrhea Genitourinary: denies: urgency, dysuria, discharge Musculoskeletal: denies: back pain, joint swelling, arthralgia Skin: change in color. denies: rash, lesions Neurological: denies: headache, weakness, paresthesias Psychiatric: denies: anxiety, depression Hematological/Lymphatic: denies: easy bleeding, easy bruising ED Past Medical Hx - Past Medical History Hx Hypertension: Yes Hx GERD: Yes Hx Arthritis: Yes Hx Headaches / Migraines: Yes Hx Psychiatric Treatment: Yes (depression) Hx COPD: Yes Hx HIV: Yes Additional medical history: sleep apnea - Surgical History Additional Surgical History: tonsilectomy, hysterectomy, Broken right arm - Social History Smoking Status: Current Every Day Smoker Substance Use Type: None - Medications Home Medications: Home Medications Medication Instructions Recorded Confirmed Last Taken Type ALBUTEROL Inhaler (OR & NICU) 2 puff IH QID PRN #1 inhalation 07/28/17 Unknown Rx [ProAir HFA Inhaler] Pantoprazole [Protonix TAB] 20 mg PO DAILY #30 tablet.dr 08/29/17 Unknown Rx Cetirizine HCl [ZyrTEC] 10 mg PO QDAY 21 Days #21 09/27/17 Unknown Rx tab.rapdis Fluticasone [Flonase] 1 spray NS QDAY 14 Days #1 bottle 09/27/17 Unknown Rx Butalb/Acetaminophen/Caffeine 1 cap PO Q8HR PRN #10 cap 10/09/17 Unknown Rx [Fioricet 50-300-40 mg CAP] ALBUTEROL Inhaler(NF) [VENTOLIN 2 puff IH Q4-6H PRN #1 inha 10/28/17 Unknown Rx Inhaler(NF)] Butalb/Acetamin/Caff 50-325-40 1 tab PO Q6HR PRN #10 tab 11/06/17 Unknown Rx [Fioricet] Sulfamethoxazole/Trimethoprim 1 each PO BID #14 tablet 11/06/17 Unknown Rx [Bactrim DS TAB] predniSONE [Deltasone] 50 mg PO ONCE #4 tablet 11/06/17 Unknown Rx Butalb/Acetamin/Caff 50-325-40 1 tab PO Q6HR PRN #10 tab 11/19/17 Unknown Rx [Fioricet] Sulfamethoxazole/Trimethoprim 1 each PO BID #14 tablet 11/19/17 Unknown Rx [Bactrim DS TAB] Cephalexin [Keflex] 500 mg PO Q6HR #40 capsule 11/23/17 Unknown Rx ED Physical Exam - General Limitations: No Limitations General appearance: alert, in no apparent distress - Head Head exam: Present: atraumatic, normocephalic - Eye Eye exam: Present: normal appearance - ENT ENT exam: Present: mucous membranes moist - Neck Neck exam: Present: normal inspection - Respiratory Respiratory exam: Present: normal lung sounds bilaterally. Absent: respiratory distress - Cardiovascular Cardiovascular Exam: Present: regular rate, normal rhythm. Absent: systolic murmur, diastolic murmur, rubs, gallop - GI/Abdominal GI/Abdominal exam: Present: soft, normal bowel sounds - Extremities Exam Extremities exam: Present: normal inspection - Back Exam Back exam: Present: normal inspection - Neurological Exam Neurological exam: Present: alert, oriented X3 - Psychiatric Psychiatric exam: Present: normal affect, normal mood - Skin Skin exam: Present: warm, dry, intact, erythema (L 2nd toe with small ulceration to the dorsal aspect. FROM. ). Absent: rash ED Course Vital Signs 11/23/17 13:02 Temperature 98.4 F Pulse Rate 84 Respiratory 16 Rate Blood Pressure 117/68 O2 Sat by Pulse 96 Oximetry ED Medical Decision Making - Medical Decision Making Pt here with cellulitis of toe, not improving with Bactrim. No purulent drainage. L2nd toe cellulitis on exam. Will add Keflex, f/u PCP, return if worse. - Differential Diagnosis cellulitis, abscess, bony involvement unlikely Critical care attestation.: If time is entered above; I have spent that time in minutes in the direct care of this critically ill patient, excluding procedure time. ED Disposition Clinical Impression: Cellulitis of toe of left foot Disposition: DC- TO HOME OR SELFCARE Is pt being admited?: No Condition: Good Instructions: Cellulitis (ED) Prescriptions: Cephalexin [Keflex] 500 mg PO Q6HR #40 capsule Referrals: PRIMARY CARE, [Primary Care Provider] - 3-5 Days Time of Disposition: 13:48
== END 2017-11-23 14:00 | disposition home or self-care (01) ==
LOC: ED 11:05
DX: L03.032 Cellulitis of left toe (principal); I10 Essential (primary) hypertension; K21.9 Gastro-esophageal reflux disease without esophagitis; M19.90 Unspecified osteoarthritis, unspecified site; G43.909 Migraine, unspecified, not intractable, without status migrainosus; F32.9 Major depressive disorder, single episode, unspecified; J44.9 Chronic obstructive pulmonary disease, unspecified; F17.200 Nicotine dependence, unspecified, uncomplicated; G47.30 Sleep apnea, unspecified; Z21 Asymptomatic human immunodeficiency virus [HIV] infection status; Z88.1 Allergy status to other antibiotic agents; Z90.710 Acquired absence of both cervix and uterus; Z90.89 Acquired absence of other organs
CPT/HCPCS: 99282

== ENCOUNTER 2018-02-18 08:25 | Emergency (ER) | payer MEDICARE ==
[2018-02-18] MEDS ORDERED: REGLAN IV STA (09:05)
[2018-02-18] MEDS ORDERED: NACL 0.9% 1000 ML 1,000 ML IV ONE (09:05)
[2018-02-18] MEDS ORDERED: TORADOL IV STA (09:05)
[2018-02-18] MEDS ORDERED: BENADRYL IV STA (09:05)
--- NOTE | 2018-02-18 09:13 | Emergency Department Report ---
ED Headache HPI - General Chief Complaint: Headache Stated Complaint: MIGRAINE Time Seen by Provider: 02/18/18 09:05 Exam Limitations: no limitations - History of Present Illness Initial Comments: 67-year-old female with a known history of migraines treated with Fioricet under the care of neurology presents to emergency department complaining of a flareup after running out of her medications. The past couple days. Migrans to the left parietal region and is ready. Ache across her frontal trauma. Was no fever, chills, sweats, chest pain, palpitations, neck pain. This headache is the exact same characteristics in that same type of intensity of she does not have any of her home meds to avert this migraine crisis visits emergency department requesting to be medicated and then have her medications refilled. Head Injury Location: frontal, parietal Recent Head Trauma: frequent headaches Associated Symptoms: denies: fever/chills, loss of consciousness, nausea/vomiting, nasal congestion, nasal drainage, seizures, sinus infection, stiff neck, vision changes Allergies/Adverse Reactions: Allergies amoxicillin [From Augmentin] Allergy (Verified 01/21/18 09:56) Unknown clavulanic acid [From Augmentin] Allergy (Verified 01/21/18 09:56) Unknown gentamicin Allergy (Verified 01/21/18 09:56) Unknown Home Medications: Ambulatory Orders Sulfamethoxazole/Trimethoprim [Bactrim DS TAB] 1 each PO BID #14 tablet 11/06/17 Sulfamethoxazole/Trimethoprim [Bactrim DS TAB] 1 each PO BID #14 tablet 11/19/17 ALBUTEROL Inhaler (OR & NICU) [ProAir HFA Inhaler] 2 puff IH QID PRN #1 inhalation 11/28/17 ALBUTEROL Inhaler(NF) [VENTOLIN Inhaler(NF)] 2 puff IH Q4-6H PRN #1 inha 11/28/17 Cephalexin [Keflex] 500 mg PO Q6HR #28 capsule 11/28/17 Cetirizine HCl [ZyrTEC] 10 mg PO QDAY 21 Days #21 tab.rapdis 11/28/17 Fluticasone [Flonase] 1 spray NS QDAY 14 Days #1 bottle 11/28/17 Pantoprazole [Protonix TAB] 20 mg PO DAILY #30 tablet. 11/28/17 Prednisone [predniSONE 10 mg (6-Day Pack, 21 Tabs)] 10 mg PO .TAPER #1 tab.ds.pk 11/28/17 Butalb/Acetaminophen/Caffeine [Fioricet 50-300-40 mg CAP] 1 cap PO Q6HR PRN #10 cap 01/14/18 Butalb/Acetamin/Caff 50-325-40 [Fioricet] 1 tab PO Q8HR PRN #20 tab 01/21/18 Butalb/Acetamin/Caff 50-325-40 [Fioricet] 1 tab PO Q6HR PRN #10 tab 02/18/18 ED Review of Systems ROS: Stated complaint: MIGRAINE Other details as noted in HPI Constitutional: denies: chills, fever Eyes: denies: eye pain, eye discharge, vision change ENT: denies: ear pain, throat pain Respiratory: denies: cough, shortness of breath, wheezing Cardiovascular: denies: chest pain, palpitations Endocrine: no symptoms reported Gastrointestinal: denies: abdominal pain, nausea, diarrhea Genitourinary: denies: urgency, dysuria, discharge Musculoskeletal: denies: back pain, joint swelling, arthralgia Skin: denies: rash, lesions Neurological: denies: headache, weakness, paresthesias Psychiatric: denies: anxiety, depression Hematological/Lymphatic: denies: easy bleeding, easy bruising ED Past Medical Hx - Past Medical History Previous Medical History?: Yes Hx Hypertension: Yes Hx GERD: Yes Hx Arthritis: Yes Hx Headaches / Migraines: Yes Hx Psychiatric Treatment: Yes (depression) Hx COPD: Yes Hx HIV: Yes Additional medical history: sleep apnea blood in stool - Surgical History Past Surgical History?: Yes Additional Surgical History: tonsilectomy, hysterectomy, Broken right arm - Social History Smoking Status: Current Every Day Smoker Substance Use Type: None - Medications Home Medications: Home Medications Medication Instructions Recorded Confirmed Last Taken Type Sulfamethoxazole/Trimethoprim 1 each PO BID #14 tablet 11/06/17 11/28/17 Unknown Rx [Bactrim DS TAB] Sulfamethoxazole/Trimethoprim 1 each PO BID #14 tablet 11/19/17 11/28/17 Unknown Rx [Bactrim DS TAB] ALBUTEROL Inhaler (OR & NICU) 2 puff IH QID PRN #1 inhalation 11/28/17 Unknown Rx [ProAir HFA Inhaler] ALBUTEROL Inhaler(NF) [VENTOLIN 2 puff IH Q4-6H PRN #1 inha 11/28/17 Unknown Rx Inhaler(NF)] Cephalexin [Keflex] 500 mg PO Q6HR #28 capsule 11/28/17 Unknown Rx Cetirizine HCl [ZyrTEC] 10 mg PO QDAY 21 Days #21 11/28/17 Unknown Rx tab.rapdis Fluticasone [Flonase] 1 spray NS QDAY 14 Days #1 bottle 11/28/17 Unknown Rx Pantoprazole [Protonix TAB] 20 mg PO DAILY #30 tablet.dr 11/28/17 Unknown Rx Prednisone [predniSONE 10 mg 10 mg PO .TAPER #1 tab.ds.pk 11/28/17 Unknown Rx (6-Day Pack, 21 Tabs)] Butalb/Acetaminophen/Caffeine 1 cap PO Q6HR PRN #10 cap 01/14/18 Unknown Rx [Fioricet 50-300-40 mg CAP] Butalb/Acetamin/Caff 50-325-40 1 tab PO Q8HR PRN #20 tab 01/21/18 Unknown Rx [Fioricet] Butalb/Acetamin/Caff 50-325-40 1 tab PO Q6HR PRN #10 tab 02/18/18 Unknown Rx [Fioricet] ED Physical Exam - General Limitations: No Limitations General appearance: alert, in no apparent distress - Head Head exam: Present: atraumatic, normocephalic - Eye Eye exam: Present: normal appearance, other (negative. Funduscopic examination). Absent: nystagmus Pupils: Present: normal accommodation - ENT ENT exam: Present: normal exam, mucous membranes moist - Neck Neck exam: Present: normal inspection, full ROM. Absent: tenderness, meningismus, lymphadenopathy - Respiratory Respiratory exam: Present: normal lung sounds bilaterally. Absent: respiratory distress - Cardiovascular Cardiovascular Exam: Present: regular rate, normal rhythm. Absent: systolic murmur, diastolic murmur, rubs, gallop - GI/Abdominal GI/Abdominal exam: Present: soft, normal bowel sounds - Extremities Exam Extremities exam: Present: normal inspection - Back Exam Back exam: Present: normal inspection - Neurological Exam Neurological exam: Present: alert, oriented X3 - Psychiatric Psychiatric exam: Present: normal affect, normal mood - Skin Skin exam: Present: warm, dry, intact, normal color. Absent: rash ED Course Vital Signs 02/18/18 08:32 Temperature 97.8 F Pulse Rate 85 Respiratory 16 Rate Blood Pressure 112/76 O2 Sat by Pulse 97 Oximetry Critical care attestation.: If time is entered above; I have spent that time in minutes in the direct care of this critically ill patient, excluding procedure time. ED Disposition Clinical Impression: Migraines Disposition: - TO HOME OR SELFCARE Is pt being admited?: No Does the pt Need Aspirin: No Condition: Stable Instructions: Migraine Headache (ED) Prescriptions: Butalb/Acetamin/Caff 50-325-40 [Fioricet] 1 tab PO Q6HR PRN #10 tab PRN Reason: Headache Referrals: PRIMARY CARE,MD [Primary Care Provider] - 3-5 Days (Your neurologist keep the appointment you have scheduled)
[2018-02-18 09:59] VITALS: BP 115/74
== END 2018-02-18 10:24 | disposition home or self-care (01) ==
LOC: ED 08:25
DX: G43.909 Migraine, unspecified, not intractable, without status migrainosus (principal); I10 Essential (primary) hypertension; K21.9 Gastro-esophageal reflux disease without esophagitis; M19.90 Unspecified osteoarthritis, unspecified site; J44.9 Chronic obstructive pulmonary disease, unspecified; F17.200 Nicotine dependence, unspecified, uncomplicated; Z90.710 Acquired absence of both cervix and uterus; Z88.1 Allergy status to other antibiotic agents; Z88.8 Allergy status to other drugs, medicaments and biological substances
CPT/HCPCS: 96374; 96375; 99283; J1200; J1885; J2765; J7030

== ENCOUNTER 2018-02-27 14:43 | Emergency (ER) | payer MEDICARE ==
--- NOTE | 2018-02-27 15:28 | Emergency Department Report ---
ED Headache HPI - General Chief Complaint: Headache Stated Complaint: HEADACHE Time Seen by Provider: 02/27/18 15:16 Source: patient - History of Present Illness Initial Comments: Patient is 67-year-old female with history of HIV and headache migraine. Patient stated that she is having headache since last night. Patient stated that headache is similar to her previous headache. Patient stated that she is out of her Fioricet. Patient denied any fever, neck pain, weakness, numbness or tingling sensation. Timing/Duration: 24 hours Quality: moderate Head Injury Location: frontal Recent Head Trauma: no recent headache/trauma, frequent headaches Associated Symptoms: denies: denies symptoms, confusion, fatigue, facial pain, fever/chills, flushing, loss of consciousness, nausea/vomiting, nasal congestion, nasal drainage, numbness in legs/feet, rash, seizures, sinus infecti on, stiff neck, vision changes, weakness, other Allergies/Adverse Reactions: Allergies amoxicillin [From Augmentin] Allergy (Verified 01/21/18 09:56) Unknown clavulanic acid [From Augmentin] Allergy (Verified 01/21/18 09:56) Unknown gentamicin Allergy (Verified 01/21/18 09:56) Unknown Home Medications: Ambulatory Orders Sulfamethoxazole/Trimethoprim [Bactrim DS TAB] 1 each PO BID #14 tablet 11/06/17 Sulfamethoxazole/Trimethoprim [Bactrim DS TAB] 1 each PO BID #14 tablet 11/19/17 ALBUTEROL Inhaler (OR & NICU) [ProAir HFA Inhaler] 2 puff IH QID PRN #1 inhalation 11/28/17 ALBUTEROL Inhaler(NF) [VENTOLIN Inhaler(NF)] 2 puff IH Q4-6H PRN #1 inha 11/28/17 Cephalexin [Keflex] 500 mg PO Q6HR #28 capsule 11/28/17 Cetirizine HCl [ZyrTEC] 10 mg PO QDAY 21 Days #21 tab.rapdis 11/28/17 Fluticasone [Flonase] 1 spray NS QDAY 14 Days #1 bottle 11/28/17 Pantoprazole [Protonix TAB] 20 mg PO DAILY #30 tablet.dr 11/28/17 Prednisone [predniSONE 10 mg (6-Day Pack, 21 Tabs)] 10 mg PO .TAPER #1 tab.ds.pk 11/28/17 Butalb/Acetaminophen/Caffeine [Fioricet 50-300-40 mg CAP] 1 cap PO Q6HR PRN #10 cap 01/14/18 Butalb/Acetamin/Caff 50-325-40 [Fioricet] 1 tab PO Q8HR PRN #20 tab 01/21/18 Butalb/Acetamin/Caff 50-325-40 [Fioricet] 1 tab PO Q6HR PRN #10 tab 02/18/18 ED Review of Systems ROS: Stated complaint: HEADACHE Other details as noted in HPI Comment: All other systems reviewed and negative Constitutional: denies: chills, fever Respiratory: denies: cough, orthopnea, shortness of breath, SOB with exertion, SOB at rest, wheezing Cardiovascular: denies: chest pain Gastrointestinal: denies: abdominal pain, nausea, vomiting, diarrhea, constipation, hematemesis, hematochezia Neurological: headache. denies: weakness, numbness, paresthesias, confusion, abnormal gait ED Past Medical Hx - Past Medical History Previous Medical History?: Yes Hx Hypertension: Yes Hx GERD: Yes Hx Arthritis: Yes Hx Headaches / Migraines: Yes Hx Psychiatric Treatment: Yes (depression) Hx COPD: Yes Hx HIV: Yes Additional medical history: sleep apnea blood in stool - Surgical History Past Surgical History?: Yes Additional Surgical History: tonsilectomy, hysterectomy, Broken right arm - Social History Smoking Status: Never Smoker Substance Use Type: None - Medications Home Medications: Home Medications Medication Instructions Recorded Confirmed Last Taken Type Sulfamethoxazole/Trimethoprim 1 each PO BID #14 tablet 11/06/17 11/28/17 Unknown Rx [Bactrim DS TAB] Sulfamethoxazole/Trimethoprim 1 each PO BID #14 tablet 11/19/17 11/28/17 Unknown Rx [Bactrim DS TAB] ALBUTEROL Inhaler (OR & NICU) 2 puff IH QID PRN #1 inhalation 11/28/17 Unknown Rx [ProAir HFA Inhaler] ALBUTEROL Inhaler(NF) [VENTOLIN 2 puff IH Q4-6H PRN #1 inha 11/28/17 Unknown Rx Inhaler(NF)] Cephalexin [Keflex] 500 mg PO Q6HR #28 capsule 11/28/17 Unknown Rx Cetirizine HCl [ZyrTEC] 10 mg PO QDAY 21 Days #21 11/28/17 Unknown Rx tab.rapdis Fluticasone [Flonase] 1 spray NS QDAY 14 Days #1 bottle 11/28/17 Unknown Rx Pantoprazole [Protonix TAB] 20 mg PO DAILY #30 tablet.dr 11/28/17 Unknown Rx Prednisone [predniSONE 10 mg 10 mg PO .TAPER #1 tab.ds.pk 11/28/17 Unknown Rx (6-Day Pack, 21 Tabs)] Butalb/Acetaminophen/Caffeine 1 cap PO Q6HR PRN #10 cap 01/14/18 Unknown Rx [Fioricet 50-300-40 mg CAP] Butalb/Acetamin/Caff 50-325-40 1 tab PO Q8HR PRN #20 tab 01/21/18 Unknown Rx [Fioricet] Butalb/Acetamin/Caff 50-325-40 1 tab PO Q6HR PRN #10 tab 02/18/18 Unknown Rx [Fioricet] ED Physical Exam - General Limitations: No Limitations General appearance: alert, in no apparent distress - Head Head exam: Present: atraumatic, normocephalic, normal inspection - Eye Eye exam: Present: normal appearance - ENT ENT exam: Present: normal exam, normal orophraynx, mucous membranes moist - Neck Neck exam: Present: normal inspection, full ROM. Absent: tenderness, meningismus, lymphadenopathy, thyromegaly - Respiratory Respiratory exam: Present: normal lung sounds bilaterally. Absent: respiratory distress, wheezes, rales, rhonchi, stridor, chest wall tenderness, accessory muscle use, decreased breath sounds, prolonged expiratory - Cardiovascular Cardiovascular Exam: Present: regular rate, normal rhythm, normal heart sounds - GI/Abdominal GI/Abdominal exam: Present: soft, normal bowel sounds. Absent: distended, tenderness, guarding, rebound, rigid, organomegaly, mass, bruit, pulsatile mass, hernia - Extremities Exam Extremities exam: Present: normal inspection, full ROM, normal capillary refill. Absent: pedal edema, calf tenderness - Back Exam Back exam: Present: normal inspection, full ROM. Absent: tenderness, CVA tenderness (R), CVA tenderness (L), muscle spasm, paraspinal tenderness, vertebral tenderness - Neurological Exam Neurological exam: Present: alert, oriented X3, CN II-XII intact, normal gait, reflexes normal - Skin Skin exam: Present: warm, intact, normal color ED Course Vital Signs 02/27/18 14:51 Temperature 97.6 F Pulse Rate 77 Respiratory 18 Rate Blood Pressure 129/83 O2 Sat by Pulse 97 Oximetry Critical care attestation.: If time is entered above; I have spent that time in minutes in the direct care of this critically ill patient, excluding procedure time. ED Disposition Clinical Impression: Headache, Migraine Disposition: DC-01 TO HOME OR SELFCARE Is pt being admited?: No Condition: Stable Instructions: Acute Headache (ED) Referrals: PRIMARY CARE, [Primary Care Provider] - 3-5 Days
== END 2018-02-27 15:35 | disposition home or self-care (01) ==
LOC: ED 14:43

== ENCOUNTER 2018-03-03 13:44 | Emergency (ER) | payer MEDICARE ==
[2018-03-03 14:39] VITALS: BP 120/79
[2018-03-03] MEDS ORDERED: IBUPROFEN PO ONE (14:57)
--- NOTE | 2018-03-03 15:01 | Emergency Department Report ---
ED Recheck HPI - General Chief Complaint: Headache Stated Complaint: HEADACHE Time Seen by Provider: 03/03/18 14:53 Source: patient Mode of arrival: Ambulatory Limitations: No Limitations - History of Present Illness MD Complaint: other (HERE DAILY WITH HEADACHE; HAS NEURO APPNT IN MAR) Symptoms Since Prior Visit: no new symptoms Associated Symptoms: none - Related Data Previous Rx's Medication Instructions Recorded Last Taken Type ALBUTEROL Inhaler (OR & NICU) 2 puff IH QID PRN #1 inhalation 11/28/17 Unknown Rx [ProAir HFA Inhaler] ALBUTEROL Inhaler(NF) [VENTOLIN 2 puff IH Q4-6H PRN #1 inha 11/28/17 Unknown Rx Inhaler(NF)] Cetirizine HCl [ZyrTEC] 10 mg PO QDAY 21 Days #21 11/28/17 Unknown Rx tab.rapdis Fluticasone [Flonase] 1 spray NS QDAY 14 Days #1 bottle 11/28/17 Unknown Rx Pantoprazole [Protonix TAB] 20 mg PO DAILY #30 tablet.dr 11/28/17 Unknown Rx Prednisone [predniSONE 10 mg 10 mg PO .TAPER #1 tab.ds.pk 11/28/17 Unknown Rx (6-Day Pack, 21 Tabs)] Butalb/Acetaminophen/Caffeine 1 cap PO Q6HR PRN #10 cap 02/27/18 Unknown Rx [Fioricet 50-300-40 mg CAP] Allergies Allergy/AdvReac Type Severity Reaction Status Date / Time amoxicillin [From Augmentin] Allergy Unknown Verified 03/03/18 14:40 clavulanic acid Allergy Unknown Verified 03/03/18 14:40 [From Augmentin] gentamicin Allergy Unknown Verified 03/03/18 14:40 ED Review of Systems ROS: Stated complaint: SOB/MIGRANE Other details as noted in HPI Comment: All other systems reviewed and negative Constitutional: denies: chills Eyes: denies: eye pain Respiratory: denies: no symptoms reported, orthopnea Cardiovascular: denies: palpitations Endocrine: denies: flushing Gastrointestinal: denies: nausea Genitourinary: denies: urgency Musculoskeletal: denies: back pain Skin: denies: rash Neurological: as per HPI, headache (AND HUNGRY; COMES FROM SENIOR CARE). denies: weakness ED Past Medical Hx - Past Medical History Previous Medical History?: Yes Hx Hypertension: Yes Hx GERD: Yes Hx Arthritis: Yes Hx Headaches / Migraines: Yes Hx Psychiatric Treatment: Yes (depression) Hx COPD: Yes Hx HIV: Yes Additional medical history: sleep apnea blood in stool, migraine - Surgical History Past Surgical History?: Yes Additional Surgical History: tonsilectomy, hysterectomy, Broken right arm - Social History Smoking Status: Current Every Day Smoker Substance Use Type: None - Medications Home Medications: Home Medications Medication Instructions Recorded Confirmed Last Taken Type ALBUTEROL Inhaler (OR & NICU) 2 puff IH QID PRN #1 inhalation 11/28/17 Unknown Rx [ProAir HFA Inhaler] ALBUTEROL Inhaler(NF) [VENTOLIN 2 puff IH Q4-6H PRN #1 inha 11/28/17 Unknown Rx Inhaler(NF)] Cetirizine HCl [ZyrTEC] 10 mg PO QDAY 21 Days #21 11/28/17 Unknown Rx tab.rapdis Fluticasone [Flonase] 1 spray NS QDAY 14 Days #1 bottle 11/28/17 Unknown Rx Pantoprazole [Protonix TAB] 20 mg PO DAILY #30 tablet.dr 11/28/17 Unknown Rx Prednisone [predniSONE 10 mg 10 mg PO .TAPER #1 tab.ds.pk 11/28/17 Unknown Rx (6-Day Pack, 21 Tabs)] Butalb/Acetaminophen/Caffeine 1 cap PO Q6HR PRN #10 cap 02/27/18 Unknown Rx [Fioricet 50-300-40 mg CAP] ED Physical Exam - General Limitations: No Limitations General appearance: alert - Head Head exam: Present: atraumatic - Eye Eye exam: Present: normal appearance, PERRL Pupils: Present: normal accommodation - ENT ENT exam: Present: normal exam - Neck Neck exam: Present: normal inspection - Respiratory Respiratory exam: Present: normal lung sounds bilaterally - Cardiovascular Cardiovascular Exam: Present: regular rate - GI/Abdominal GI/Abdominal exam: Present: soft - Rectal Rectal exam: Present: deferred - Extremities Exam Extremities exam: Present: normal inspection - Back Exam Back exam: Present: normal inspection - Neurological Exam Neurological exam: Present: alert, oriented X3, CN II-XII intact, normal gait. Absent: motor sensory deficit - Psychiatric Psychiatric exam: Present: normal affect, normal mood ED Course Vital Signs 03/03/18 14:34 Temperature 97.5 F L Pulse Rate 79 Respiratory 16 Rate Blood Pressure 120/79 O2 Sat by Pulse 98 Oximetry ED Recheck MDM - Core Measures Measure Exclusions: not indicated - Medical Decision Making HERE DAILY FROM SENIOR CARE FOR HER HEADACHE AND TO ASK FOR FOOD NAD NEURO INTACT AMBULATORY Critical care attestation.: If time is entered above; I have spent that time in minutes in the direct care of this critically ill patient, excluding procedure time. ED Disposition Clinical Impression: Headache Disposition: DC-01 TO HOME OR SELFCARE Is pt being admited?: No Does the pt Need Aspirin: No Condition: Stable Additional Instructions: FOLLOW UP WITH [facility] PER ROUTINE Time of Disposition: 15:00
== END 2018-03-03 15:16 | disposition home or self-care (01) ==
LOC: ED 13:44
DX: R51 Headache (principal); I10 Essential (primary) hypertension; K21.9 Gastro-esophageal reflux disease without esophagitis; M19.90 Unspecified osteoarthritis, unspecified site; F32.9 Major depressive disorder, single episode, unspecified; J44.9 Chronic obstructive pulmonary disease, unspecified; F17.200 Nicotine dependence, unspecified, uncomplicated; Z90.89 Acquired absence of other organs; Z90.710 Acquired absence of both cervix and uterus; Z88.1 Allergy status to other antibiotic agents
CPT/HCPCS: 99282

== ENCOUNTER 2018-03-08 16:43 | Emergency (ER) | payer MEDICARE ==
[2018-03-08] MEDS ORDERED: FIORICET PO ONE (17:46)
--- NOTE | 2018-03-08 17:48 | Emergency Department Report ---
ED Recheck HPI - General Chief Complaint: Headache Stated Complaint: HEADACHE Time Seen by Provider: 03/08/18 17:45 Source: patient Mode of arrival: Ambulatory Limitations: No Limitations - Related Data Previous Rx's Medication Instructions Recorded Last Taken Type ALBUTEROL Inhaler (OR & NICU) 2 puff IH QID PRN #1 inhalation 11/28/17 Unknown R x [ProAir HFA Inhaler] ALBUTEROL Inhaler(NF) [VENTOLIN 2 puff IH Q4-6H PRN #1 inha 11/28/17 Unknown Rx Inhaler(NF)] Cetirizine HCl [ZyrTEC] 10 mg PO QDAY 21 Days #21 11/28/17 Unknown Rx tab.rapdis Pantoprazole [Protonix TAB] 20 mg PO DAILY #30 tablet.dr 11/28/17 Unknown Rx Prednisone [predniSONE 10 mg 10 mg PO .TAPER #1 tab.ds.pk 11/28/17 Unknown Rx (6-Day Pack, 21 Tabs)] Butalb/Acetaminophen/Caffeine 1 cap PO Q6HR PRN #10 cap 03/08/18 Unknown Rx [Fioricet 50-300-40 mg CAP] Allergies Allergy/AdvReac Type Severity Reaction Status Date / Time amoxicillin [From Augmentin] Allergy Unknown Verified 03/03/18 14:40 clavulanic acid Allergy Unknown Verified 03/03/18 14:40 [From Augmentin] gentamicin Allergy Unknown Verified 03/03/18 14:40 ED Review of Systems ROS: Stated complaint: HEADACHE Other details as noted in HPI Comment: All other systems reviewed and negative Constitutional: denies: chills Eyes: denies: eye pain ENT: denies: throat pain Respiratory: denies: cough Cardiovascular: denies: dyspnea on exertion Endocrine: denies: flushing Gastrointestinal: denies: nausea Genitourinary: denies: urgency Musculoskeletal: denies: back pain Skin: denies: rash Neurological: as per HPI, headache, other (OUT OF HER MEDS) ED Past Medical Hx - Past Medical History Previous Medical History?: Yes Hx Hypertension: Yes Hx GERD: Yes Hx Arthritis: Yes Hx Headaches / Migraines: Yes Hx Psychiatric Treatment: Yes (depression) Hx COPD: Yes Hx HIV: Yes Additional medical history: sleep apnea blood in stool, migraine - Surgical History Past Surgical History?: Yes Additional Surgical History: tonsilectomy, hysterectomy, Broken right arm - Social History Smoking Status: Current Every Day Smoker Substance Use Type: Prescribed - Medications Home Medications: Home Medications Medication Instructions Recorded Confirmed Last Taken Type ALBUTEROL Inhaler (OR & NICU) 2 puff IH QID PRN #1 inhalation 11/28/17 Unknown Rx [ProAir HFA Inhaler] ALBUTEROL Inhaler(NF) [VENTOLIN 2 puff IH Q4-6H PRN #1 inha 11/28/17 Unknown Rx Inhaler(NF)] Cetirizine HCl [ZyrTEC] 10 mg PO QDAY 21 Days #21 11/28/17 Unknown Rx tab.rapdis Pantoprazole [Protonix TAB] 20 mg PO DAILY #30 tablet.dr 11/28/17 Unknown Rx Prednisone [predniSONE 10 mg 10 mg PO .TAPER #1 tab.ds.pk 11/28/17 Unknown Rx (6-Day Pack, 21 Tabs)] Butalb/Acetaminophen/Caffeine 1 cap PO Q6HR PRN #10 cap 03/08/18 Unknown Rx [Fioricet 50-300-40 mg CAP] ED Physical Exam - General Limitations: No Limitations General appearance: alert, in no apparent distress - Head Head exam: Present: atraumatic - Eye Eye exam: Present: normal appearance, PERRL Pupils: Present: normal accommodation - ENT ENT exam: Present: mucous membranes moist - Neck Neck exam: Present: normal inspection - Respiratory Respiratory exam: Present: normal lung sounds bilaterally - Cardiovascular Cardiovascular Exam: Present: regular rate - GI/Abdominal GI/Abdominal exam: Present: soft, normal bowel sounds - Rectal Rectal exam: Present: deferred - Extremities Exam Extremities exam: Present: normal inspection, full ROM - Back Exam Back exam: Present: normal inspection, full ROM - Neurological Exam Neurological exam: Present: alert, oriented X3, normal gait - Psychiatric Psychiatric exam: Present: normal affect, normal mood - Skin Skin exam: Present: warm, dry ED Course Vital Signs 03/08/18 16:51 Temperature 97.9 F Pulse Rate 75 Respiratory 16 Rate Blood Pressure 126/78 O2 Sat by Pulse 97 Oximetry ED Recheck MDM - Core Measures Measure Exclusions: not indicated - Medical Decision Making WELL KNOWN TO US 5TH VISIT THIS MONTH [place] - SHE COMES HERE FOR HEADACHE SHE TELLS ME SHE IS OUT OF HER MEDICATIONS MEDICATED FOR PAIN DC HOME DISCUSSED WITH PT THE USE OF HER PCP Critical care attestation.: If time is entered above; I have spent that time in minutes in the direct care of this critically ill patient, excluding procedure time. ED Disposition Clinical Impression: Headache, Medication refill, Malingering Disposition: DC-01 TO HOME OR SELFCARE Is pt being admited?: No Does the pt Need Aspirin: No Condition: Stable Additional Instructions: MS LIZ BAZAN GIVEN YOU A REFERRAL BELOW TO [facility] PLEASE FOLLOW UP Prescriptions: Butalb/Acetaminophen/Caffeine [Fioricet 50-300-40 mg CAP] 1 cap PO Q6HR PRN #10 cap PRN Reason: Headache Referrals: CAROL LE MD [Staff Physician] - 3-5 Days Time of Disposition: 17:47
[2018-03-08 18:41] VITALS: BP 133/69
== END 2018-03-08 18:40 | disposition home or self-care (01) ==
LOC: ED 16:43
DX: R51 Headache (principal); Z76.5 Malingerer [conscious simulation]; I10 Essential (primary) hypertension; K21.9 Gastro-esophageal reflux disease without esophagitis; M19.90 Unspecified osteoarthritis, unspecified site; G43.909 Migraine, unspecified, not intractable, without status migrainosus; F32.9 Major depressive disorder, single episode, unspecified; J44.9 Chronic obstructive pulmonary disease, unspecified; F17.200 Nicotine dependence, unspecified, uncomplicated

== ENCOUNTER 2018-03-20 13:39 | Emergency (ER) | payer MEDICARE ==
--- NOTE | 2018-03-20 14:24 | Emergency Department Report ---
ED General Adult HPI - General Chief complaint: Headache Stated complaint: HEADACHE Time Seen by Provider: 03/20/18 14:19 Source: EMS Mode of arrival: Ambulatory Limitations: No Limitations - History of Present Illness Initial comments: Patient is 67-year-old female, familiar to me and to ER staff due to multiple ER visits for headache migraine. Patient presented to the ER complaining of headache, similar to her previous headaches. Patient is out of for Fioricet. Patient also stated that she's been having rectal bleeding on and off for the last 2 month and she is asking for a GI referral. Patient denied any dizziness, weakness, numbness or tingling sensation. No bowel or bladder incontinence. Patient also denies any chest pain or shortness of breath. - Related Data Previous Rx's Medication Instructions Recorded Last Taken Type ALBUTEROL Inhaler (OR & NICU) 2 puff IH QID PRN #1 inhalation 11/28/17 Unknown Rx [ProAir HFA Inhaler] ALBUTEROL Inhaler(NF) [VENTOLIN 2 puff IH Q4-6H PRN #1 inha 11/28/17 Unknown Rx Inhaler(NF)] Cetirizine HCl [ZyrTEC] 10 mg PO QDAY 21 Days #21 11/28/17 Unknown Rx tab.rapdis Pantoprazole [Protonix TAB] 20 mg PO DAILY #30 tablet.dr 11/28/17 Unknown Rx Prednisone [predniSONE 10 mg 10 mg PO .TAPER #1 tab.ds.pk 11/28/17 Unknown Rx (6-Day Pack, 21 Tabs)] Butalb/Acetaminophen/Caffeine 1 cap PO Q6HR PRN #10 cap 03/08/18 Unknown Rx [Fioricet 50-300-40 mg CAP] Allergies Allergy/AdvReac Type Severity Reaction Status Date / Time amoxicillin [From Augmentin] Allergy Unknown Verified 03/03/18 14:40 clavulanic acid Allergy Unknown Verified 03/03/18 14:40 [From Augmentin] gentamicin Allergy Unknown Verified 03/03/18 14:40 ED Review of Systems ROS: Stated complaint: HEADACHE Other details as noted in HPI Comment: All other systems reviewed and negative Constitutional: denies: chills, fever Respiratory: denies: cough, orthopnea, shortness of breath, SOB with exertion, SOB at rest, wheezing Cardiovascular: denies: chest pain, palpitations Gastrointestinal: melena. denies: abdominal pain, nausea, vomiting, diarrhea, constipation, hematemesis, hematochezia Genitourinary: denies: hematuria Musculoskeletal: denies: back pain Neurological: headache. denies: weakness, numbness, paresthesias, confusion, abnormal gait ED Past Medical Hx - Past Medical History Hx Hypertension: Yes Hx GERD: Yes Hx Arthritis: Yes Hx Headaches / Migraines: Yes Hx Psychiatric Treatment: Yes (depression) Hx COPD: Yes Hx HIV: Yes Additional medical history: sleep apnea blood in stool, migraine - Surgical History Additional Surgical History: tonsilectomy, hysterectomy, Broken right arm - Social History Smoking Status: Current Every Day Smoker Substance Use Type: None - Medications Home Medications: Home Medications Medication Instructions Recorded Confirmed Last Taken Type ALBUTEROL Inhaler (OR & NICU) 2 puff IH QID PRN #1 inhalation 11/28/17 Unknown Rx [ProAir HFA Inhaler] ALBUTEROL Inhaler(NF) [VENTOLIN 2 puff IH Q4-6H PRN #1 inha 11/28/17 Unknown Rx Inhaler(NF)] Cetirizine HCl [ZyrTEC] 10 mg PO QDAY 21 Days #21 11/28/17 Unknown Rx tab.rapdis Pantoprazole [Protonix TAB] 20 mg PO DAILY #30 tablet.dr 11/28/17 Unknown Rx Prednisone [predniSONE 10 mg 10 mg PO .TAPER #1 tab.ds.pk 11/28/17 Unknown Rx (6-Day Pack, 21 Tabs)] Butalb/Acetaminophen/Caffeine 1 cap PO Q6HR PRN #10 cap 03/08/18 Unknown Rx [Fioricet 50-300-40 mg CAP] ED Physical Exam - General Limitations: No Limitations General appearance: alert, in no apparent distress - Head Head exam: Present: atraumatic, normocephalic, normal inspection - Eye Eye exam: Present: normal appearance - ENT ENT exam: Present: normal exam, normal orophraynx, mucous membranes moist - Neck Neck exam: Present: normal inspection, full ROM. Absent: tenderness, meningismus, lymphadenopathy, thyromegaly - Respiratory Respiratory exam: Present: normal lung sounds bilaterally. Absent: respiratory distress, wheezes, rales, rhonchi, stridor, chest wall tenderness, accessory muscle use, decreased breath sounds, prolonged expiratory - Cardiovascular Cardiovascular Exam: Present: regular rate, normal rhythm, normal heart sounds - GI/Abdominal GI/Abdominal exam: Present: soft, normal bowel sounds. Absent: distended, tenderness, guarding, rebound, rigid, organomegaly, mass, bruit, pulsatile mass, hernia - Extremities Exam Extremities exam: Present: normal inspection, full ROM, normal capillary refill. Absent: tenderness, pedal edema, calf tenderness - Back Exam Back exam: Present: normal inspection, full ROM. Absent: tenderness, CVA tenderness (R), CVA tenderness (L), muscle spasm, paraspinal tenderness, vertebral tenderness, rash noted - Neurological Exam Neurological exam: Present: alert, oriented X3, CN II-XII intact, normal gait, reflexes normal - Skin Skin exam: Present: warm, intact, normal color ED Course Vital Signs 03/20/18 13:49 Temperature 98.2 F Pulse Rate 89 Respiratory 20 Rate Blood Pressure 120/74 O2 Sat by Pulse 96 Oximetry ED Medical Decision Making - Lab Data Result diagrams: 03/20/18 15:41 - Medical Decision Making Patient is 67-year-old female, familiar to me and to ER staff due to multiple ER visits for headache migraine. Patient presented to the ER complaining of headache, similar to her previous headaches. Patient is out of for Fioricet. Patient also stated that she's been having rectal bleeding on and off for the last 2 month and she is asking for a GI referral. Patient denied any dizziness, weakness, numbness or tingling sensation. No bowel or bladder incontinence. Patient also denies any chest pain or shortness of breath. Patient hemoglobin is 13.6. No active bleeding. Patient is given [facility] for follow-up. I advised the patient to follow-up with her primary care physician in the next 2-3 days. Critical care attestation.: If time is entered above; I have spent that time in minutes in the direct care of this critically ill patient, excluding procedure time. ED Disposition Clinical Impression: Headache, Migraines, GI bleed Disposition: TO HOME OR SELFCARE Is pt being admited?: No Condition: Stable Instructions: Rectal Bleeding (ED), Acute Headache (ED) Referrals: [facility] [Provider Group] - 3-5 Days ROBERT BURCIAGA [Primary Care Provider] - 3-5 Days
[2018-03-20 15:37] VITALS: BP 120/74
[2018-03-20 16:19] LABS: Basophils % (Auto) 0.6 % (0.0-1.8); Eosinophils # (Auto) 0.2 K/mm3 (0.0-0.4); Eosinophils % (Auto) 2.6 % (0.0-4.3); Hematocrit 40.6 % (30.3-42.9); Hemoglobin 13.5 gm/dl (10.1-14.3); Lymphocytes # (Auto) 1.6 K/mm3 (1.2-5.4); Lymphocytes % (Auto) 22.4 % (13.4-35.0); Mean Corpuscular HGB Conc 33 % (30-34); Mean Corpuscular Volume 97 fl (79-97); Monocytes # (Auto) 0.8 K/mm3 (0.0-0.8); Monocytes % (Auto) 10.7 % (0.0-7.3); Platelet Count 207 K/mm3 (140-440); Red Blood Count 4.19 M/mm3 (3.65-5.03); Red Cell Distribution Width 15.2 % (13.2-15.2)
[2018-03-20 16:29] LABS: INR 0.96 (0.87-1.13)
[2018-03-20 16:30] LABS: Partial Thromboplastin Time 27.6 Sec. (24.2-36.6)
[2018-03-20 16:43] LABS: Alanine Aminotransferase 19 units/L (7-56); Albumin 4.3 g/dL (3.9-5); BUN/Creatinine Ratio 32; Blood Urea Nitrogen 16 mg/dL (7-17); Calcium 9.2 mg/dL (8.4-10.2); Hemolysis Index 42
== END 2018-03-20 16:39 | disposition home or self-care (01) ==
LOC: ED 13:39
DX: G43.909 Migraine, unspecified, not intractable, without status migrainosus (principal); K62.5 Hemorrhage of anus and rectum; K21.9 Gastro-esophageal reflux disease without esophagitis; F32.9 Major depressive disorder, single episode, unspecified; F17.200 Nicotine dependence, unspecified, uncomplicated; I10 Essential (primary) hypertension; J44.9 Chronic obstructive pulmonary disease, unspecified; Z21 Asymptomatic human immunodeficiency virus [HIV] infection status; G47.30 Sleep apnea, unspecified; Z90.49 Acquired absence of other specified parts of digestive tract; Z90.710 Acquired absence of both cervix and uterus; Z88.1 Allergy status to other antibiotic agents
CPT/HCPCS: 36415; 80053; 85025; 85610; 85730; 99283

== ENCOUNTER 2018-05-09 11:15 | Emergency (ER) | payer MEDICARE ==
--- NOTE | 2018-05-09 11:39 | Emergency Department Report ---
Chief Complaint: GI Bleed Stated Complaint: MIGRANES/BLACK STOOL Time Seen by Provider: 05/09/18 11:37 - HPI History of Present Illness: well known to us here with black stools today HIV VSS NAD ambulatory MSE completed MSE screening note: Focused history and physical exam performed. Due to findings the following was ordered: ED Disposition for MSE Condition: Stable
[2018-05-09 11:40] VITALS: BP 130/78
[2018-05-09 12:33] LABS: Hematocrit 41.1 % (30.3-42.9); Mean Corpuscular HGB Conc 34 % (30-34); Mean Corpuscular Volume 99 fl (79-97); Platelet Count 213 K/mm3 (140-440); Red Blood Count 4.14 M/mm3 (3.65-5.03); Red Cell Distribution Width 14.5 % (13.2-15.2)
[2018-05-09 12:57] LABS: BUN/Creatinine Ratio 35; Blood Urea Nitrogen 21 mg/dL (7-17); Calcium 9.3 mg/dL (8.4-10.2); Hemolysis Index 10
--- NOTE | 2018-05-09 14:50 | Emergency Department Report ---
ED General Adult HPI - General Chief complaint: GI Bleed Stated complaint: MIGRANES/BLACK STOOL Time Seen by Provider: 05/09/18 11:37 Source: patient Mode of arrival: Ambulatory Limitations: No Limitations - History of Present Illness Initial comments: Patient is 67-year-old female, well-known to me. With multiple emergency room visits for GI bleed and headache for which she usually ask for narcotics manually Fioricets. Patient presented to the ER stating that she has been having black stool for the last month. Patient brought a paper stating that she had endoscopy at [facility] which she did not show any active ulcer or bleeding. Patient stated that she's been having a headache and she wanted a refill for her Fioricet. Patient denied any weakness, numbness or tingling sensation. Severity scale (0 -10): 8 - Related Data Previous Rx's Medication Instructions Recorded Last Taken Type ALBUTEROL Inhaler (OR & NICU) 2 puff IH QID PRN #1 inhalation 11/28/17 Unknown Rx [ProAir HFA Inhaler] ALBUTEROL Inhaler(NF) [VENTOLIN 2 puff IH Q4-6H PRN #1 inha 11/28/17 Unknown Rx Inhaler(NF)] Cetirizine HCl [ZyrTEC] 10 mg PO QDAY 21 Days #21 11/28/17 Unknown Rx tab.rapdis Pantoprazole [Protonix TAB] 20 mg PO DAILY #30 tablet.dr 11/28/17 Unknown Rx Prednisone [predniSONE 10 mg 10 mg PO .TAPER #1 tab.ds.pk 11/28/17 Unknown Rx (6-Day Pack, 21 Tabs)] Butalb/Acetaminophen/Caffeine 1 cap PO Q6HR PRN #10 cap 03/08/18 Unknown Rx [Fioricet 50-300-40 mg CAP] Butalb/Acetaminophen/Caffeine 1 cap PO Q6HR PRN #14 cap 03/20/18 Unknown Rx [Fioricet 50-300-40 mg CAP] Allergies Allergy/AdvReac Type Severity Reaction Status Date / Time amoxicillin [From Augmentin] Allergy Unknown Verified 03/03/18 14:40 clavulanic acid Allergy Unknown Verified 03/03/18 14:40 [From Augmentin] gentamicin Allergy Unknown Verified 03/03/18 14:40 ED Review of Systems ROS: Stated complaint: MIGRANES/BLACK STOOL Other details as noted in HPI Comment: All other systems reviewed and negative Constitutional: denies: chills, fever Respiratory: denies: cough, orthopnea, shortness of breath, SOB with exertion, SOB at rest Cardiovascular: denies: chest pain, palpitations Gastrointestinal: denies: abdominal pain, nausea, vomiting Neurological: headache (chronic) ED Past Medical Hx - Past Medical History Previous Medical History?: Yes Hx Hypertension: Yes Hx GERD: Yes Hx Arthritis: Yes Hx Headaches / Migraines: Yes Hx Psychiatric Treatment: Yes (depression) Hx COPD: Yes Hx HIV: Yes Additional medical history: sleep apnea blood in stool, migraine - Surgical History Past Surgical History?: Yes Additional Surgical History: tonsilectomy, hysterectomy, Broken right arm - Social History Smoking Status: Current Every Day Smoker Substance Use Type: None - Medications Home Medications: Home Medications Medication Instructions Recorded Confirmed Last Taken Type ALBUTEROL Inhaler (OR & NICU) 2 puff IH QID PRN #1 inhalation 11/28/17 Unknown Rx [ProAir HFA Inhaler] ALBUTEROL Inhaler(NF) [VENTOLIN 2 puff IH Q4-6H PRN #1 inha 11/28/17 Unknown Rx Inhaler(NF)] Cetirizine HCl [ZyrTEC] 10 mg PO QDAY 21 Days #21 11/28/17 Unknown Rx tab.rapdis Pantoprazole [Protonix TAB] 20 mg PO DAILY #30 tablet.dr 11/28/17 Unknown Rx Prednisone [predniSONE 10 mg 10 mg PO .TAPER #1 tab.ds.pk 11/28/17 Unknown Rx (6-Day Pack, 21 Tabs)] Butalb/Acetaminophen/Caffeine 1 cap PO Q6HR PRN #10 cap 03/08/18 Unknown Rx [Fioricet 50-300-40 mg CAP] Butalb/Acetaminophen/Caffeine 1 cap PO Q6HR PRN #14 cap 03/20/18 Unknown Rx [Fioricet 50-300-40 mg CAP] ED Physical Exam - General Limitations: No Limitations General appearance: alert, in no apparent distress - Head Head exam: Present: atraumatic, normocephalic, normal inspection - Eye Eye exam: Present: normal appearance, PERRL - ENT ENT exam: Present: normal exam, normal orophraynx, mucous membranes moist - Respiratory Respiratory exam: Present: normal lung sounds bilaterally. Absent: respiratory distress, wheezes, rales, rhonchi, stridor, chest wall tenderness, accessory muscle use, decreased breath sounds, prolonged expiratory - Cardiovascular Cardiovascular Exam: Present: regular rate, normal rhythm, normal heart sounds - GI/Abdominal GI/Abdominal exam: Present: soft, normal bowel sounds. Absent: distended, tenderness, guarding, rebound, rigid, organomegaly, mass, bruit, pulsatile mass, hernia - Rectal Rectal exam: Present: deferred - Extremities Exam Extremities exam: Present: normal inspection, full ROM, normal capillary refill. Absent: pedal edema, calf tenderness - Back Exam Back exam: Present: normal inspection, full ROM. Absent: CVA tenderness (R), CVA tenderness (L), muscle spasm, paraspinal tenderness, vertebral tenderness - Neurological Exam Neurological exam: Present: alert, oriented X3, CN II-XII intact, normal gait, reflexes normal - Skin Skin exam: Present: warm, intact, normal color ED Course Vital Signs 05/09/18 11:38 Temperature 97.3 F L Pulse Rate 93 H Respiratory 18 Rate Blood Pressure 130/78 O2 Sat by Pulse 100 Oximetry ED Medical Decision Making - Lab Data Result diagrams: 05/09/18 12:13 05/09/18 12:13 - Medical Decision Making Patient is 67-year-old female, well-known to me. With multiple emergency room visits for GI bleed and headache for which she usually ask for narcotics manually Fioricets. Patient presented to the ER stating that she has been having black stool for the last month. Patient brought a paper stating that she had endoscopy at [facility] which she did not show any active ulcer or bleeding. Patient stated that she's been having a headache and she wanted a refill for her Fioricet. Patient denied any weakness, numbness or tingling sensation. Patient labs reviewed and is unremarkable with a stable hemoglobin. Unable to refill patient Fioricet and advised her to follow-up with her primary care physician for that. I gave her [facility] to follow-up for her GI symptoms. I also advised her to return to the ER if her symptoms get worse. Critical care attestation.: If time is entered above; I have spent that time in minutes in the direct care of this critically ill patient, excluding procedure time. ED Disposition Clinical Impression: GI bleed, Chronic headache Disposition: DC-01 TO HOME OR SELFCARE Is pt being admited?: No Condition: Stable Instructions: Gastrointestinal Bleeding (ED), Migraine Headache (ED) Referrals: [facility] [Provider Group] - 3-5 Days Forms: Accompanied Note
== END 2018-05-09 15:30 | disposition home or self-care (01) ==
LOC: ED 11:15
DX: K92.2 Gastrointestinal hemorrhage, unspecified (principal); G43.909 Migraine, unspecified, not intractable, without status migrainosus; J44.9 Chronic obstructive pulmonary disease, unspecified; G47.30 Sleep apnea, unspecified; F17.200 Nicotine dependence, unspecified, uncomplicated; Z90.710 Acquired absence of both cervix and uterus; Z90.89 Acquired absence of other organs; Z21 Asymptomatic human immunodeficiency virus [HIV] infection status; Z88.1 Allergy status to other antibiotic agents
CPT/HCPCS: 36415; 80048; 85027; 99283

== ENCOUNTER 2019-04-14 11:21 | Emergency (ER) | payer MEDICARE ==
--- NOTE | 2019-04-14 11:45 | Event Note ---
ED Screening Note ED Screening Note: 68 yo female with hx of HIV, MDD, parkinson's disease, migraine headache presents with diarrhea. 3 months chest pain This initial assessment/diagnostic orders/clinical plan/treatment(s) is/are subject to change based on patients health status, clinical progression and re- assessment by fellow clinical providers in the ED. Further treatment and workup at subsequent clinical providers discretion. Patient/guardian urged not to elope from the ED as their condition may be serious if not clinically assessed and managed. Initial orders include: code sepsis initiated
[2019-04-14] MEDS ORDERED: SODIUM CHLORIDE 0.9% 1000 ML 1,000 ML IV ONE ×2 (12:00→13:29)
[2019-04-14] MEDS ORDERED: SODIUM CHLORIDE 0.9% 1000 ML 2,000 ML IV ONE (12:00)
[2019-04-14 12:01] LABS: Basophils # (Auto) 0.1 K/mm3 (0.0-0.1); Basophils % (Auto) 0.8 % (0.0-1.8); Eosinophils % (Auto) 0.1 % (0.0-4.3); Hematocrit 34.2 % (30.3-42.9); Hemoglobin 11.2 gm/dl (10.1-14.3); Lymphocytes # (Auto) 1.5 K/mm3 (1.2-5.4); Lymphocytes % (Auto) 14.8 % (13.4-35.0); Mean Corpuscular HGB Conc 33 % (30-34); Mean Corpuscular Volume 88 fl (79-97); Monocytes # (Auto) 0.8 K/mm3 (0.0-0.8); Monocytes % (Auto) 8.3 % (0.0-7.3); Platelet Count 665 K/mm3 (140-440); Red Blood Count 3.89 M/mm3 (3.65-5.03); Red Cell Distribution Width 15.3 % (13.2-15.2)
[2019-04-14] MEDS ORDERED: METOCLOPRAMIDE 10 MG/2 ML INJ IV ONE (12:01)
[2019-04-14] MEDS ORDERED: diphenhydrAMINE 50 MG/ML VIAL IV ONE (12:01)
[2019-04-14] MEDS ORDERED: LIDOCAINE (4%) 40 MG/ML TOPICAL SOLN 50 ML BOTTLE TP ONE (12:01)
--- NOTE | 2019-04-14 12:01 | Emergency Department Report ---
ED General Adult HPI - General Chief complaint: Nausea/Vomiting/Diarrhea Stated complaint: DIARRHEA/MIGRANE/CP Time Seen by Provider: 04/14/19 11:47 Source: patient, RN notes reviewed, old records reviewed Mode of arrival: Ambulatory Limitations: No Limitations - History of Present Illness Initial comments: The patient is a 68-year-old female. The patient is not known to myself previously. The patient typically follows with Dr. Neves, at [facility] clinic. The patient has a history of COPD, depression, migraine, hysterectomy, GERD, gastritis The patient presents to the ER with multiple complaints. Her first complaint is diarrhea. It is present for 3 days. It is described as brown. It is nonbloody. She has had 2 episodes of bowel movements in the past 24 hours. Her next complaint is migraine headache. The headache is frontal and bit emporal. It is described as throbbing, with sensitivity to lights. The headache has been constant, it is not maximal in intensity at onset, it is not the worst headache of her life, there is no neck pain or neck stiffness. There is no nausea, vomiting. There were no irritative or obstructive urinary symptoms. Her next complaint is chest pain. The chest pain is central and left-sided. It does not radiate to the back, arms or neck. There is no vomiting, diaphoresis, or exertional shortness of breath. She denies DVT and pulmonary embolism risk factors. -: Gradual, days(s) Location: head, chest Quality: other Consistency: other Improves with: other Worsens with: other Associated Symptoms: other - Related Data Previous Rx's Medication Instructions Recorded Last Taken Type ALBUTEROL Inhaler(NF) [VENTOLIN 2 puff IH Q4-6H PRN #1 inha 11/28/17 Unknown Rx Inhaler(NF)] Albuterol INH(or & Nicu Only) 2 puff IH QID PRN #1 inhalation 11/28/17 Unknown Rx [ProAir HFA Inhaler] Cetirizine HCl [ZyrTEC 10mg rapdis] 10 mg PO QDAY 21 Days #21 11/28/17 Unknown Rx tab.rapdis Pantoprazole [Protonix TAB] 20 mg PO DAILY #30 tablet.dr 11/28/17 Unknown Rx Prednisone [predniSONE 10 mg 10 mg PO .TAPER #1 tab.ds.pk 11/28/17 Unknown Rx (6-Day Pack, 21 Tabs)] Butalb/Acetaminophen/Caffeine 1 cap PO Q6HR PRN #10 cap 03/08/18 Unknown Rx [Fioricet 50-300-40 mg CAP] Butalb/Acetaminophen/Caffeine 1 cap PO Q6HR PRN #14 cap 03/20/18 Unknown Rx [Fioricet 50-300-40 mg CAP] Acetaminophen [Tylenol] 325 mg PO Q4HR PRN #15 capsule 04/14/19 Unknown Rx Albuterol Sulfate [Proair 90 mcg IH Q4HR PRN #2 aer.pow.ba 04/14/19 Unknown Rx Respiclick] Ibuprofen [Motrin] 400 mg PO Q8H PRN #20 tablet 04/14/19 Unknown Rx levoFLOXacin [Levaquin TAB] 500 mg PO QDAY #4 tablet 04/14/19 Unknown Rx Allergies Allergy/AdvReac Type Severity Reaction Status Date / Time amoxicillin [From Augmentin] Allergy Unknown Verified 04/14/19 11:23 clavulanic acid Allergy Unknown Verified 04/14/19 11:23 [From Augmentin] gentamicin Allergy Unknown Verified 04/14/19 11:23 ED Review of Systems ROS: Stated complaint: DIARRHEA/MIGRANE/CP Other details as noted in HPI Constitutional: malaise. denies: fever Eyes: denies: eye discharge ENT: congestion Respiratory: cough Cardiovascular: chest pain Gastrointestinal: diarrhea. denies: nausea, vomiting, constipation, hematemesis, melena, hematochezia Genitourinary: denies: dysuria Musculoskeletal: denies: myalgia Neurological: weakness Hematological/Lymphatic: denies: easy bleeding ED Past Medical Hx - Past Medical History Hx Hypertension: Yes Hx GERD: Yes Hx Arthritis: Yes Hx Headaches / Migraines: Yes Hx Psychiatric Treatment: Yes (depression) Hx COPD: Yes Hx HIV: Yes Additional medical history: sleep apnea blood in stool, migraine - Surgical History Additional Surgical History: tonsilectomy, hysterectomy, Broken right arm - Social History Smoking Status: Never Smoker Substance Use Type: None - Medications Home Medications: Home Medications Medication Instructions Recorded Confirmed Last Taken Type ALBUTEROL Inhaler(NF) [VENTOLIN 2 puff IH Q4-6H PRN #1 inha 11/28/17 Unknown Rx Inhaler(NF)] Albuterol INH(or & Nicu Only) 2 puff IH QID PRN #1 inhalation 11/28/17 Unknown Rx [ProAir HFA Inhaler] Cetirizine HCl [ZyrTEC 10mg rapdis] 10 mg PO QDAY 21 Days #21 11/28/17 Unknown Rx tab.rapdis Pantoprazole [Protonix TAB] 20 mg PO DAILY #30 tablet.dr 11/28/17 Unknown Rx Prednisone [predniSONE 10 mg 10 mg PO .TAPER #1 tab.ds.pk 11/28/17 Unknown Rx (6-Day Pack, 21 Tabs)] Butalb/Acetaminophen/Caffeine 1 cap PO Q6HR PRN #10 cap 03/08/18 Unknown Rx [Fioricet 50-300-40 mg CAP] Butalb/Acetaminophen/Caffeine 1 cap PO Q6HR PRN #14 cap 03/20/18 Unknown Rx [Fioricet 50-300-40 mg CAP] Acetaminophen [Tylenol] 325 mg PO Q4HR PRN #15 capsule 04/14/19 Unknown Rx Albuterol Sulfate [Proair 90 mcg IH Q4HR PRN #2 aer.pow.ba 04/14/19 Unknown Rx Respiclick] Ibuprofen [Motrin] 400 mg PO Q8H PRN #20 tablet 04/14/19 Unknown Rx levoFLOXacin [Levaquin TAB] 500 mg PO QDAY #4 tablet 04/14/19 Unknown Rx ED Physical Exam - General Limitations: No Limitations, Other (During the entire history and 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 Absent: nystagmus - ENT ENT exam: Present: normal exam, normal orophraynx, mucous membranes moist, normal external ear exam - Neck Neck exam: Present: normal inspection, full ROM - Respiratory Respiratory exam: Present: normal lung sounds bilaterally, chest wall tenderness. Absent: respiratory distress - Cardiovascular Cardiovascular Exam: Present: normal rhythm, tachycardia, normal heart sounds. Absent: bradycardia, systolic murmur, diastolic murmur, rubs, gallop - GI/Abdominal GI/Abdominal exam: Present: soft, normal bowel sounds. Absent: distended, tenderness, guarding, rebound, rigid, pulsatile mass - Extremities Exam Extremities exam: Present: normal inspection, full ROM, other (2+ pulses noted in the bilateral upper and lower extremities. There is no palpable cord. nega tive Homans sign. Muscular compartments are soft. The pelvis is stable.). Absent: pedal edema, calf tenderness - Back Exam Back exam: Present: normal inspection, full ROM. Absent: tenderness, CVA tenderness (R), CVA tenderness (L), paraspinal tenderness, vertebral tenderness - Neurological Exam Neurological exam: Present: alert, oriented X3, other (There is no facial droop. The tongue is midline. Extraocular movements are intact bilaterally. There is 5 out of 5 strength in bilateral upper and lower extremities. Sensation is intact to light touch bilateral upper and lower extremities. There is no past-pointing. There is no pronator drift. There is normal [id number]-qvan. There is a normal gait.). Absent: motor sensory deficit - Psychiatric Psychiatric exam: Present: flat affect - Skin Skin exam: Present: warm ED Course Vital Signs 04/14/19 04/14/19 04/14/19 11:41 12:00 13:00 Temperature 97.3 F L Pulse Rate 115 H 95 H 93 H Respiratory 20 22 20 Rate Blood Pressure 84/54 Blood Pressure 91/37 89/53 [Left] O2 Sat by Pulse 95 97 97 Oximetry 04/14/19 04/14/19 04/14/19 14:00 16:10 18:00 Temperature Pulse Rate 98 H 97 H 96 H Respiratory 24 23 22 Rate Blood Pressure Blood Pressure 106/55 103/62 106/55 [Left] O2 Sat by Pulse 95 95 95 Oximetry - Reevaluation(s) Reevaluation #1: 04/14/19 13:34 Differential diagnosis, including but not limited to: Migraine headache, tension headache, cluster headache, enteritis, dehydration, urinary tract infection, costochondritis, acute coronary syndrome, pneumonia Assessment and plan: 68-year-old female with multiple complaints Complaints #1, "migraine headache." The patient is afebrile, with no meningeal signs, clinically sober, GCS of 15, with NIH score of 0, with no focal neurologic deficits. We will treat her symptoms. Her exam does not necessitate emergent neuroimaging. We will treat her headache supportively and symptomatically Complaints #2, chest pain EKG pending, x-ray of the chest suggest possible left lower lobe pneumonia/airspace disease, new when compared to prior studies, patient has a chronic cough secondary to COPD. She will be treated empirically with levaquin ( which should have both GI and pulmonary coverage, although clinically suspect that history of diarrhea is likely secondary to viral etiology.) Troponin pending,/negative, given months of symptoms, as per the [employer] clinical policy, myocardial infarction is very unlikely, troponin negative x1, symptoms present for greater than 8 hours, as per the aforementioned clinical policy, myocardial infarction may be ruled out with 1 set of cardiac enzymes. Does not endorse any DVT or pulmonary embolism risk factors and is low risk by Wells criteria. Tachycardia is likely secondary to dehydration, likely secondary to complaint #3. Complaint #3, diarrhea, found to be tachycardic and borderline hypotensive, although the patient is quite slight in stature. Laboratory studies show anion gap acidosis, which is likely secondary to bicarbonate losses from diarrhea. We will treat her with IV fluids, obtain urinalysis, and repeat basic metabolic panel. Continues to remain clinically sober at this time. 04/14/19 13:56 04/14/19 13:59 Reevaluation #2: 04/14/19 14:39 Blood pressure improved. IV fluids are infusing. Urinalysis and repeat basic metabolic panel are pending. Care will be transferred to the oncoming ER physician, Dr. Kaur, to follow-up on urinalysis and repeat basic metabolic panel. Assuming improvement in anion gap, and patient's blood pressure continues to remain improved, we would consider the patient suitable for trial of oral outpatient management. ED Medical Decision Making - Lab Data Result diagrams: 04/14/19 11:54 04/14/19 14:48 Vital Signs 04/14/19 04/14/19 04/14/19 11:41 12:00 13:00 Temperature 97.3 F L Pulse Rate 115 H 95 H 93 H Respiratory 20 22 20 Rate Blood Pressure 84/54 Blood Pressure 91/37 89/53 [Left] O2 Sat by Pulse 95 97 97 Oximetry Labs 04/14/19 04/14/19 04/14/19 11:54 11:54 12:02 WBC 10.1 RBC 3.89 Hgb 11.2 Hct 34.2 MCV 88 MCH 29 MCHC 33 RDW 15.3 H Plt Count 665 H Lymph % (Auto) 14.8 Zapata % (Auto) 8.3 H Eos % (Auto) 0.1 Baso % (Auto) 0.8 Lymph # 1.5 Zapata # 0.8 Eos # 0.0 Baso # 0.1 Seg Neutrophils % 76.0 H Seg Neutrophils # 7.7 PT 14.2 INR 1.09 Sodium 139 Potassium 3.8 Chloride 94.9 L Carbon Dioxide 19 L Anion Gap 29 BUN 23 H Creatinine 0.7 Estimated GFR > 60 BUN/Creatinine Ratio 33 Glucose 77 Calcium 9.4 Magnesium 1.90 Total Bilirubin 0.50 AST 17 ALT 12 Alkaline Phosphatase 85 Total Creatine Kinase 50 Troponin T < 0.010 Total Protein 8.0 Albumin 3.4 L Albumin/Globulin Ratio 0.7 Salicylates Acetaminophen 04/14/19 04/14/19 12:02 12:02 WBC RBC Hgb Hct MCV MCH MCHC RDW Plt Count Lymph % (Auto) Zapata % (Auto) Eos % (Auto) Baso % (Auto) Lymph # Zapata # Eos # Baso # Seg Neutrophils % Seg Neutrophils # PT INR Sodium Potassium Chloride Carbon Dioxide Anion Gap BUN Creatinine Estimated GFR BUN/Creatinine Ratio Glucose Calcium Magnesium Total Bilirubin AST ALT Alkaline Phosphatase Total Creatine Kinase Troponin T Total Protein Albumin Albumin/Globulin Ratio Salicylates < 0.3 L Acetaminophen < 5.0 L - EKG Data -: EKG Interpreted by Ny EKG shows normal: sinus rhythm Rate: normal - EKG Data 04/14/19 13:57 The EKG today shows a sinus rhythm, 89 bpm, there is a normal axis, the QTC is 446 ms, there is borderline poor R wave progression, and motion artifact, and atrial enlargement. The EKG is abnormal, but grossly unchanged from prior EKG from November 2017, it is not consistent with ST elevation myocardial infarction. - Radiology Data Radiology results: report reviewed, image reviewed CHEST 1 VIEW INDICATION: chest pain. COMPARISON: 11/26/2017 FINDINGS: Support devices: None. Heart: Within normal limits. Lungs/Pleura: Streaky left basilar airspace disease with small effusion/pleural thickening. Clear right lung. Additional findings: None. IMPRESSION: 1. Pulmonary findings as above. Signer Name: Alexi Mojica MD Signed: 04/14/2019 11:07 AM Workstation Name: [id number] Print Report Referring Physician: BRIGIDO ÁLVAREZ Patient Name: JESUS MCLEOD Date of : 1950 Sex: Female Report Date: 2017-11-26 Report Status: Finalized Findings [address] [address] XRay Report Signed Patient: JESUS MCLEOD MR#: [id number] : 1950 Acct:[id number] Age/Sex: 67 / F ADM Date: 11/26/17 Loc: ED Attending Dr: Ordering Physician: SARAH MOFFETT MD Date of Service: 11/26/17 Procedure(s): XR chest routine 2V Accession Number(s): [id number] cc: ED MD ZUHAIR Fluoro Time In Minutes: ROUTINE CHEST, TWO VIEWS: HISTORY: Shortness of breath. Underlying moderate emphysematous changes and small left pleural effusion versus left pleural thickening is unchanged over multiple previous exams dating back to 10/31/17. The lungs are clear. No evidence for pneumonia or pneumothorax. Heart and mediastinal structures are within normal limits. IMPRESSION: No change. Emphysema. Small left pleural effusion versus left pleural thickening. Trans cribed By: TTR Dictated By: NAIN OAKLEY JR, MD Electronically Authenticated By: NAIN OAKLEY JR, MD Signed Date/Time: 11/26/17758 DD/ [id number] [address] XRay Report Signed Patient: JESUS MCLEOD MR#: [id number] : 1950 Acct:[id number] Age/Sex: 68 / F ADM Date: 04/14/19 Loc: ED Attending Dr: Ordering Physician: Rosita Del Rio MD Date of Service: 04/14/19 Procedure(s): XR chest 1V ap Accession Number(s): [id number] cc: Rosita Del Rio MD Fluoro Time In Minutes: CHEST 1 VIEW INDICATION: chest pain. COMPARISON: 11/26/2017 FINDINGS: Support devices: None. Heart: Within normal limits. Lungs/Pleura: Streaky left basilar airspace disease with small effusion/pleural thickening. Clear right lung. Additional findings: None. IMPRESSION: 1. Pulmonary findings as above. Signer Name: Alexi Mojica MD Signed: 04/14/2019 12:07 PM Workstation Name: [id number] Critical care attestation.: If time is entered above; I have spent that time in minutes in the direct care of this critically ill patient, excluding procedure time. ED Disposition Clinical Impression: History of headache, Dehydration, COPD (chronic obstructive pulmonary disease), Diarrhea Disposition: TO HOME OR SELFCARE Is pt being admited?: No Does the pt Need Aspirin: No Condition: Stable Instructions: Chronic Obstructive Pulmonary Disease (ED) Additional Instructions: Drink plenty of fluids. Advance diet as tolerated. Take the medications as needed and directed. Please follow-up with your primary care doctor within the next 5 to 7 days. Drink plenty of fluids. Return to the emergency room right away with new, worsened or different symptoms, or symptoms not present on the initial emergency room evaluation. Continue current outpatient medications Prescriptions: levoFLOXacin [Levaquin TAB] 500 mg PO QDAY #4 tablet Ibuprofen [Motrin] 400 mg PO Q8H PRN #20 tablet PRN Reason: Headache Albuterol Sulfate [Proair Respiclick] 90 mcg IH Q4HR PRN #2 aer.pow.ba PRN Reason: Wheezing Acetaminophen [Tylenol] 325 mg PO Q4HR PRN #15 capsule PRN Reason: Headache Referrals: MERLIN CRUZ [Other] - 3-5 Days
--- NOTE | 2019-04-14 12:12 | XRay Report ---
CHEST 1 VIEW INDICATION: chest pain. COMPARISON: 11/26/2017 FINDINGS: Support devices: None. Heart: Within normal limits. Lungs/Pleura: Streaky left basilar airspace disease with small effusion/pleural thickening. Clear rig ht lung. Additional findings: None. IMPRESSION: 1. Pulmonary findings as above. Signer Name: Alexi Mojica MD Signed: 04/14/2019 12:07 PM Workstation Name: [id number]
[2019-04-14 12:20] LABS: INR 1.09 (0.87-1.13)
[2019-04-14 12:21] LABS: Alanine Aminotransferase 12 units/L (7-56); Albumin 3.4 g/dL (3.9-5); BUN/Creatinine Ratio 33; Blood Urea Nitrogen 23 mg/dL (7-17); Calcium 9.4 mg/dL (8.4-10.2); Hemolysis Index 1
[2019-04-14] MEDS ORDERED: KETOROLAC 30 MG/1 ML INJ IV ONE (13:33)
[2019-04-14] MEDS ORDERED: levoFLOXacin 500 MG TAB PO ONE (14:00)
[2019-04-14 15:22] LABS: BUN/Creatinine Ratio 38; Blood Urea Nitrogen 23 mg/dL (7-17); Calcium 8.5 mg/dL (8.4-10.2); Hemolysis Index 16
[2019-04-14 18:02] VITALS: BP 106/55
== END 2019-04-14 18:02 | disposition home or self-care (01) ==
LOC: ED 11:21
DX: E86.0 Dehydration (principal); J44.9 Chronic obstructive pulmonary disease, unspecified; G43.909 Migraine, unspecified, not intractable, without status migrainosus; I10 Essential (primary) hypertension; K21.9 Gastro-esophageal reflux disease without esophagitis; M19.90 Unspecified osteoarthritis, unspecified site; G47.30 Sleep apnea, unspecified; Z21 Asymptomatic human immunodeficiency virus [HIV] infection status; Z90.89 Acquired absence of other organs; Z90.710 Acquired absence of both cervix and uterus; Z79.899 Other long term (current) drug therapy; Z88.1 Allergy status to other antibiotic agents; Z88.8 Allergy status to other drugs, medicaments and biological substances
CPT/HCPCS: 36415; 71045; 80048; 80053; 82550; 83735; 84484; 85025; 85610; 93005; 93010; 96361; 96374; 96375; 99284; J1200; J1885; J2765; J7030; 80320; G0480

== ENCOUNTER 2020-09-13 19:01 | Emergency (ER) | payer MEDICARE ==
[2020-09-13] MEDS ORDERED: ONDANSETRON 4 MG ODT TAB PO ONE (21:01)
[2020-09-13] MEDS ORDERED: BUTALB/ACETAMINOPHEN/CAFFEINE TAB PO ONE (21:01)
[2020-09-13] MEDS ORDERED: IBUPROFEN 600 MG TAB PO ONE (21:01)
--- NOTE | 2020-09-13 21:06 | Emergency Department Report ---
ED Headache HPI - General Chief Complaint: Headache Stated Complaint: HEADACHE - History of Present Illness Initial Comments: Patient is a 69-year-old white female with a history of COPD, hypertension, GERD, HIV, chronic osteoarthritis, chronic migraine headaches, anxiety depression and bipolar disorder presents to the ED with complaint of acute exacerbation of her chronic headaches characterized by severe frontal pressure- like headache for the last 1 week with intermittent nausea. Patient states that she was initially evaluated at [facility] emergency department and given a prescription for Fioricet after extensive work-up but states that she has not filled this prescription because her caregiver keeps all her medical cards and that he has not been able to obtain the medication that was prescribed for her for headache. Patient states that in the last 2 days and especially in the last 12 hours, the headache got worse after working in the hot sun. Patient however states that the headache is typical of her chronic migraine headaches when she does not take any medications. Patient however denies fever, chills, dizziness, syncope, chest pain, shortness of breath, neck pain, change in vision, sore throat, nasal and sinus congestion, cough, abdominal pain, fall or traumatic injury and loss of consciousness Timing/Duration: 1 week Quality: severe, constant, pressure Head Injury Location: frontal, temporal Recent Head Trauma: no recent headache/trauma, chronic headaches Modifying Factors: improves with: medication Associated Symptoms: denies symptoms, facial pain, nausea/vomiting, sinus infection. denies: confusion, fatigue, fever/chills, flushing, loss of consciousness, nasal congestion, nasal drainage, numbness in legs/feet, seizures, stiff neck, vision changes, weakness, other Allergies/Adverse Reactions: Allergies amoxicillin [From Augmentin] Allergy (Verified 04/14/19 11:23) Unknown clavulanic acid [From Augmentin] Allergy (Verified 04/14/19 11:23) Unknown gentamicin Allergy (Verified 04/14/19 11:23) Unknown Home Medications: Ambulatory Orders ALBUTEROL Inhaler(NF) [VENTOLIN Inhaler(NF)] 2 puff IH Q4-6H PRN #1 inha 11/28/17 Albuterol Mdi (or & Nicu Only) [ProAir HFA Inhaler] 2 puff IH QID PRN #1 inha lation 11/28/17 Cetirizine HCl [ZyrTEC 10mg rapdis] 10 mg PO QDAY 21 Days #21 tab.rapdis 11/28/17 Pantoprazole [Protonix TAB] 20 mg PO DAILY #30 tablet. 11/28/17 Prednisone [predniSONE 10 mg (6-Day Pack, 21 Tabs)] 10 mg PO .TAPER #1 tab.ds.pk 11/28/17 Butalb/Acetaminophen/Caffeine [Fioricet 50-300-40 mg CAP] 1 cap PO Q6HR PRN #10 cap 03/08/18 Butalb/Acetaminophen/Caffeine [Fioricet 50-300-40 mg CAP] 1 cap PO Q6HR PRN #14 cap 03/20/18 Acetaminophen [Tylenol] 325 mg PO Q4HR PRN #15 capsule 04/14/19 Albuterol Sulfate [Proair Respiclick] 90 mcg IH Q4HR PRN #2 aer.pow.ba 04/14/19 Ibuprofen [Motrin] 400 mg PO Q8H PRN #20 tablet 04/14/19 levoFLOXacin [Levaquin TAB] 500 mg PO QDAY #4 tablet 04/14/19 Doxycycline Hyclate 100 mg PO Q12H #20 tablet. 09/13/20 Ibuprofen [Motrin] 600 mg PO Q8H PRN #20 tablet 09/13/20 ED Review of Systems ROS: Stated complaint: HEADACHE Other details as noted in HPI Constitutional: denies: chills, fever Eyes: denies: eye pain, eye discharge, vision change ENT: other (Frontal and maxillary sinus pressure). denies: ear pain, throat pa in Respiratory: denies: cough, shortness of breath, wheezing Cardiovascular: denies: chest pain, palpitations Endocrine: no symptoms reported Gastrointestinal: nausea. denies: abdominal pain, vomiting, diarrhea Genitourinary: denies: urgency, dysuria, discharge Musculoskeletal: denies: back pain, joint swelling, arthralgia Skin: denies: rash, lesions Neurological: headache. denies: weakness, paresthesias Psychiatric: denies: anxiety, depression Hematological/Lymphatic: denies: easy bleeding, easy bruising ED Past Medical Hx - Past Medical History Hx Hypertension: Yes Hx GERD: Yes Hx Arthritis: Yes Hx Headaches / Migraines: Yes Hx Psychiatric Treatment: Yes (depression) Hx COPD: Yes Hx HIV: Yes Additional medical history: sleep apnea blood in stool, migraine - Surgical History Additional Surgical History: tonsilectomy, hysterectomy, Broken right arm - Social History Smoking Status: Never Smoker Substance Use Type: None - Medications Home Medications: Home Medications Medication Instructions Recorded Confirmed Last Taken Type ALBUTEROL Inhaler(NF) [VENTOLIN 2 puff IH Q4-6H PRN #1 inha 11/28/17 Unknown Rx Inhaler(NF)] Albuterol Mdi (or & Nicu Only) 2 puff IH QID PRN #1 inhalation 11/28/17 Unknown Rx [ProAir HFA Inhaler] Cetirizine HCl [ZyrTEC 10mg rapdis] 10 mg PO QDAY 21 Days #21 11/28/17 Unknown Rx tab.rapdis Pantoprazole [Protonix TAB] 20 mg PO DAILY #30 tablet. 11/28/17 Unknown Rx Prednisone [predniSONE 10 mg 10 mg PO .TAPER #1 tab.ds.pk 11/28/17 Unknown Rx (6-Day Pack, 21 Tabs)] Butalb/Acetaminophen/Caffeine 1 cap PO Q6HR PRN #10 cap 03/08/18 Unknown Rx [Fioricet 50-300-40 mg CAP] Butalb/Acetaminophen/Caffeine 1 cap PO Q6HR PRN #14 cap 03/20/18 Unknown Rx [Fioricet 50-300-40 mg CAP] Acetaminophen [Tylenol] 325 mg PO Q4HR PRN #15 capsule 04/14/19 Unknown Rx Albuterol Sulfate [Proair 90 mcg IH Q4HR PRN #2 aer.pow.ba 04/14/19 Unknown Rx Respiclick] Ibuprofen [Motrin] 400 mg PO Q8H PRN #20 tablet 04/14/19 Unknown Rx levoFLOXacin [Levaquin TAB] 500 mg PO QDAY #4 tablet 04/14/19 Unknown Rx Doxycycline Hyclate 100 mg PO Q12H #20 tablet. 09/13/20 Unknown Rx Ibuprofen [Motrin] 600 mg PO Q8H PRN #20 tablet 09/13/20 Unknown Rx ED Physical Exam - General Limitations: No Limitations General appearance: alert, in no apparent distress - Head Head exam: Present: atraumatic, normocephalic, normal inspection - Eye Eye exam: Present: normal appearance, PERRL, EOMI Pupils: Present: normal accommodation - ENT ENT exam: Present: normal orophraynx, mucous membranes moist, TM's normal bilaterally, normal external ear exam, other (Palpable frontal and maxillary sinus tenderness) - Neck Neck exam: Present: normal inspection, full ROM - Respiratory Respiratory exam: Present: normal lung sounds bilaterally. Absent: respiratory distress, wheezes, rales, rhonchi, chest wall tenderness, accessory muscle use, decreased breath sounds - Cardiovascular Cardiovascular Exam: Present: regular rate, normal rhythm, normal heart sounds. Absent: systolic murmur, diastolic murmur, rubs, gallop - GI/Abdominal GI/Abdominal exam: Present: soft, normal bowel sounds. Absent: tenderness, guarding, rebound, hyperactive bowel sounds, hypoactive bowel sounds, organomegaly - Extremities Exam Extremities exam: Present: normal inspection, full ROM, normal capillary refill - Back Exam Back exam: Present: normal inspection, full ROM. Absent: tenderness, CVA tenderness (R), CVA tenderness (L), muscle spasm, paraspinal tenderness, vertebral tenderness - Neurological Exam Neurological exam: Present: alert, oriented X3, CN II-XII intact, normal gait, reflexes normal - Psychiatric Psychiatric exam: Present: normal affect, normal mood, anxious - Skin Skin exam: Present: warm, dry, intact, normal color. Absent: rash ED Course Vital Signs 09/13/20 09/13/20 21:17 21:20 Temperature 98.1 F Pulse Rate 69 Respiratory 16 16 Rate Blood Pressure 120/72 [Right] O2 Sat by Pulse 96 Oximetry ED Medical Decision Making - Medical Decision Making This is a 69-year-old white female with a history of COPD, chronic migraine headaches, anxiety depression and bipolar disorder presents to the ED with complaint of acute exacerbation of her chronic headaches characterized by severe frontal pressure-like headache for the last 1 week with intermittent nausea. Patient states that she was initially evaluated at [facility] emergency department and given a prescription for Fioricet after extensive work-up but states that she has not filled this prescription because her caregiver keeps all her medical cards and that he has not been able to obtain the medication that was prescribed for her for headache. Patient states that in the last 2 days and especially in the last 12 hours, the headache got worse after working in the hot sun. Patient however states that the headache is typical of her chronic migraine headaches when she does not take any medications. In the ED, patient is alert and oriented x3 and is not in any distress. Patient is anxious and appears to be in pain. Patient was treated for headache with Fioricet and ibuprofen oral tablet in the ED. On reevaluation, patient's headache is well controlled medications. Patient was discharged home and advised to ensure that she feels the prescription of Fioricet that were previously given from another hospital, and to follow-up with our primary care physician in 5 to 7 days for re evaluation. Patient is advised return to the ED immediately if symptoms get worse. - Differential Diagnosis Sinus headache, migraine headache, URI, tension headache, anxiety Critical care attestation.: If time is entered above; I have spent that time in minutes in the direct care of this critically ill patient, excluding procedure time. ED Disposition Clinical Impression: Sinus headache Chronic migraine without aura Qualifiers: Status migrainosus presence: with status migrainosus Intractability: not intractable Qualified Code(s): G43.701 - Chronic migraine without aura, not intractable, with status migrainosus Acute frontal sinusitis, unspecified Qualifiers: Recurrence: non-recurrent Qualified Code(s): J01.10 - Acute frontal sinusitis, unspecified Disposition: DC-01 TO HOME OR SELFCARE Is pt being admited?: No Does the pt Need Aspirin: No Condition: Stable Instructions: Sinusitis, Adult, [id number], Recurrent Migraine Headache, [id number] Additional Instructions: Take the previously prescribed pain medication for your headaches, in addition to the prescribed oral antibiotics for suspected sinus infection. Follow-up with the primary care physician in 5 to 7 days for reevaluation. Return to the ED immediately if symptoms get worse. Prescriptions: Doxycycline Hyclate 100 mg PO Q12H #20 tablet. Ibuprofen [Motrin] 600 mg PO Q8H PRN #20 tablet PRN Reason: Pain Referrals: [facility] [Provider Group] - 3-5 Days Time of Disposition: 21:10 Print Language: ROMANSH
[2020-09-13 21:18] VITALS: BP 120/72
== END 2020-09-13 21:15 | disposition home or self-care (01) ==
LOC: ED 19:01
DX: G43.701 Chronic migraine without aura, not intractable, with status migrainosus (principal); I10 Essential (primary) hypertension; J44.9 Chronic obstructive pulmonary disease, unspecified
CPT/HCPCS: 99283; Q0162